=== PATIENT | male | born 1975 | race African-American/Black ===

== ENCOUNTER 2016-09-23 21:11 | Inpatient (IN) ==
[2016-09-23] MEDS ORDERED: ONDANSETRON 4 MG/2 ML VIAL IV STA (21:59)
[2016-09-23] MEDS ORDERED: SODIUM CHLORIDE 0.9% 500 ML IV STA (21:59)
[2016-09-23] MEDS ORDERED: PANTOPRAZOLE 40 MG VIAL IV STA (21:59)
[2016-09-23] MEDS ORDERED: MORPHINE 2 MG/1 ML SYRINGE IV STA (21:59)
[2016-09-23] MEDS ORDERED: GLUCAGON 1 MG VIAL IV STA (21:59)
--- NOTE | 2016-09-23 22:03 | EKG Report ---
Stationary ECG Study [facility] ER Test Date: 09/23/2016 9:24:02 PM Pat Name: ELEAZAR CLIFTON Department: Room: Gender: M Post Form Remover: Debbie : 1975 Requested by: Lázaro Gant Order Number: [id number] Reading MD: NILAM BENITEZ Intervals [place] Rate: 83 P: 68 PA: 147 QRS: 43 QRSD: 101 T: 59 QT: 361 QTc: 401 Interpretive Statements SINUS RHYTHM Electronically Signed On 09-24-16 17:48:38 CDT by NILAM BENITEZ [email or web address]
--- NOTE | 2016-09-23 22:08 | Emergency Department Note ---
Carmelo Reyna Emily, am scribing for, and in the presence of, Lázaro Chairez MD 22: 07. Mihaela Reyna Charles R, MD, personally performed the services described in this documentation, ascribed by Janie Rhodes in my presence, and it is both accurate and complete . Arrival - Arrival Chief Complaint: Chest Pain Stated Complaint: CHEST PAIN/COUGHING UP BLOOD ED Nursing Triage Note: c/o chest pain in center of the chest since tuesday. some nausea, and coughing up blood, dizzy and SOB. states he has not ate in 1 week Mode of Arrival: Ambulatory Limitations: No Limitations Source: Patient - History of Present Illness HPI Narrative: Pt is a 41 y/o male who came to ED with c/o epigastric pain that has been ongoing since Tuesday, September 18, 2016. Pt states that food and fluids are coming back up from esophagus. Pt has a 10 second delay after drinking water in ED, when fluid comes up with blood tinge in color fluid. Pt states it suddenly started today after drinking gatorade and noticed blood in his emesis. He notes not eating solid food for this past week and denies melena. Pt reports having this issue at 17yr old, but nothing was down about it. He does drink ETOH of one pint of liquor per night, but notes not drinking anything since last Tuesday. Pt is a smoker too. He notes having a non painful umbilical hernia for years. No daily medication taken. Onset (ago): hour(s) Consistency: constant Severity: mild, moderate Severity scale (1-10): 4 Quality: fullness Allergies/Adverse Reactions: Allergies Allergy/AdvReac Type Severity Reaction Status Date / Time No Known Allergies Allergy Unverified 09/23/16 21:19 Home Medications: Home Medications Medication Instructions Recorded Confirmed Type No Known Home Medications [No 09/23/16 09/23/16 History Known Home Medications] Review of System - Review of System 12 point system: reviewed and no additional remarkable complaints except as stated - Review of System Constitutional: Absent: chills, fever Respiratory: Absent: respiratory distress Cardiovascular: Absent: chest pain Gastrointestinal: Present: abdominal pain (epigastric, mid sternum), nausea, vomiting (blood in vomit), other (food or fluids stuck in esophagus then comes back up). Absent: diarrhea, melena Musculoskeletal: Absent: arm pain, back pain, leg pain, neck pain Skin: Absent: rash Neurological: Absent: headache Psychiatric: Absent: anxiety Medical,Surgical,& Family Hx - Surgical History Orthopedic Surgeries: Surgical HX of;: Orthopedic Surgery (bilateral ACL) - Social History Smoking Status: Current every day smoker Frequency of Alcohol Use: Frequently Type of Drug Use: None Exam Vital Signs: Vital Signs Temperature 98.2 F 09/23/16 21:15 Pulse Rate 87 09/23/16 21:15 Respiratory Rate 20 09/23/16 21:15 Blood Pressure 135/93 09/23/16 21:15 O2 Sat by Pulse Oximetry 97 09/23/16 21:15 - General General appearance: alert, in no apparent distress - Head Head exam: Present: atraumatic, normocephalic - Eye Eye exam: Present: PERRL, EOMI - ENT ENT exam: Present: mucous membranes moist. Absent: mucous membranes dry - Neck Neck exam: Present: full ROM. Absent: tenderness - Chest Chest inspection: Present: symmetric chest wall rise. Absent: tenderness - Respiratory Respiratory exam: Present: normal lung sounds bilaterally. Absent: respiratory distress - Cardiovascular Cardiovascular exam: Present: regular rate, normal rhythm, normal heart sounds - Abdominal Exam Abdominal exam: Present: soft, tenderness (epigastric and mid epigastric), normal bowel sounds, hernia (reducible umbilical; non tenderness). Absent: distention, guarding, rebound - Extremities Exam Extremities exam: Present: full ROM. Absent: tenderness, pedal edema - Back Exam Back exam: Present: full ROM. Absent: tenderness - Neurological Exam Neurological exam: Present: alert, oriented X3, CN II-XII intact. Absent: motor sensory deficit - Psychiatric Psychiatric exam: Present: normal affect, normal mood - Skin Skin exam: Present: warm, dry, intact, normal color Course - Consultations Consultation #1: Hospitalist will admit patient Time: 23:23 Results - Labs CBC & BMP: 09/23/16 21:55 09/23/16 21:55 Lab Results: I have reviewed the patients labs - Diagnostic Findings Procedure: Chest x-ray: report reviewed by me (Mild pulmonary hypoinflation with atelectasis.) Critical Care Time Critical Care Time: Yes Total Critical Care Time: 60 Disposition Clinical Impression: Atypical chest pain, Dysphagia, Achalasia, Nausea & vomiting Case discussed with: patient Disposition: Still a Patient Condition: Stable Time of Disposition: 23:24
[2016-09-23 22:10] LABS: Basophils % 0.4 % (0.0-0.8); Eosinophils % 0.3 % (0.00-10.9); Hematocrit 47.3 VOL% (42.0-52.0); Hemoglobin 16.2 GM/DL (14.0-18.0); Immature Granulocytes % 0.1 %; Immature Granulocytes Absolute 0.01 #; Lymphocytes # 2.2 10*3/uL (1.4-4.0); Lymphocytes % 29.2 % (21.2-54.2); Mean Corpuscular HGB Conc 34.2 GM/DL (32-36); Mean Corpuscular Hemoglobin 32 PG (27-34); Mean Corpuscular Volume 93.3 FL (87-102); Mean Platelet Volume 9.9 FL (9.6-12.0); Monocytes # 0.4 10*3/uL (0.11-0.8); Neutrophils # 4.7 10*3/uL (1.4-7.4); Platelet Count 201 T/CUMM (130-400); Red Blood Count 5.07 MC/CUMM (3.8-5.5); Red Cell Distribution Width 13.2 % (9.3-17.3); White Blood Count 7.4 T/CUMM (4-12)
[2016-09-23 22:26] LABS: D-Dimer <= 0.5 MG/L FEU; PT Patient Result 10.5 SECS
--- NOTE | 2016-09-23 22:27 | XRay Report ---
XR chest 1V portable Indication: Chest pain. Chest one view: Heart size and mediastinal contour are normal. Lungs are hypoinflated but generally clear, except for minimal bibasilar atelectasis. Pleural spaces are clear. Bones are intact. Small curvilinear metallic density projects over the left mid chest. Impression: Mild pulmonary hypoinflation with atelectasis. PROCEDURE INTERPRETED AT [facility] DEPARTMENT OF RADIOLOGY Final Report Signed by: Marques Thibodeaux M.D.
--- NOTE | 2016-09-23 22:32 | CT Report ---
CT chest abdomen pelvis w con Indication: Chest pain, dysphagia, abdominal pain. CT CHEST, ABDOMEN AND PELVIS WITH CONTRAST DLP: 534 mGy*cm. One or more of the following dose reduction techniques was used: Automated exposure control, adjustment of the mA and/or kV according the patient size, or use of iterative reconstruction techniques. Comparison: None Technique: Axial CT images of the chest, abdomen and pelvis were obtained following the intravenous administration of Omnipaque 350, 100 cc. Oral contrast was not administered. Chest: Esophagus is dilated, fluid-filled with air-fluid levels on its entire length. Diffuse esophageal wall thickening noted as well. No hiatal hernia. Normal heart size. Aorta is unremarkable. No mediastinal, axillary or hilar lymphadenopathy. There are some small blebs at the pulmonary apices. Additionally, mild peribronchial thickening is noted in the lungs. No infiltrate, mass or pleural pathology identified. No bone lesions. Abdomen: Hypervascular focus posterior right liver lobe is present, rapidly washing out, consistent with a hemangioma. It measures 16 mm diameter. Liver is otherwise unremarkable. Gallbladder, spleen, pancreas, adrenal glands and the right kidney appear unremarkable. There is a nonobstructing 2 x 3 mm left kidney stone in the lower pole. No bowel obstruction, mesenteric edema or lymphadenopathy. Aorta is of normal caliber. Pelvis: Normal appendix without inflammation. Urinary bladder, prostate and rectosigmoid colon are within normal limits. No free fluid, free air or lymphadenopathy. Impression: 1. Evidence of achalasia with a dilated thick-walled esophagus. Does the patient have history of connective tissue disorder such as scleroderma? 2. Mild airways disease such as chronic bronchitis. Early/small blebs are present at both pulmonary apices. 3. Liver hemangioma. 4. Nonobstructing tiny left kidney stone. PROCEDURE INTERPRETED AT [facility] DEPARTMENT OF RADIOLOGY Final Report Signed by: Marques Thibodeaux M.D.
[2016-09-23 22:39] LABS: Alanine Aminotransferase 79 U/L (16-61); Albumin 4.2 G/DL (3.4-5.0); Alkaline Phosphatase 73 U/L (45-117); Amylase 122 U/L (25-115); Aspartate Amino Transferase 42 U/L (0-37); Blood Urea Nitrogen 19 MG/DL (7-18); Calcium 9.5 MG/DL (8.5-10.1); Glucose 131 MG/DL (74-106); Magnesium 2.4 MG/DL (1.8-2.4); Osmolality,Calculated 284.3 MOS/KG (273-304); Potassium 4.4 MMOL/L (3.5-5.1); Sodium 141 MMOL/L (136-145); Total Protein 7.6 G/DL (6.4-8.3)
[2016-09-23] MEDS ORDERED: GLUCAGON 1 MG VIAL ONE (22:57)
[2016-09-23] MEDS ORDERED: MORPHINE 2 MG/1 ML SYRINGE ONE (22:57)
[2016-09-23] MEDS ORDERED: PANTOPRAZOLE 40 MG VIAL IV ONE (22:57)
[2016-09-23] MEDS ORDERED: ONDANSETRON 4 MG/2 ML VIAL ONE (22:57)
--- NOTE | 2016-09-24 00:24 | Hospitalist History & Physical ---
Assessment and Plan (1) Achalasia Status: Acute Current Visit: Yes (2) Dysphagia Status: Acute Current Visit: Yes (3) Nausea & vomiting Status: Acute Assessment and plan: The results of the CT scan were reviewed. Patient definitely has achalasia. We will keep him n.p.o. Provide IV hydration check labs in the morning. We will consult GI. Current Visit: Yes History of Present Illness Chief complaint: Dysphasia History of present illness: Mr. Chavez is a 41 year old male with no significant past medical history presents to our ER tonight complaining of not being able to eat or drink anything. Patient reports even drinking water it would come up after a few seconds. Patient was coughing so bad earlier today he was starting to cough up spots of blood. Patient came up to our hospital for further evaluation. Patient had a CT scan that showed achalasia and I was consulted to admit the patient to the emergency room. Home Medications Medication Instructions Recorded Confirmed Type No Known Home Medications [No 09/23/16 09/23/16 History Known Home Medications] Allergies Allergy/AdvReac Type Severity Reaction Status Date / Time No Known Allergies Allergy Unverified 09/23/16 21:19 Medical,Surgical,& Family Hx - Medical History Medical History: noncontributory (None) - Surgical History Orthopedic Surgeries: Surgical HX of;: Orthopedic Surgery (bilateral ACL) - Social History Smoking Status: Current every day smoker Frequency of Alcohol Use: Frequently Type of Drug Use: None 12 point system: reviewed and no additional remarkable complaints except as stated Exam - Constitutional General appearance: normal weight - Head Head exam: Present: normal inspection - Eye Eye exam: Present: EOMI Pupils: Present: MAURICE - ENT ENT exam: Present: normal exam - Neck Neck exam: Present: normal inspection - Respiratory Respiratory exam: Present: clear to auscultation bilaterally - Cardiovascular Cardiovascular exam: Present: regular rate and rhythm - GI/Abdominal GI/Abdominal exam: Present: normal bowel sounds - Extremities Exam Extremities exam: Present: normal inspection - Back Exam Back exam: Present: normal inspection - Neurological Exam Neurological exam: Present: alert - Psychiatric Psychiatric exam: Present: normal affect - Skin Skin exam: Present: normal color Results - Labs CBC & BMP: 09/23/16 21:55 09/23/16 21:55
[2016-09-24] MEDS ORDERED: SODIUM CHLORIDE 0.9% 1,000 ML IV SCH (00:30)
[2016-09-24 07:20] LABS: Calcium 8.4 MG/DL (8.5-10.1); Osmolality,Calculated 286.8 MOS/KG (273-304)
[2016-09-24 07:42] LABS: Basophils % 0.5 % (0.0-0.8); Eosinophils # 0.1 10*3/uL (0.0-0.87); Eosinophils % 1.3 % (0.00-10.9); Immature Granulocytes % 0.5 %; Immature Granulocytes Absolute 0.04 #; Lymphocytes # 3.5 10*3/uL (1.4-4.0); Lymphocytes % 44.7 % (21.2-54.2); Mean Corpuscular HGB Conc 32.6 GM/DL (32-36); Mean Corpuscular Hemoglobin 31 PG (27-34); Mean Corpuscular Volume 96.4 FL (87-102); Mean Platelet Volume 9.8 FL (9.6-12.0); Monocytes # 0.6 10*3/uL (0.11-0.8); Monocytes % 7.1 % (1.7-12.7); Neutrophils # 3.6 10*3/uL (1.4-7.4); Neutrophils % 45.9 % (38.7-73.9); Platelet Count 186 T/CUMM (130-400); Red Blood Count 4.46 MC/CUMM (3.8-5.5); Red Cell Distribution Width 13.2 % (9.3-17.3); White Blood Count 7.9 T/CUMM (4-12)
--- NOTE | 2016-09-24 07:51 | EKG Report ---
Stationary ECG Study [facility] Test Date: 09/24/2016 7:52:02 AM Pat Name: ELEAZAR CLIFTON Department: Room: 540 Gender: M Uat Tester: MAGDALENA : 1975 Requested by: Lázaro Gant Order Number: [id number] Reading MD: NILAM BENITEZ Intervals [place] Rate: 73 P: 71 AK: 147 QRS: 80 QRSD: 106 T: 49 QT: 393 QTc: 418 Interpretive Statements SINUS RHYTHM Electronically Signed On 09-24-16 17:57:01 CDT by NILAM BENITEZ [id number]
--- NOTE | 2016-09-24 08:39 | Gastrointestinal Consult Note ---
<Janeth Melo - Last Filed: 09/24/16 09:20> Assessment and Plan (1) Dysphagia Status: Acute Assessment and plan: 09/23-One week history of inabilty to swallow liquids or solids w/o vomiting/ regurgitation with hemetemesis x 1 yesterday. Hx of heavy alcohol use. NSAID use recenlty. No prior endoscopy. Hgb stable at 14. Plan for EGD today to further evaluate. Plan and addendum to follow by Dr Banks. Current Visit: Yes History of Present Illness Chief complaint: Hemetemesis History of present illness: Mr. Chavez is a 41 year old male who presented to the hospital with onset of dysphagia, hemetemesis. Pt states that one week ago he had a fairly sudden onset of inability to swallow anything. He states as soon as he would swallow, within a few seconds it would come back up. He states he has tried several times over the last week to eat and everytime this would happen. He states that on last night, he had another episode of vomiting after eating and saw approximately a tablespoon of bright red blood mixed with some coffee ground emesis. He has not had a bowel movement in a week due to unable to eat anything but denies any melena or hematochezia prior to this. He states that he has never had this problem before. Denies any odonynphagia. Denies any fever, chills. He has had some weight loss just this week from not eating. Pt denies any chronic health issues. He takes 1-2 BC powders daily for the last week due to pain in his epigastric area. Denies regular GERD symptoms. He does smoke a 1/ 2 pack daily and for the last year has drank a 6 pack of beer and a pint of Gin on a daily basis on average. He drank prior to this past year but on occasion. His last drink was last Tuesday. He denies any history of DTs or withdrawal seizures and has not experienced any of these symptoms the past week. CT of abdomen shows achalasia with on other acute findings. Hgb is stable at 14. BUN/ Cr ration 13. Home Medications Medication Instructions Recorded Confirmed Type Esomeprazole Magnesium [Nexium] 40 mg PO DAILY #30 capsule 09/24/16 Rx Allergies Allergy/AdvReac Type Severity Reaction Status Date / Time No Known Allergies Allergy Unverified 09/23/16 21:19 Medical,Surgical,& Family Hx - Surgical History Orthopedic Surgeries: Surgical HX of;: Orthopedic Surgery (bilateral ACL) - Family History Family History: Reports;: Family Heart Disease (father), Family Hypertension ( sister ,mother), Additional Family History (father has asthma) - Social History Smoking Status: Current every day smoker Frequency of Alcohol Use: Frequently Type of Drug Use: None 12 point system: reviewed and no additional remarkable complaints except as stated - Constitutional Constitutional: Present: as per HPI - EENT Eyes: Present: as per HPI Ears: Present: as per HPI Nose, mouth and throat: Present: as per HPI - Cardiovascular Cardiovascular: Present: as per HPI - Respiratory Respiratory: Present: as per HPI - Gastrointestinal Gastrointestinal: Present: as per HPI, abdominal pain, coffee ground emesis, dysphagia, hematemesis, nausea, vomiting - Genitourinary Genitourinary: Present: as per HPI - Musculoskeletal Musculoskeletal: Present: as per HPI - Neurological Neurological: Present: as per HPI - Psychiatric Psychiatric: Present: as per HPI - Endocrine Endocrine: Present: as per HPI - Hematologic/Lymphatic Hematologic/Lymphatic: Present: as per HPI Exam - Constitutional Vitals: Period Temp Pulse Resp BP Sys/Nieves Pulse Ox Last 24 Hr 97.5 F-98.2 F 61-73 18-20 131-152/82-103 98-100 General appearance: normal weight, no acute distress - Head Head exam: Present: normal inspection, normocephalic - Eye Eye exam: Present: other (lids and conjunctiva unremarkable). Absent: scleral icterus - ENT ENT exam: Present: normal exam, normal oropharynx - Neck Neck exam: Present: normal inspection - Respiratory Respiratory exam: Present: clear to auscultation bilaterally. Absent: rales, rhonchi, wheezes - Cardiovascular Cardiovascular exam: Present: regular rate and rhythm. Absent: diastolic murmur , JVD, systolic murmur - GI/Abdominal GI/Abdominal exam: Present: normal bowel sounds, tenderness, soft. Absent: ascites, distended, mass, organomegaly - Back Exam Back exam: Present: normal inspection - Neurological Exam Neurological exam: Present: alert, oriented X3 - Psychiatric Psychiatric exam: Present: normal affect, normal mood - Skin Skin exam: Present: normal color, warm, dry Results - Labs CBC & BMP: 09/24/16 06:10 09/24/16 06:10 Lab Results: I have reviewed the past 24 hour labs - Diagnostic Findings Procedure: CT Abdomen and Pelvis: report reviewed by me <Lobito Banks - Last Filed: 09/24/16 12:34> History of Present Illness History of present illness: Mr. Chavez is a 41 year old male Exam - Constitutional Vitals: Period Temp Pulse Resp BP Sys/Nieves Pulse Ox Last 24 Hr 97.5 F-98.2 F 58-73 16-20 131-152/82-107 98-100 Results - Labs CBC & BMP: 09/24/16 06:10 09/24/16 06:10
[2016-09-24] MEDS ORDERED: PANTOPRAZOLE 40 MG VIAL IV SCH (09:00)
[2016-09-24] MEDS ORDERED: NICOTINE 21 MG/24 HR PATCH TRANSDERM SCH (10:00)
--- NOTE | 2016-09-24 10:47 | Discharge Summary ---
Hospital Course - Hospital Course Hospital Course: 41-year-old -German male presents emergency room with complaints of painful swallowing. Patient's symptoms are consistent with achalasia and GI was consulted. Dr. Banks did an EGD today which shows that patient has gastric ulcers, Abena-Deshpande tear and dilated esophagus with retained fluid suggestive of achalasia. He recommends PPIs twice a day. Patient does not have insurance and we will have him take [id number] Nexium twice a day. Patient is a heavy drinker and a smoker both of which are worsening these conditions. Dr. Banks recommended a barium swallow and for him to stop drinking ETOH. Barium swallow findings are consistent with achalasia. He will need outpatient manometry. Procardia XL prescribes prn chest pain. F/U with Dr. Banks in 1-2 weeks - Time spent with patient Time with patient DS: Less than 30 minutes (25 min) Specialty Discharge - Follow Up or Referrals Follow up with: [facility] [Provider Group] - 1 Month (Call Tuesday for an appointment) Lobito Banks MD [Physician] - 2 Weeks Discharge Plan - Discharge Data Disposition: Disch To Home/Self Care Condition at Discharge: Stable Discharge Diet: heart healthy Activity: resume usual activities as tolerated Hygiene: no restrictions Weight Bearing at Discharge: full weight bearing - Discharge Medications New NIFEdipine CAP [Procardia] 10 mg PO TID PRN #90 capsule PRN Reason: Chest Pain Continue Esomeprazole Magnesium [Nexium] 40 mg PO DAILY #60 capsule - Follow Up or Referral Follow Up: [facility] [Provider Group] - 1 Month (Call Tuesday for an appointment) Lobito Banks MD [Physician] - 2 Weeks - Forms/Instructions Instructions: Esomeprazole (By mouth), Chest Pain (DC), Chronic Dysphagia (DC) Additional Discharge Instructions: discharge after EGD, please call me when EGD done. Needs to stop drinking. Nexium is over the counter. Outpatient manometry through Dr. Brambila office Exam - Constitutional Vitals: Period Temp Pulse Resp BP Sys/Nieves Pulse Ox Last 24 Hr 97.5 F-98.2 F 61-73 18-20 131-152/82-103 98-100 General appearance: normal weight, no acute distress - Respiratory Respiratory exam: Present: clear to auscultation bilaterally. Absent: rhonchi, wheezes - Cardiovascular Cardiovascular exam: Present: regular rate and rhythm - GI/Abdominal GI/Abdominal exam: Present: normal bowel sounds, soft. Absent: tenderness - Extremities Exam Extremities exam: Present: normal inspection, normal capillary refill Discharge Results Labs on day of discharge: Labs from last 24 hours 09/24/16 09/24/16 09/24/16 06:10 06:10 06:10 WBC 7.9 RBC 4.46 Hgb 14.0 D Hct 43.0 MCV 96.4 MCH 31 MCHC 32.6 RDW 13.2 Plt Count 186 MPV 9.8 Neut % (Auto) 45.9 Lymph % (Auto) 44.7 Loup % (Auto) 7.1 Eos % (Auto) 1.3 Baso % (Auto) 0.5 Neut # (Auto) 3.6 Lymph # (Auto) 3.5 [place]oup # (Auto) 0.6 Eos # (Auto) 0.1 Baso # (Auto) 0.0 Immature Gran % 0.5 Nucleated RBC % 0.0 Immature Gran # 0.04 Nucleated RBCs # 0.00 Sodium 144 Potassium 4.0 Chloride 108 H Carbon Dioxide 27 Anion Gap 13.0 BUN 15 Creatinine 1.10 GFR Calculation 100 BUN/Creatinine Ratio 13.00 Glucose 103 Calculated Osmolality 286.8 Calcium 8.4 L Troponin I < 0.015 09/24/16 01:22 WBC RBC Hgb Hct MCV MCH MCHC RDW Plt Count MPV Neut % (Auto) Lymph % (Auto) [place] % (Auto) Eos % (Auto) Baso % (Auto) Neut # (Auto) Lymph # (Auto) Loup # (Auto) Eos # (Auto) Baso # (Auto) Immature Gran % Nucleated RBC % Immature Gran # Nucleated RBCs # Sodium Potassium Chloride Carbon Dioxide Anion Gap BUN Creatinine GFR Calculation BUN/Creatinine Ratio Glucose Calculated Osmolality Calcium Troponin I < 0.015 DS: Provider Date of admission: 09/23/16 23:20 Primary care physician: . No PCP Attending physician on admission: Rosmery Clark MD Consults: 09/24/16 00:17 Consult to Physician [CONS] Routine Comment: Achalasia Consulting Provider: Lobito Banks Consult to Specialist Group: Gastroenterology When should Consulting Provider be notified: In am Person Notified: CASIE SEAY Date Notified: 09/24/16 Time Notified: 08:54 Discharging clinician: Rosmery Clark MD
[2016-09-24] MEDS ORDERED: PROPOFOL 200 MG/20 ML VIAL IV ONE (12:21)
[2016-09-24] MEDS ORDERED: LIDOCAINE 2% 5 ML VIAL ONE (12:21)
--- NOTE | 2016-09-24 12:37 | Anesthesia ---
Anesthesia Post OP - Post Ansesthetic Evaluation Patient seen in post op: Yes Resp: within normal limits CV: within normal limits Mental: within normal limits Temp: within normal limits [id number]: within normal limits Nausea and Vomiting: within normal limits Pain: within normal limits
--- NOTE | 2016-09-24 12:37 | History and Physical Update ---
History and Physical Update - History and Physical H&P was reviewed, the patient examined and there: are no changes in the patients condition since last H&P was completed. - Physical Exam Mental Status: alert and oriented Heart: regular rate and rhythm Lung: clear to auscultation Abdomen: within normal limits Vitals: within normal limits
--- NOTE | 2016-09-24 12:43 | Operative Note ---
Date of procedure: 09/24/16 Pre-op diagnosis: Dysphagia, dilated esophagus on CT, hematemesis Procedure: Procedure: Esophagogastroduodenoscopy with biopsies gastric ulcers Brief clinical abstract: Patient is a 41-year-old male with history of alcohol abuse admitted after a couple of episodes of scant hematemesis last night. He has been hemodynamically stable. Hemoglobin is 14. He does complain of difficulty swallowing over the last week with intermittent nausea and vomiting. Indication for procedure: Hematemesis, dysphagia Endoscopic findings:[After informed consent was obtained, the patient was placed in the left lateral decubitus position. The gastroscope was inserted in the upper esophagus under direct vision with no resistance encountered. Esophageal mucosa was carefully examined. Esophageal lumen was moderately dilated. There was some retained fluid in the esophagus estimated to be 15-20 cc which was suctioned. In the distal 2-3 cm of the esophagus there was a Abena-Deshpande tear anteriorly with no visible vessel or clot. Squamocolumnar junction was sharply demarcated above a small hiatal hernia. The endoscope was advanced in the stomach which was carefully examined including retroflexed view of the cardia and fundus. 2 ulcers with diameters between 1 and 2 cm diameter were noted just distal to the angularis. Both of these were clean base with no mass-effect and no visible vessel. Multiple biopsies were obtained from them for pathologic examination. Patient has gastritis changes throughout the stomach. The pyloric channel, duodenal bulb, second and third portion of the duodenum were normal. The endoscope was removed and patient appeared to tolerate the procedure well. Impression: #1 gastric ulcers-appearance suggests low risk of significant further bleeding #2 Abena-Deshpande tear #3 dilated esophagus with some retained fluid-could suggest achalasia Recommendations: PPI therapy daily. If discharged today, schedule outpatient barium swallow to assess dysphagia symptoms and dilated esophagus further. Stop drinking alcohol. Anesthesia: MAC Surgeon / Physician: Lobito Banks Estimated blood loss: minimal Specimens: other (Gastric ulcers) Condition: stable Disposition: post procedure unit Results - Labs CBC & BMP: 09/24/16 06:10 09/24/16 06:10 Discharge Plan - Discharge Data Disposition: Disch To Home/Self Care - Discharge Medications New Esomeprazole Magnesium [Nexium] 40 mg PO DAILY #30 capsule - Follow Up or Referral - Forms/Instructions Instructions: Esomeprazole (By mouth), Chest Pain (DC)
--- NOTE | 2016-09-24 14:19 | Fluoroscopy Report ---
Barium swallow Indication: Achalasia Findings: There is poor primary peristalsis and dilatation of the esophagus. No mass effect, ulceration or filling defects are identified. A few tertiary contractions were visualized. There is tapering of the distal esophagus and poor emptying of the esophageal contents. No other abnormalities were demonstrated. Fluoroscopy time 26 seconds. Impression: Findings as described above, can be seen with achalasia. PROCEDURE INTERPRETED AT [facility] DEPARTMENT OF RADIOLOGY Final Report Signed by: Dr. Adarsh Watkins
[2016-09-24 16:31] VITALS: BP 136/87
--- NOTE | 2016-09-27 11:23 | Pathology Report from [facility] ---
ACCESSION # : [id number] PATIENT NAME : Eleazar Chavez ORDERING DR : YASH MENDEZ MD CLINICAL HX: Gastric ulcers POST-OP DX: Same SPECIMEN INFO: Gastric ulcers GROSS DESCRIPTION: Received in formalin labeled "ELEAZAR CHAVEZ" is a 0.5 x 0.4 cm aggregate of tissue submitted in one cassette. DIAGNOSIS FOR ELEAZAR CHAVEZ: GASTRIC ULCERS BIOPSY: Acute and chronic gastritis with reactive glandular changes. H. pylori not seen on special stain. SERVICE DATE: 09/26/2016 REPORT DATE: 09/27/2016 PATHOLOGIST: Kimberley Choi M.D. [facility]
== END 2016-09-24 16:40 | disposition home or self-care (01) | DRG 391 ==
LOC: N.ED 21:11 → N.EDINP 23:20 → N.5E 23:54
PROVIDERS: ADMIT Internal Medicine; ATTEND Internal Medicine

== ENCOUNTER 2018-08-17 19:31 | Inpatient (IN) ==
[2018-08-17 20:02] LABS: Basophils # 0.1 10*3/uL (0.0-0.2); Basophils % 0.5 % (0.0-0.8); Eosinophils % 0.3 % (0.00-10.9); Hematocrit 42.8 VOL% (42.0-52.0); Hemoglobin 14.2 GM/DL (14.0-18.0); Immature Granulocytes % 0.3 %; Immature Granulocytes Absolute 0.03 #; Lymphocytes # 2.5 10*3/uL (1.4-4.0); Lymphocytes % 22.3 % (21.2-54.2); Mean Corpuscular HGB Conc 33.2 GM/DL (32-36); Mean Corpuscular Hemoglobin 32 PG (27-34); Mean Corpuscular Volume 95.7 FL (87-102); Mean Platelet Volume 9.3 FL (9.6-12.0); Monocytes # 0.7 10*3/uL (0.11-0.8); Monocytes % 6.5 % (1.7-12.7); Neutrophils # 7.8 10*3/uL (1.4-7.4); Neutrophils % 70.1 % (38.7-73.9); Platelet Count 213 T/CUMM (130-400); Red Blood Count 4.47 MC/CUMM (3.8-5.5); Red Cell Distribution Width 14.1 % (9.3-17.3); White Blood Count 11.1 T/CUMM (4-12)
[2018-08-17] MEDS ORDERED: ALUM/MAG/SIMETH/LIDO VISC 1:1 30 ML BOTTLE PO STA (20:27)
[2018-08-17] MEDS ORDERED: THIAMINE INJ 100 MG, FOLIC ACID INJ 1 MG, MAGNESIUM SULF INJ 2 GM, MULTIVITAMIN INJ 10 ... IV ONE (20:27)
[2018-08-17 20:31] LABS: Alanine Aminotransferase 101 U/L (16-61); Albumin 3.6 G/DL (3.4-5.0); Alkaline Phosphatase 90 U/L (45-117); Aspartate Amino Transferase 119 U/L (0-37); Bilirubin,Total < 0.39 MG/DL (0.2-1.0); Blood Urea Nitrogen 7 MG/DL (7-18); Calcium 8.2 MG/DL (8.5-10.1); Glucose 177 MG/DL (74-106); Osmolality,Calculated 278.5 MOS/KG (273-304); Potassium 3.2 MMOL/L (3.5-5.1); Sodium 139 MMOL/L (136-145); Total Protein 7.1 G/DL (6.4-8.3)
[2018-08-17] MEDS ORDERED: MORPHINE 4 MG/1 ML VIAL IV STA (21:10)
[2018-08-17] MEDS ORDERED: ONDANSETRON 4 MG/2 ML VIAL IV ONE (21:10)
[2018-08-17] MEDS ORDERED: PROMETHAZINE 25 MG/1 ML VIAL IM PRN (23:32)
[2018-08-17] MEDS ORDERED: NICOTINE 21 MG/24 HR PATCH TRANSDERM PRN (23:32)
[2018-08-17] MEDS ORDERED: ACETAMINOPHEN 325 MG TABLET PO PRN (23:32)
[2018-08-18 00:04] LABS: Risk Ratio 1.43; VLDL CHOLESTEROL 18.4 MG/DL
[2018-08-18 01:11] LABS: Alanine Aminotransferase 105 U/L (16-61); Albumin 3.6 G/DL (3.4-5.0); Alkaline Phosphatase 91 U/L (45-117); Aspartate Amino Transferase 125 U/L (0-37); Bilirubin,Indirect 0.3 MG/DL (0.0-1.0); Bilirubin,Total < 0.39 MG/DL (0.2-1.0); Total Protein 7.2 G/DL (6.4-8.3)
[2018-08-18] MEDS: MORPHINE 4 MG/1 ML VIAL IV PRN ×2 (01:20→05:15)
[2018-08-18] MEDS: SODIUM CHLORIDE 0.9% 1,000 ML IV SCH ×3 (01:21→13:21)
[2018-08-18 01:55] LABS: Hepatitis A Ab IgM Quant 0.22 Index; Hepatitis A Ab IgM Result Negative (Negative); Hepatitis B Core IgM Result Negative (Negative); Hepatitis B Surface Ag Quant < 0.10 Index; Hepatitis B Surface Ag Result Negative (Negative); Hepatitis C Virus Ab Quant 0.03 Index; Hepatitis C Virus Ab Result Negative (Negative)
[2018-08-18 04:55] LABS: Basophils % 0.2 % (0.0-0.8); Hematocrit 42.9 VOL% (42.0-52.0); Immature Granulocytes % 0.3 %; Immature Granulocytes Absolute 0.03 #; Lymphocytes # 1.1 10*3/uL (1.4-4.0); Lymphocytes % 11.2 % (21.2-54.2); Mean Corpuscular HGB Conc 32.6 GM/DL (32-36); Mean Corpuscular Hemoglobin 32 PG (27-34); Mean Corpuscular Volume 96.4 FL (87-102); Mean Platelet Volume 9.7 FL (9.6-12.0); Monocytes # 0.5 10*3/uL (0.11-0.8); Monocytes % 5.5 % (1.7-12.7); Neutrophils % 82.8 % (38.7-73.9); Platelet Count 191 T/CUMM (130-400); Red Blood Count 4.45 MC/CUMM (3.8-5.5); Red Cell Distribution Width 14.1 % (9.3-17.3); White Blood Count 9.6 T/CUMM (4-12)
[2018-08-18 05:00] LABS: Apearance,Urine CLEAR (Clear); Bilirubin,Urine Negative (Negative); Blood, Urine Small mg/dL (Negative); Glucose,Urine (UA) 50 mg/dL (Negative); Ketones,Urine 20 mg/dL (Negative); Mucus,Urine Occasional /LPF (Occasional); Nitrite,Urine Negative (Negative); Protein,Urine Negative; RBC,Urine 3 /HPF (0-4); Squamous Epithelial Cell,Urine Occasional /HPF (0-10); Urine Color Yellow (Yellow); Urine Urobilinogen < 2.0 EU/DL (0.2-1.0)
[2018-08-18 05:03] LABS: Barbiturates Screen,Urine Negative (Negative); Benzodiazepines Screen,Urine Negative (Negative); Cannabinoid Screen,Urine Negative (Negative); Opiate Screen,Urine Positive (Negative); Phencyclidine Screen,Urine Negative (Negative)
[2018-08-18 05:08] LABS: Albumin 3.5 G/DL (3.4-5.0); Bilirubin,Total 0.6 MG/DL (0.2-1.0); Calcium 7.3 MG/DL (8.5-10.1); Osmolality,Calculated 276.4 MOS/KG (273-304); Potassium 3.5 MMOL/L (3.5-5.1)
[2018-08-18] MEDS: ONDANSETRON 4 MG/2 ML VIAL IV PRN ×4 (05:15→17:27)
[2018-08-18] MEDS: HYDROmorphone 2 MG/1 ML VIAL IV PRN ×5 (06:14→22:31)
[2018-08-18] MEDS: PANTOPRAZOLE 40 MG VIAL IV SCH (09:14)
[2018-08-19] MEDS: SODIUM CHLORIDE 0.9% 1,000 ML IV SCH ×5 (00:15→15:05)
[2018-08-19] MEDS: HYDROmorphone 2 MG/1 ML VIAL IV PRN ×3 (02:13→16:17)
[2018-08-19 06:11] LABS: Osmolality,Calculated 268.8 MOS/KG (273-304); Potassium 3.5 MMOL/L (3.5-5.1)
[2018-08-19] MEDS: PANTOPRAZOLE 40 MG VIAL IV SCH (08:14)
[2018-08-19] MEDS: MAGNESIUM SULFATE 1 GM/2 ML VIAL IM SCH ×2 (10:58→16:11)
[2018-08-19] MEDS ORDERED: MAGNESIUM CITRATE 300 ML BOTTLE PO ONE (17:42)
[2018-08-19] MEDS ORDERED: MAGNESIUM SULF RIDER 4 GM in PREMIX 1 EACH IV PRN (17:43)
[2018-08-19] MEDS ORDERED: POTASSIUM CHLORIDE RIDER 10 MEQ in PREMIX 1 EACH IV PRN (17:43)
[2018-08-19] MEDS ORDERED: MAGNESIUM SULF RIDER 2 GM in PREMIX 1 EACH IV PRN (17:43)
[2018-08-19] MEDS ORDERED: hydrALAZINE 20 MG/1 ML VIAL IV PRN (17:45)
[2018-08-20] MEDS: SODIUM CHLORIDE 0.9% 1,000 ML IV SCH ×3 (00:52→07:30)
[2018-08-20] MEDS: HYDROmorphone 2 MG/1 ML VIAL IV PRN (04:23)
[2018-08-20 06:05] LABS: Calcium 7.3 MG/DL (8.5-10.1); Osmolality,Calculated 266.1 MOS/KG (273-304); Potassium 3.6 MMOL/L (3.5-5.1)
[2018-08-20] MEDS: PANTOPRAZOLE 40 MG TABLET PO SCH (08:17)
[2018-08-20] MEDS ORDERED: ALUMINUM/MAGNES/SIMETH MAX STR 30 ML UDCUP PO PRN (21:58)
[2018-08-21 09:27] LABS: Albumin 3.1 G/DL (3.4-5.0); Bilirubin,Direct 0.25 MG/DL (0.0-0.20); Bilirubin,Indirect 1.1 MG/DL (0.0-1.0); Bilirubin,Total 1.3 MG/DL (0.2-1.0); Total Protein 7.4 G/DL (6.4-8.3)
[2018-08-21] MEDS: PANTOPRAZOLE 40 MG TABLET PO SCH (09:29)
[2018-08-21 11:49] VITALS: BP 119/89
== END 2018-08-21 14:45 | disposition home or self-care (01) | DRG 440 ==
LOC: N.ED 19:31 → N.EDINP 23:32 → SUATTDRO 23:32 → N.2E 08-18 00:29
PROVIDERS: ADMIT Internal Medicine; ATTEND Internal Medicine

== ENCOUNTER 2019-11-08 05:03 | Observation (INO) ==
[2019-11-08] MEDS ORDERED: PANTOPRAZOLE 40 MG VIAL IV STA (06:14)
[2019-11-08] MEDS ORDERED: ONDANSETRON 4 MG/2 ML VIAL IV STA (06:14)
[2019-11-08] MEDS ORDERED: SODIUM CHLORIDE 0.9% 2,000 ML IV STA (06:14)
[2019-11-08] MEDS ORDERED: HYDROmorphone 2 MG/1 ML VIAL IV STA ×2 (06:14→07:30)
[2019-11-08 06:15] LABS: Basophils % 0.5 % (0.0-0.8); Eosinophils # 0.1 10*3/uL (0.0-0.87); Eosinophils % 1.1 % (0.00-10.9); Hematocrit 41.7 VOL% (42.0-52.0); Hemoglobin 14.4 GM/DL (14.0-18.0); Immature Granulocytes % 0.3 %; Immature Granulocytes Absolute 0.02 #; Lymphocytes # 1.6 10*3/uL (1.4-4.0); Lymphocytes % 21.6 % (21.2-54.2); Mean Corpuscular HGB Conc 34.5 GM/DL (32-36); Mean Corpuscular Volume 94.8 FL (87-102); Mean Platelet Volume 9.8 FL (9.6-12.0); Monocytes % 11.4 % (1.7-12.7); Neutrophils % 65.1 % (38.7-73.9); Platelet Count 267 T/CUMM (130-400); Red Cell Distribution Width 13.6 % (9.3-17.3); White Blood Count 7.5 T/CUMM (4-12)
[2019-11-08 06:31] LABS: Alanine Aminotransferase 149 U/L (16-61); Albumin 3.8 G/DL (3.4-5.0); Alkaline Phosphatase 151 U/L (45-117); Aspartate Amino Transferase 153 U/L (0-37); Bilirubin,Total < 0.39 MG/DL (0.2-1.0); Blood Urea Nitrogen 9 MG/DL (7-18); Calcium 9.6 MG/DL (8.5-10.1); Estimated Glom Filtration Rate 113 ML/MIN; Glucose 129 MG/DL (74-106); Osmolality,Calculated 275.7 MOS/KG (273-304); Total Protein 8.2 G/DL (6.4-8.3)
[2019-11-08] MEDS ORDERED: LORazepam 2 MG/1 ML VIAL IV PRN (07:02)
[2019-11-08 07:46] LABS: Apearance,Urine CLEAR (Clear); Bilirubin,Urine Negative (Negative); Blood, Urine Negative (Negative); Glucose,Urine (UA) Negative (Negative); Ketones,Urine Negative (Negative); Mucus,Urine Few /LPF (Occasional); Nitrite,Urine Negative (Negative); Protein,Urine Negative; RBC,Urine 3 /HPF (0-4); Squamous Epithelial Cell,Urine Occasional /HPF (0-10); Urine Color Yellow (Yellow); Urine Specific Gravity 1.054 (1.001-1.035); Urine Urobilinogen < 2.0 EU/DL (0.2-1.0); WBC,Urine <1 /HPF (0-6)
[2019-11-08 08:07] LABS: Barbiturates Screen,Urine Negative (Negative); Benzodiazepines Screen,Urine Negative (Negative); Cannabinoid Screen,Urine Negative (Negative); Opiate Screen,Urine Positive (Negative); Phencyclidine Screen,Urine Negative (Negative)
[2019-11-08] MEDS ORDERED: BISACODYL 5 MG TABLET PO PRN (09:08)
[2019-11-08] MEDS ORDERED: SIMETHICONE CHEW 125 MG TABLET PO PRN (09:08)
[2019-11-08] MEDS ORDERED: DOCUSATE SODIUM 100 MG CAPSULE PO PRN (09:08)
[2019-11-08] MEDS ORDERED: guaiFENesin/DM ER 600-30 MG TABLET PO PRN (09:08)
[2019-11-08] MEDS ORDERED: NICOTINE 21 MG/24 HR PATCH TRANSDERM PRN (09:08)
[2019-11-08] MEDS ORDERED: DEXTROSE 50% 25 GM/50 ML VIAL IV PRN (09:08)
[2019-11-08] MEDS ORDERED: diphenhydrAMINE CAP 25 MG CAPSULE PO PRN (09:08)
[2019-11-08] MEDS ORDERED: GLUCAGON 1 MG VIAL IM PRN (09:08)
[2019-11-08] MEDS ORDERED: hydrALAZINE 20 MG/1 ML VIAL IV PRN (09:08)
[2019-11-08] MEDS ORDERED: amLODIPine 5 MG TABLET PO STA (09:12)
[2019-11-08] MEDS ORDERED: carvediloL 3.125 MG TABLET PO STA (09:13)
[2019-11-08] MEDS: LACTATED RINGERS 1,000 ML IV SCH ×2 (09:21→20:38)
[2019-11-08] MEDS ORDERED: ALBUTEROL/IPRATROPIUM 3 ML NEB RESP TX PRN (09:23)
[2019-11-08] MEDS: THIAMINE 200 MG/2 ML VIAL IV SCH (09:27)
[2019-11-08] MEDS: ENOXAPARIN 40 MG/0.4 ML SYRINGE SUBCUT SCH (09:27)
[2019-11-08] MEDS: THIAMINE INJ 100 MG, FOLIC ACID INJ 1 MG, MULTIVITAMIN INJ 10 ML in SODIUM CHLORIDE 0.9... IV SCH (10:09)
[2019-11-08] MEDS: HYDROmorphone 2 MG/1 ML VIAL IV PRN ×3 (10:28→20:37)
[2019-11-08] MEDS: carvediloL 6.25 MG TABLET PO SCH (20:38)
[2019-11-09] MEDS: LACTATED RINGERS 1,000 ML IV SCH ×3 (00:44→11:16)
[2019-11-09] MEDS: HYDROmorphone 2 MG/1 ML VIAL IV PRN ×3 (02:45→13:43)
[2019-11-09 06:36] LABS: Basophils % 0.4 % (0.0-0.8); Eosinophils # 0.1 10*3/uL (0.0-0.87); Hemoglobin 12.5 GM/DL (14.0-18.0); Immature Granulocytes % 0.3 %; Immature Granulocytes Absolute 0.03 #; Lymphocytes # 1.7 10*3/uL (1.4-4.0); Lymphocytes % 16.3 % (21.2-54.2); Mean Corpuscular HGB Conc 33.8 GM/DL (32-36); Mean Corpuscular Volume 97.4 FL (87-102); Mean Platelet Volume 9.6 FL (9.6-12.0); Monocytes % 10.2 % (1.7-12.7); Neutrophils % 71.8 % (38.7-73.9); Platelet Count 236 T/CUMM (130-400); Red Cell Distribution Width 13.4 % (9.3-17.3); White Blood Count 10.5 T/CUMM (4-12)
[2019-11-09 06:51] LABS: Albumin 3.1 G/DL (3.4-5.0); Bilirubin,Total 0.9 MG/DL (0.2-1.0); Calcium 8.6 MG/DL (8.5-10.1); Osmolality,Calculated 257.7 MOS/KG (273-304); Total Protein 7.1 G/DL (6.4-8.3)
[2019-11-09 07:09] LABS: Ferritin 271.8 ng/ml (26-388)
[2019-11-09 07:25] LABS: Risk Ratio 2.16; VLDL CHOLESTEROL 14.8 MG/DL
[2019-11-09 07:41] LABS: Hepatitis B Core IgM Quant 0.17 Index; Hepatitis B Surface Ag Quant < 0.10 Index; Hepatitis B Surface Ag Result Negative (Negative); Hepatitis C Virus Ab Quant 0.09 Index; Hepatitis C Virus Ab Result Negative (Negative)
[2019-11-09] MEDS: THIAMINE 200 MG/2 ML VIAL IV SCH (08:00)
[2019-11-09] MEDS: carvediloL 6.25 MG TABLET PO SCH (08:00)
[2019-11-09] MEDS: ENOXAPARIN 40 MG/0.4 ML SYRINGE SUBCUT SCH ×2 (08:00→08:53)
[2019-11-09] MEDS ORDERED: MAGNESIUM SULF RIDER 2 GM in PREMIX 1 EACH IV PRN (08:24)
[2019-11-09] MEDS ORDERED: MAGNESIUM SULF RIDER 4 GM in PREMIX 1 EACH IV PRN (08:24)
[2019-11-09] MEDS ORDERED: PANTOPRAZOLE 40 MG TABLET PO SCH (09:00)
[2019-11-09] MEDS ORDERED: amLODIPine 10 MG TABLET PO SCH (09:00)
[2019-11-09] MEDS: THIAMINE INJ 100 MG, FOLIC ACID INJ 1 MG, MULTIVITAMIN INJ 10 ML in SODIUM CHLORIDE 0.9... IV SCH (09:03)
[2019-11-09 12:18] VITALS: BP 134/83
== END 2019-11-09 15:30 | disposition home or self-care (01) ==
LOC: N.EDINP 05:03 → N.ED 05:03 → SUATTDRO 09:00 → N.2E 12:14
PROVIDERS: ADMIT Internal Medicine; ATTEND Hospitalist

== ENCOUNTER 2019-11-23 15:20 | Inpatient (IN) ==
[2019-11-23] MEDS ORDERED: HYDROmorphone 2 MG/1 ML VIAL IV STA ×2 (16:16→19:43)
[2019-11-23] MEDS ORDERED: SODIUM CHLORIDE 0.9% 1,000 ML IV STA ×2 (16:16→18:37)
[2019-11-23] MEDS ORDERED: ONDANSETRON 4 MG/2 ML VIAL IV STA (16:17)
[2019-11-23] MEDS ORDERED: PANTOPRAZOLE 40 MG VIAL IV STA (16:17)
[2019-11-23 16:50] LABS: Basophils # 0.1 10*3/uL (0.0-0.2); Basophils % 0.3 % (0.0-0.8); Eosinophils # 0.2 10*3/uL (0.0-0.87); Eosinophils % 1.3 % (0.00-10.9); Hematocrit 42.7 VOL% (42.0-52.0); Hemoglobin 14.6 GM/DL (14.0-18.0); Immature Granulocytes % 0.5 %; Immature Granulocytes Absolute 0.07 #; Lymphocytes # 1.6 10*3/uL (1.4-4.0); Lymphocytes % 10.8 % (21.2-54.2); Mean Corpuscular HGB Conc 34.2 GM/DL (32-36); Mean Corpuscular Volume 94.5 FL (87-102); Mean Platelet Volume 9.5 FL (9.6-12.0); Monocytes % 4.2 % (1.7-12.7); Neutrophils % 82.9 % (38.7-73.9); Platelet Count 420 T/CUMM (130-400); Red Blood Count 4.52 MC/CUMM (3.8-5.5); Red Cell Distribution Width 13.3 % (9.3-17.3); White Blood Count 15.2 T/CUMM (4-12)
[2019-11-23 17:14] LABS: Albumin 3.2 G/DL (3.4-5.0); Bilirubin,Total 1.1 MG/DL (0.2-1.0); Calcium 9.8 MG/DL (8.5-10.1); Osmolality,Calculated 271.8 MOS/KG (273-304); Total Protein 8.3 G/DL (6.4-8.3)
[2019-11-23] MEDS ORDERED: PIPERACILLIN/TAZOBACTAM 3,375 MG in SODIUM CHLORIDE 0.9% 100 ML IV STA (18:37)
[2019-11-23 19:34] LABS: Apearance,Urine CLEAR (Clear); Bilirubin,Urine Negative (Negative); Blood, Urine Negative (Negative); Glucose,Urine (UA) Negative (Negative); Ketones,Urine Negative (Negative); Mucus,Urine Occasional /LPF (Occasional); Nitrite,Urine Negative (Negative); Protein,Urine 30 MG/DL; RBC,Urine 3 /HPF (0-4); Squamous Epithelial Cell,Urine Occasional /HPF (0-10); Urine Color Yellow (Yellow); Urine Specific Gravity > 1.060 (1.001-1.035)
[2019-11-23] MEDS ORDERED: GLUCAGON 1 MG VIAL IM PRN (19:41)
[2019-11-23] MEDS ORDERED: PROMETHAZINE 25 MG/1 ML VIAL IM PRN (19:41)
[2019-11-23] MEDS ORDERED: DEXTROSE 50% 25 GM/50 ML VIAL IV PRN (19:41)
[2019-11-23] MEDS ORDERED: HYDROmorphone 2 MG/1 ML VIAL IV PRN (19:41)
[2019-11-23 19:43] LABS: Barbiturates Screen,Urine Negative (Negative); Benzodiazepines Screen,Urine Negative (Negative); Cannabinoid Screen,Urine Negative (Negative); Opiate Screen,Urine Positive (Negative); Phencyclidine Screen,Urine Negative (Negative)
[2019-11-23] MEDS ORDERED: NICOTINE 21 MG/24 HR PATCH TRANSDERM PRN (19:52)
[2019-11-23] MEDS: carvediloL 6.25 MG TABLET PO SCH (23:02)
[2019-11-23] MEDS: ONDANSETRON 4 MG/2 ML VIAL IV PRN (23:02)
[2019-11-23] MEDS ORDERED: MORPHINE 4 MG/1 ML VIAL IV PRN (23:37)
[2019-11-23] MEDS: PANTOPRAZOLE INJ 200 MG in SODIUM CHLORIDE 0.9% 250 ML IV SCH (23:43)
[2019-11-23] MEDS: SODIUM CHLOR 0.9% KCL 20 MEQ 20 MEQ/1,000 ML BAG IV SCH (23:44)
[2019-11-24] MEDS ORDERED: POTASSIUM CHLORIDE 20 MEQ TABLET PO PRN (00:34)
[2019-11-24] MEDS: ALBUTEROL/IPRATROPIUM 3 ML NEB RESP TX SCH ×4 (00:47→19:50)
[2019-11-24] MEDS: PIPERACILLIN/TAZOBACTAM 3,375 MG in SODIUM CHLORIDE 0.9% 100 ML IV SCH ×3 (01:34→18:20)
[2019-11-24 02:18] LABS: Basophils # 0.1 10*3/uL (0.0-0.2); Basophils % 0.7 % (0.0-0.8); Eosinophils # 0.4 10*3/uL (0.0-0.87); Eosinophils % 4.2 % (0.00-10.9); Hematocrit 35.2 VOL% (42.0-52.0); Immature Granulocytes % 0.3 %; Immature Granulocytes Absolute 0.03 #; Lymphocytes % 21.8 % (21.2-54.2); Mean Corpuscular Volume 97.8 FL (87-102); Mean Platelet Volume 9.8 FL (9.6-12.0); Monocytes % 7.3 % (1.7-12.7); Neutrophils % 65.7 % (38.7-73.9); Platelet Count 357 T/CUMM (130-400); Red Cell Distribution Width 13.3 % (9.3-17.3)
[2019-11-24 02:29] LABS: Calcium 8.3 MG/DL (8.5-10.1); Osmolality,Calculated 274.5 MOS/KG (273-304)
[2019-11-24 02:33] LABS: Hemoglobin 11.6 GM/DL (14.0-18.0); White Blood Count 9.1 T/CUMM (4-12)
[2019-11-24] MEDS ORDERED: MORPHINE 10 MG/1 ML VIAL IV ONE (05:30)
[2019-11-24] MEDS ORDERED: MORPHINE 4 MG/1 ML VIAL IV PRN (05:30)
[2019-11-24 08:07] LABS: Hematocrit 34.2 VOL% (42.0-52.0); Hemoglobin 11.5 GM/DL (14.0-18.0)
[2019-11-24] MEDS: SODIUM CHLOR 0.9% KCL 20 MEQ 20 MEQ/1,000 ML BAG IV SCH ×2 (08:47→22:29)
[2019-11-24] MEDS: carvediloL 6.25 MG TABLET PO SCH ×2 (10:47→18:11)
[2019-11-24] MEDS: FOLIC ACID 1 MG TABLET PO SCH (10:47)
[2019-11-24] MEDS: MULTIVITAMIN (CENTRUM) TABLET PO SCH (10:47)
[2019-11-24] MEDS: THIAMINE 100 MG TABLET PO SCH (10:48)
[2019-11-24] MEDS: amLODIPine 10 MG TABLET PO SCH (10:48)
[2019-11-24] MEDS: ONDANSETRON 4 MG/2 ML VIAL IV PRN (11:20)
[2019-11-24] MEDS: ursodioL 300 MG CAPSULE PO SCH ×2 (13:07→21:09)
[2019-11-24 13:43] LABS: Hematocrit 35.9 VOL% (42.0-52.0); Hemoglobin 11.6 GM/DL (14.0-18.0)
[2019-11-24] MEDS: MORPHINE 4 MG/1 ML VIAL IV PRN ×2 (16:49→21:10)
[2019-11-24] MEDS: diphenhydrAMINE CAP 25 MG CAPSULE PO PRN ×2 (16:50→21:09)
[2019-11-24] MEDS: POTASSIUM CHLORIDE INJ 10 MEQ in LACTATED RINGERS 1,000 ML IV SCH ×3 (16:52→22:40)
[2019-11-24] MEDS: PANTOPRAZOLE INJ 200 MG in SODIUM CHLORIDE 0.9% 250 ML IV SCH (22:41)
[2019-11-25] MEDS: PIPERACILLIN/TAZOBACTAM 3,375 MG in SODIUM CHLORIDE 0.9% 100 ML IV SCH (01:19)
[2019-11-25] MEDS: ALBUTEROL/IPRATROPIUM 3 ML NEB RESP TX SCH ×4 (02:11→20:12)
[2019-11-25] MEDS: POTASSIUM CHLORIDE INJ 10 MEQ in LACTATED RINGERS 1,000 ML IV SCH ×5 (05:49→23:21)
[2019-11-25] MEDS: MORPHINE 4 MG/1 ML VIAL IV PRN ×4 (05:51→21:09)
[2019-11-25] MEDS: ursodioL 300 MG CAPSULE PO SCH ×2 (08:22→21:07)
[2019-11-25] MEDS: FOLIC ACID 1 MG TABLET PO SCH (08:23)
[2019-11-25] MEDS: amLODIPine 10 MG TABLET PO SCH (08:23)
[2019-11-25] MEDS: MULTIVITAMIN (CENTRUM) TABLET PO SCH (08:23)
[2019-11-25] MEDS: carvediloL 6.25 MG TABLET PO SCH ×2 (08:23→18:07)
[2019-11-25] MEDS: THIAMINE 100 MG TABLET PO SCH (08:23)
[2019-11-25] MEDS: diphenhydrAMINE CAP 25 MG CAPSULE PO PRN (21:07)
[2019-11-25] MEDS: PANTOPRAZOLE INJ 200 MG in SODIUM CHLORIDE 0.9% 250 ML IV SCH (23:23)
[2019-11-26] MEDS: ALBUTEROL/IPRATROPIUM 3 ML NEB RESP TX SCH ×4 (01:05→20:02)
[2019-11-26] MEDS: POTASSIUM CHLORIDE INJ 10 MEQ in LACTATED RINGERS 1,000 ML IV SCH ×4 (04:28→20:14)
[2019-11-26] MEDS: MORPHINE 4 MG/1 ML VIAL IV PRN ×2 (09:37→21:46)
[2019-11-26] MEDS: carvediloL 6.25 MG TABLET PO SCH ×2 (09:40→17:18)
[2019-11-26] MEDS: FOLIC ACID 1 MG TABLET PO SCH (09:40)
[2019-11-26] MEDS: MULTIVITAMIN (CENTRUM) TABLET PO SCH (09:40)
[2019-11-26] MEDS: ursodioL 300 MG CAPSULE PO SCH ×2 (09:40→20:31)
[2019-11-26] MEDS: THIAMINE 100 MG TABLET PO SCH (09:40)
[2019-11-26] MEDS: amLODIPine 10 MG TABLET PO SCH (09:42)
[2019-11-26] MEDS: diphenhydrAMINE CAP 25 MG CAPSULE PO PRN (21:48)
[2019-11-27] MEDS: ALBUTEROL/IPRATROPIUM 3 ML NEB RESP TX SCH ×5 (01:31→19:16)
[2019-11-27] MEDS: PANTOPRAZOLE INJ 200 MG in SODIUM CHLORIDE 0.9% 250 ML IV SCH (01:42)
[2019-11-27] MEDS: POTASSIUM CHLORIDE INJ 10 MEQ in LACTATED RINGERS 1,000 ML IV SCH ×3 (01:43→20:56)
[2019-11-27] MEDS: MORPHINE 4 MG/1 ML VIAL IV PRN (01:47)
[2019-11-27 07:01] LABS: Basophils # 0.1 10*3/uL (0.0-0.2); Eosinophils # 0.3 10*3/uL (0.0-0.87); Eosinophils % 4.2 % (0.00-10.9); Hematocrit 39.4 VOL% (42.0-52.0); Immature Granulocytes % 0.3 %; Immature Granulocytes Absolute 0.02 #; Lymphocytes # 2.5 10*3/uL (1.4-4.0); Lymphocytes % 34.2 % (21.2-54.2); Mean Corpuscular Volume 96.8 FL (87-102); Mean Platelet Volume 9.6 FL (9.6-12.0); Monocytes % 8.3 % (1.7-12.7); Platelet Count 347 T/CUMM (130-400); Red Blood Count 4.07 MC/CUMM (3.8-5.5); Red Cell Distribution Width 13.2 % (9.3-17.3); White Blood Count 7.3 T/CUMM (4-12)
[2019-11-27 07:10] LABS: INR 1.1; PT Patient Result 11.4 SECS (9.8-11.9)
[2019-11-27 07:28] LABS: Eosinophils 3 % (0-10); Hypochromasia 1+; Lymphocytes 41 % (20-55); Microcytosis Slight; Platelet Estimate Adequate; Segmented Neutrophils 54 % (50-85); Total Cells Counted 100
[2019-11-27] MEDS ORDERED: LACTATED RINGERS 1,000 ML IV SCH (08:00)
[2019-11-27] MEDS ORDERED: INDOMETHACIN SUPP 50 MG SUPP RECTAL ONE ×2 (08:00→12:12)
[2019-11-27] MEDS: ursodioL 300 MG CAPSULE PO SCH ×2 (09:05→22:01)
[2019-11-27] MEDS: MULTIVITAMIN (CENTRUM) TABLET PO SCH (09:05)
[2019-11-27] MEDS: FOLIC ACID 1 MG TABLET PO SCH (09:05)
[2019-11-27] MEDS: THIAMINE 100 MG TABLET PO SCH (09:05)
[2019-11-27] MEDS: carvediloL 6.25 MG TABLET PO SCH ×2 (09:08→20:56)
[2019-11-27] MEDS: PANTOPRAZOLE 40 MG TABLET PO SCH ×2 (09:09→22:01)
[2019-11-27] MEDS: amLODIPine 10 MG TABLET PO SCH (09:09)
[2019-11-27 09:15] LABS: Calcium 9.3 MG/DL (8.5-10.1); Osmolality,Calculated 263.4 MOS/KG (273-304)
[2019-11-27] MEDS ORDERED: GLUCAGON 1 MG VIAL ONE (12:07)
[2019-11-27] MEDS ORDERED: GLYCOPYRROLATE 0.4 MG/2 ML VIAL ONE (12:33)
[2019-11-27] MEDS ORDERED: MIDAZOLAM 2 MG/2 ML VIAL ONE ×2 (12:33→13:31)
[2019-11-27] MEDS ORDERED: ONDANSETRON 4 MG/2 ML VIAL ONE (12:33)
[2019-11-27] MEDS ORDERED: ROCURONIUM 100 MG/10 ML VIAL IV ONE (12:33)
[2019-11-27] MEDS ORDERED: LIDOCAINE 2% 5 ML VIAL ONE (12:33)
[2019-11-27] MEDS ORDERED: propofoL 200 MG/20 ML VIAL IV ONE (12:33)
[2019-11-27] MEDS ORDERED: NEOSTIGMINE 10 MG/10 ML VIAL ONE (12:33)
[2019-11-27] MEDS ORDERED: fentaNYL 100 MCG/2 ML VIAL ONE ×2 (12:33→13:31)
[2019-11-27] MEDS ORDERED: SUCCINYLCHOLINE 200 MG/10 ML VIAL ONE (12:33)
[2019-11-27] MEDS ORDERED: DEXAMETHASONE 4 MG/1 ML VIAL ONE (12:33)
[2019-11-28] MEDS: ALBUTEROL/IPRATROPIUM 3 ML NEB RESP TX SCH ×2 (00:21→07:53)
[2019-11-28] MEDS: POTASSIUM CHLORIDE INJ 10 MEQ in LACTATED RINGERS 1,000 ML IV SCH ×3 (02:39→02:42)
[2019-11-28 05:35] LABS: Basophils % 0.1 % (0.0-0.8); Hemoglobin 12.8 GM/DL (14.0-18.0); Immature Granulocytes % 0.4 %; Immature Granulocytes Absolute 0.04 #; Lymphocytes # 1.5 10*3/uL (1.4-4.0); Mean Corpuscular HGB Conc 33.7 GM/DL (32-36); Mean Corpuscular Volume 95.7 FL (87-102); Mean Platelet Volume 9.8 FL (9.6-12.0); Monocytes % 6.2 % (1.7-12.7); Neutrophils % 79.3 % (38.7-73.9); Platelet Count 332 T/CUMM (130-400); Red Blood Count 3.97 MC/CUMM (3.8-5.5); White Blood Count 10.3 T/CUMM (4-12)
[2019-11-28 05:57] LABS: Albumin 2.9 G/DL (3.4-5.0); Bilirubin,Total 0.9 MG/DL (0.2-1.0); Calcium 9.4 MG/DL (8.5-10.1); Osmolality,Calculated 271.4 MOS/KG (273-304)
[2019-11-28 07:11] VITALS: BP 153/107
[2019-11-28] MEDS: amLODIPine 10 MG TABLET PO SCH ×2 (07:43→08:16)
[2019-11-28] MEDS: carvediloL 6.25 MG TABLET PO SCH (07:43)
[2019-11-28] MEDS: PANTOPRAZOLE 40 MG TABLET PO SCH (09:13)
[2019-11-28] MEDS: MULTIVITAMIN (CENTRUM) TABLET PO SCH (09:13)
[2019-11-28] MEDS: THIAMINE 100 MG TABLET PO SCH (09:13)
[2019-11-28] MEDS: ursodioL 300 MG CAPSULE PO SCH (09:13)
[2019-11-28] MEDS: FOLIC ACID 1 MG TABLET PO SCH (09:13)
== END 2019-11-28 10:41 | disposition home or self-care (01) | DRG 438 ==
LOC: N.ED 15:20 → SUATTDRO 19:44 → N.EDINP 19:44 → N.3E 21:13 → N.4E 11-27 10:09
PROVIDERS: ADMIT Internal Medicine; ATTEND Internal Medicine

== ENCOUNTER 2019-12-03 17:33 | Inpatient (IN) ==
[2019-12-03] MEDS ORDERED: MORPHINE 4 MG/1 ML VIAL IV STA ×2 (18:27→19:12)
[2019-12-03] MEDS ORDERED: ONDANSETRON 4 MG/2 ML VIAL IV STA (18:27)
[2019-12-03] MEDS ORDERED: SODIUM CHLORIDE 0.9% 1,000 ML IV STA (18:28)
[2019-12-03] MEDS ORDERED: MORPHINE 4 MG/1 ML VIAL ONE (18:29)
[2019-12-03 18:37] LABS: Basophils % 0.5 % (0.0-0.8); Eosinophils # 0.3 10*3/uL (0.0-0.87); Eosinophils % 3.3 % (0.00-10.9); Hematocrit 40.5 VOL% (42.0-52.0); Hemoglobin 13.6 GM/DL (14.0-18.0); Immature Granulocytes % 0.2 %; Immature Granulocytes Absolute 0.02 #; Lymphocytes # 2.3 10*3/uL (1.4-4.0); Lymphocytes % 25.9 % (21.2-54.2); Mean Corpuscular HGB Conc 33.6 GM/DL (32-36); Mean Corpuscular Volume 94.6 FL (87-102); Mean Platelet Volume 9.2 FL (9.6-12.0); Monocytes % 8.5 % (1.7-12.7); Neutrophils % 61.6 % (38.7-73.9); Platelet Count 362 T/CUMM (130-400); Red Blood Count 4.28 MC/CUMM (3.8-5.5); Red Cell Distribution Width 12.9 % (9.3-17.3); White Blood Count 8.8 T/CUMM (4-12)
[2019-12-03 18:50] LABS: Albumin 3.7 G/DL (3.4-5.0); Bilirubin,Total 0.5 MG/DL (0.2-1.0); Calcium 9.9 MG/DL (8.5-10.1); Osmolality,Calculated 265.4 MOS/KG (273-304); Total Protein 8.3 G/DL (6.4-8.3)
[2019-12-03] MEDS ORDERED: DEXTROSE 10% 250 ML BAG IV PRN (19:34)
[2019-12-03] MEDS ORDERED: GLUCAGON 1 MG VIAL IM PRN (19:34)
[2019-12-03] MEDS ORDERED: NICOTINE 21 MG/24 HR PATCH TRANSDERM PRN (19:48)
[2019-12-03] MEDS ORDERED: ALBUTEROL/IPRATROPIUM 3 ML NEB RESP TX SCH (20:30)
[2019-12-03] MEDS: MORPHINE 4 MG/1 ML VIAL IV PRN (20:53)
[2019-12-03] MEDS: DEXTROSE 5% NACL 0.9% 1,000 ML IV SCH (22:29)
[2019-12-03] MEDS: ENOXAPARIN 40 MG/0.4 ML SYRINGE SUBCUT SCH (22:29)
[2019-12-04] MEDS: MORPHINE 4 MG/1 ML VIAL IV PRN ×4 (01:27→17:22)
[2019-12-04] MEDS: diphenhydrAMINE 50 MG/1 ML VIAL IV PRN (01:27)
[2019-12-04] MEDS: ALBUTEROL/IPRATROPIUM 3 ML NEB RESP TX SCH ×4 (01:28→19:00)
[2019-12-04 05:09] LABS: Basophils % 0.4 % (0.0-0.8); Eosinophils # 0.3 10*3/uL (0.0-0.87); Eosinophils % 4.3 % (0.00-10.9); Hematocrit 39.9 VOL% (42.0-52.0); Hemoglobin 13.4 GM/DL (14.0-18.0); Immature Granulocytes % 0.3 %; Immature Granulocytes Absolute 0.02 #; Lymphocytes # 2.2 10*3/uL (1.4-4.0); Lymphocytes % 31.6 % (21.2-54.2); Mean Corpuscular HGB Conc 33.6 GM/DL (32-36); Mean Platelet Volume 9.5 FL (9.6-12.0); Monocytes % 8.1 % (1.7-12.7); Neutrophils % 55.3 % (38.7-73.9); Platelet Count 321 T/CUMM (130-400); Red Cell Distribution Width 13.1 % (9.3-17.3)
[2019-12-04 05:22] LABS: Calcium 8.6 MG/DL (8.5-10.1); Osmolality,Calculated 266.2 MOS/KG (273-304)
[2019-12-04] MEDS: DEXTROSE 5% NACL 0.9% 1,000 ML IV SCH ×2 (05:53→14:06)
[2019-12-04] MEDS: carvediloL 6.25 MG TABLET PO SCH ×2 (08:47→21:12)
[2019-12-04] MEDS: amLODIPine 10 MG TABLET PO SCH (08:47)
[2019-12-04] MEDS: PANTOPRAZOLE 40 MG VIAL IV SCH (08:47)
[2019-12-04] MEDS: MULTIVITAMIN (CENTRUM) TABLET PO SCH (10:30)
[2019-12-04] MEDS: FOLIC ACID 1 MG TABLET PO SCH (10:31)
[2019-12-04] MEDS: ursodioL 300 MG CAPSULE PO SCH ×2 (10:31→21:12)
[2019-12-04] MEDS: THIAMINE 100 MG TABLET PO SCH (10:31)
[2019-12-04] MEDS: ENOXAPARIN 40 MG/0.4 ML SYRINGE SUBCUT SCH (21:12)
[2019-12-05] MEDS: MORPHINE 4 MG/1 ML VIAL IV PRN ×2 (00:30→04:25)
[2019-12-05] MEDS: DEXTROSE 5% NACL 0.9% 1,000 ML IV SCH ×2 (00:32→04:24)
[2019-12-05] MEDS: diphenhydrAMINE 50 MG/1 ML VIAL IV PRN (00:33)
[2019-12-05] MEDS: ALBUTEROL/IPRATROPIUM 3 ML NEB RESP TX SCH ×3 (01:16→13:23)
[2019-12-05 05:32] LABS: Basophils % 0.7 % (0.0-0.8); Eosinophils # 0.3 10*3/uL (0.0-0.87); Eosinophils % 5.2 % (0.00-10.9); Hematocrit 35.4 VOL% (42.0-52.0); Immature Granulocytes % 0.2 %; Immature Granulocytes Absolute 0.01 #; Lymphocytes # 1.9 10*3/uL (1.4-4.0); Lymphocytes % 35.6 % (21.2-54.2); Mean Corpuscular HGB Conc 33.9 GM/DL (32-36); Mean Corpuscular Volume 94.7 FL (87-102); Mean Platelet Volume 9.2 FL (9.6-12.0); Monocytes % 9.2 % (1.7-12.7); Neutrophils % 49.1 % (38.7-73.9); Platelet Count 280 T/CUMM (130-400); Red Blood Count 3.74 MC/CUMM (3.8-5.5); Red Cell Distribution Width 13.1 % (9.3-17.3); White Blood Count 5.4 T/CUMM (4-12)
[2019-12-05 05:54] LABS: Calcium 8.4 MG/DL (8.5-10.1); Osmolality,Calculated 274.5 MOS/KG (273-304)
[2019-12-05 06:12] LABS: Eosinophils 10 % (0-10); Hypochromasia 1+; Lymphocytes 35 % (20-55); Platelet Estimate Adequate; Segmented Neutrophils 50 % (50-85); Total Cells Counted 100
[2019-12-05] MEDS: PANTOPRAZOLE 40 MG VIAL IV SCH (08:29)
[2019-12-05] MEDS: ursodioL 300 MG CAPSULE PO SCH (08:30)
[2019-12-05] MEDS: carvediloL 6.25 MG TABLET PO SCH (08:31)
[2019-12-05] MEDS: THIAMINE 100 MG TABLET PO SCH (08:31)
[2019-12-05] MEDS: MULTIVITAMIN (CENTRUM) TABLET PO SCH (08:31)
[2019-12-05] MEDS: amLODIPine 10 MG TABLET PO SCH (08:31)
[2019-12-05] MEDS: FOLIC ACID 1 MG TABLET PO SCH (08:31)
[2019-12-05 11:34] VITALS: BP 127/83
== END 2019-12-05 14:19 | disposition home or self-care (01) | DRG 440 ==
LOC: N.ED 17:33 → N.EDINP 19:34 → N.3E 20:56
PROVIDERS: ADMIT Internal Medicine; ATTEND Internal Medicine

== ENCOUNTER 2019-12-08 10:57 | Inpatient (IN) ==
[2019-12-08 12:28] LABS: Basophils # 0.1 10*3/uL (0.0-0.2); Basophils % 0.8 % (0.0-0.8); Eosinophils # 0.3 10*3/uL (0.0-0.87); Eosinophils % 3.7 % (0.00-10.9); Hematocrit 41.5 VOL% (42.0-52.0); Hemoglobin 14.2 GM/DL (14.0-18.0); Immature Granulocytes % 0.2 %; Immature Granulocytes Absolute 0.02 #; Lymphocytes # 2.3 10*3/uL (1.4-4.0); Mean Corpuscular HGB Conc 34.2 GM/DL (32-36); Mean Platelet Volume 9.5 FL (9.6-12.0); Monocytes % 6.6 % (1.7-12.7); Neutrophils % 62.7 % (38.7-73.9); Platelet Count 329 T/CUMM (130-400); Red Blood Count 4.46 MC/CUMM (3.8-5.5)
[2019-12-08] MEDS ORDERED: MORPHINE 4 MG/1 ML VIAL ONE (12:30)
[2019-12-08] MEDS ORDERED: ONDANSETRON 4 MG/2 ML VIAL ONE (12:30)
[2019-12-08 12:32] LABS: Apearance,Urine CLEAR (Clear); Bilirubin,Urine Negative (Negative); Blood, Urine Negative (Negative); Glucose,Urine (UA) Negative (Negative); Ketones,Urine Negative (Negative); Mucus,Urine Few /LPF (Occasional); Nitrite,Urine Negative (Negative); Protein,Urine Negative; Urine Color Yellow (Yellow); Urine Urobilinogen < 2.0 EU/DL (0.2-1.0)
[2019-12-08] MEDS ORDERED: ONDANSETRON 4 MG/2 ML VIAL IV STA (12:36)
[2019-12-08] MEDS ORDERED: MORPHINE 4 MG/1 ML VIAL IV STA ×2 (12:36→13:45)
[2019-12-08] MEDS ORDERED: SODIUM CHLORIDE 0.9% 1,000 ML IV STA ×2 (12:36→14:09)
[2019-12-08 12:41] LABS: Barbiturates Screen,Urine Negative (Negative); Benzodiazepines Screen,Urine Negative (Negative); Cannabinoid Screen,Urine Negative (Negative); Opiate Screen,Urine Negative (Negative); Phencyclidine Screen,Urine Negative (Negative)
[2019-12-08 13:08] LABS: Albumin 3.8 G/DL (3.4-5.0); Bilirubin,Total 0.6 MG/DL (0.2-1.0); Osmolality,Calculated 268.1 MOS/KG (273-304); Total Protein 8.4 G/DL (6.4-8.3)
[2019-12-08] MEDS ORDERED: PROMETHAZINE INJ 25 MG in SODIUM CHLORIDE 0.9% 50 ML IV STA (13:45)
[2019-12-08] MEDS ORDERED: PROMETHAZINE 25 MG/1 ML VIAL ONE (13:46)
[2019-12-08] MEDS ORDERED: DEXTROSE 50% 25 GM/50 ML VIAL IV PRN (14:22)
[2019-12-08] MEDS ORDERED: GLUCAGON 1 MG VIAL IM PRN (14:22)
[2019-12-08] MEDS ORDERED: hydrALAZINE 20 MG/1 ML VIAL IV PRN (14:22)
[2019-12-08] MEDS ORDERED: HYDROmorphone 2 MG/1 ML VIAL IV PRN (14:26)
[2019-12-08] MEDS ORDERED: LORazepam 2 MG/1 ML VIAL IV PRN (14:44)
[2019-12-08 14:53] LABS: Risk Ratio 4.46; Thyroid Stimulating Hormone 1.71 uIU/ml (0.358-3.74)
[2019-12-08] MEDS ORDERED: SODIUM CHLORIDE 0.9% 1,000 ML IV ONE (15:59)
[2019-12-08] MEDS: ENOXAPARIN 40 MG/0.4 ML SYRINGE SUBCUT SCH (17:21)
[2019-12-08] MEDS: NICOTINE 21 MG/24 HR PATCH TRANSDERM SCH (17:22)
[2019-12-08] MEDS: PANTOPRAZOLE 40 MG VIAL IV SCH (17:22)
[2019-12-08] MEDS: SODIUM CHLORIDE 0.9% 1,000 ML IV SCH (17:31)
[2019-12-08] MEDS: carvediloL 6.25 MG TABLET PO SCH (20:59)
[2019-12-08] MEDS: ursodioL 300 MG CAPSULE PO SCH (20:59)
[2019-12-08] MEDS: MORPHINE 4 MG/1 ML VIAL IV PRN (20:59)
[2019-12-08] MEDS: ONDANSETRON 4 MG/2 ML VIAL IV PRN (21:00)
[2019-12-09] MEDS: SODIUM CHLORIDE 0.9% 1,000 ML IV SCH ×3 (01:23→17:58)
[2019-12-09] MEDS: MORPHINE 4 MG/1 ML VIAL IV PRN ×2 (01:24→08:52)
[2019-12-09] MEDS: ONDANSETRON 4 MG/2 ML VIAL IV PRN ×3 (01:25→18:11)
[2019-12-09 06:48] LABS: Basophils # 0.1 10*3/uL (0.0-0.2); Basophils % 0.8 % (0.0-0.8); Eosinophils # 0.3 10*3/uL (0.0-0.87); Hematocrit 39.2 VOL% (42.0-52.0); Hemoglobin 13.4 GM/DL (14.0-18.0); Immature Granulocytes % 0.3 %; Immature Granulocytes Absolute 0.02 #; Lymphocytes % 27.2 % (21.2-54.2); Mean Corpuscular HGB Conc 34.2 GM/DL (32-36); Mean Corpuscular Volume 93.1 FL (87-102); Mean Platelet Volume 9.8 FL (9.6-12.0); Monocytes % 7.9 % (1.7-12.7); Neutrophils % 59.8 % (38.7-73.9); Platelet Count 323 T/CUMM (130-400); Red Blood Count 4.21 MC/CUMM (3.8-5.5); Red Cell Distribution Width 13.1 % (9.3-17.3); White Blood Count 7.2 T/CUMM (4-12)
[2019-12-09 07:10] LABS: Calcium 8.7 MG/DL (8.5-10.1); Osmolality,Calculated 269.8 MOS/KG (273-304)
[2019-12-09] MEDS: carvediloL 6.25 MG TABLET PO SCH ×2 (08:49→21:07)
[2019-12-09] MEDS: ursodioL 300 MG CAPSULE PO SCH ×2 (08:49→21:07)
[2019-12-09] MEDS: amLODIPine 10 MG TABLET PO SCH (08:49)
[2019-12-09] MEDS: PANTOPRAZOLE 40 MG VIAL IV SCH (08:55)
[2019-12-09] MEDS: NICOTINE 21 MG/24 HR PATCH TRANSDERM SCH (09:01)
[2019-12-09] MEDS: DOCUSATE SODIUM 100 MG CAPSULE PO PRN (09:06)
[2019-12-09] MEDS: DICYCLOMINE 20 MG TABLET PO SCH ×3 (09:06→21:07)
[2019-12-09 12:26] LABS: Albumin 3.1 G/DL (3.4-5.0); Bilirubin,Direct 0.14 MG/DL (0.0-0.20); Bilirubin,Indirect 0.4 MG/DL (0.0-1.0); Bilirubin,Total 0.5 MG/DL (0.2-1.0)
[2019-12-09] MEDS: HYDROmorphone 2 MG/1 ML VIAL IV PRN ×3 (13:48→22:36)
[2019-12-09] MEDS: ENOXAPARIN 40 MG/0.4 ML SYRINGE SUBCUT SCH (13:50)
[2019-12-09] MEDS: diphenhydrAMINE 50 MG/1 ML VIAL IV PRN (23:35)
[2019-12-10] MEDS: HYDROmorphone 2 MG/1 ML VIAL IV PRN ×5 (02:17→22:46)
[2019-12-10] MEDS: ONDANSETRON 4 MG/2 ML VIAL IV PRN ×2 (02:17→10:23)
[2019-12-10] MEDS: SODIUM CHLORIDE 0.9% 1,000 ML IV SCH ×4 (02:18→19:31)
[2019-12-10] MEDS: DICYCLOMINE 20 MG TABLET PO SCH ×4 (02:18→22:46)
[2019-12-10 06:29] LABS: Calcium 8.5 MG/DL (8.5-10.1); Osmolality,Calculated 271.7 MOS/KG (273-304)
[2019-12-10 06:33] LABS: Basophils # 0.1 10*3/uL (0.0-0.2); Basophils % 1.1 % (0.0-0.8); Eosinophils # 0.5 10*3/uL (0.0-0.87); Immature Granulocytes % 0.1 %; Immature Granulocytes Absolute 0.01 #; Lymphocytes # 2.2 10*3/uL (1.4-4.0); Lymphocytes % 30.2 % (21.2-54.2); Mean Corpuscular HGB Conc 32.9 GM/DL (32-36); Mean Corpuscular Volume 96.6 FL (87-102); Mean Platelet Volume 9.9 FL (9.6-12.0); Monocytes % 8.8 % (1.7-12.7); Neutrophils % 52.8 % (38.7-73.9); Platelet Count 283 T/CUMM (130-400); Red Blood Count 3.52 MC/CUMM (3.8-5.5); Red Cell Distribution Width 13.1 % (9.3-17.3); White Blood Count 7.4 T/CUMM (4-12)
[2019-12-10 06:35] LABS: Hemoglobin 11.2 GM/DL (14.0-18.0)
[2019-12-10] MEDS: diphenhydrAMINE 50 MG/1 ML VIAL IV PRN ×2 (06:54→17:42)
[2019-12-10] MEDS: ursodioL 300 MG CAPSULE PO SCH ×2 (09:12→22:46)
[2019-12-10] MEDS: amLODIPine 10 MG TABLET PO SCH (09:12)
[2019-12-10] MEDS: PANTOPRAZOLE 40 MG VIAL IV SCH (09:13)
[2019-12-10] MEDS: carvediloL 6.25 MG TABLET PO SCH ×2 (09:13→22:46)
[2019-12-10] MEDS: DOCUSATE SODIUM 100 MG CAPSULE PO PRN (09:13)
[2019-12-10] MEDS: NICOTINE 21 MG/24 HR PATCH TRANSDERM SCH (09:21)
[2019-12-10] MEDS: hydrOXYzine HCL 25 MG TABLET PO PRN ×2 (10:23→22:46)
[2019-12-10] MEDS: ENOXAPARIN 40 MG/0.4 ML SYRINGE SUBCUT SCH (13:43)
[2019-12-11] MEDS: SODIUM CHLORIDE 0.9% 1,000 ML IV SCH ×3 (02:05→15:11)
[2019-12-11] MEDS: DICYCLOMINE 20 MG TABLET PO SCH ×4 (04:12→21:56)
[2019-12-11] MEDS: diphenhydrAMINE 50 MG/1 ML VIAL IV PRN ×2 (04:14→14:03)
[2019-12-11] MEDS: HYDROmorphone 2 MG/1 ML VIAL IV PRN ×4 (04:18→23:00)
[2019-12-11 06:01] LABS: Basophils # 0.1 10*3/uL (0.0-0.2); Eosinophils # 0.2 10*3/uL (0.0-0.87); Eosinophils % 3.3 % (0.00-10.9); Hematocrit 34.4 VOL% (42.0-52.0); Hemoglobin 11.6 GM/DL (14.0-18.0); Immature Granulocytes % 0.5 %; Immature Granulocytes Absolute 0.03 #; Lymphocytes # 1.3 10*3/uL (1.4-4.0); Lymphocytes % 21.1 % (21.2-54.2); Mean Corpuscular HGB Conc 33.7 GM/DL (32-36); Mean Corpuscular Volume 95.3 FL (87-102); Mean Platelet Volume 9.5 FL (9.6-12.0); Neutrophils % 64.1 % (38.7-73.9); Platelet Count 270 T/CUMM (130-400); Red Blood Count 3.61 MC/CUMM (3.8-5.5); Red Cell Distribution Width 12.9 % (9.3-17.3)
[2019-12-11 06:21] LABS: Anisocytosis 1+; Platelet Estimate Normal
[2019-12-11 06:31] LABS: Calcium 8.6 MG/DL (8.5-10.1); Osmolality,Calculated 270.7 MOS/KG (273-304)
[2019-12-11 06:40] LABS: Lymphocytes 20 % (20-55); Segmented Neutrophils 73 % (50-85); Total Cells Counted 100
[2019-12-11] MEDS: carvediloL 6.25 MG TABLET PO SCH ×2 (08:35→21:56)
[2019-12-11] MEDS: hydrOXYzine HCL 25 MG TABLET PO PRN (08:35)
[2019-12-11] MEDS: amLODIPine 10 MG TABLET PO SCH (08:36)
[2019-12-11] MEDS: ursodioL 300 MG CAPSULE PO SCH ×2 (08:36→21:56)
[2019-12-11] MEDS: DOCUSATE SODIUM 100 MG CAPSULE PO PRN (08:36)
[2019-12-11] MEDS: PANTOPRAZOLE 40 MG VIAL IV SCH (08:39)
[2019-12-11] MEDS: NICOTINE 21 MG/24 HR PATCH TRANSDERM SCH (09:38)
[2019-12-11] MEDS: ENOXAPARIN 40 MG/0.4 ML SYRINGE SUBCUT SCH (13:55)
[2019-12-11] MEDS ORDERED: LIPASE/PROTEASE/AMYLASE 4,200 UNITS CAPSULE PO SCH (17:00)
[2019-12-12] MEDS: DICYCLOMINE 20 MG TABLET PO SCH ×2 (02:20→09:40)
[2019-12-12] MEDS: HYDROmorphone 2 MG/1 ML VIAL IV PRN ×3 (02:22→09:46)
[2019-12-12] MEDS: diphenhydrAMINE 50 MG/1 ML VIAL IV PRN (02:26)
[2019-12-12] MEDS: SODIUM CHLORIDE 0.9% 1,000 ML IV SCH ×2 (02:54→09:49)
[2019-12-12 07:46] VITALS: BP 113/68
[2019-12-12] MEDS ORDERED: LIPASE/PROTEASE/AMYLASE 4,200 UNITS CAPSULE PO SCH (08:00)
[2019-12-12] MEDS: amLODIPine 10 MG TABLET PO SCH (09:40)
[2019-12-12] MEDS: DOCUSATE SODIUM 100 MG CAPSULE PO PRN (09:40)
[2019-12-12] MEDS: carvediloL 6.25 MG TABLET PO SCH (09:40)
[2019-12-12] MEDS: ursodioL 300 MG CAPSULE PO SCH (09:40)
[2019-12-12] MEDS: NICOTINE 21 MG/24 HR PATCH TRANSDERM SCH (09:41)
[2019-12-12] MEDS: PANTOPRAZOLE 40 MG VIAL IV SCH (09:41)
== END 2019-12-12 12:30 | disposition home or self-care (01) | DRG 439 ==
LOC: N.ED 10:57 → N.EDINP 10:57 → SUATTDRO 14:21 → N.TELES 16:00
PROVIDERS: ADMIT Internal Medicine; ATTEND Family Medicine

== ENCOUNTER 2019-12-30 16:01 | Observation (INO) ==
[2019-12-30] MEDS ORDERED: SODIUM CHLORIDE 0.9% 1,000 ML IV STA (16:55)
[2019-12-30 17:27] LABS: Apearance,Urine CLEAR (Clear); Bilirubin,Urine Negative (Negative); Blood, Urine Negative (Negative); Glucose,Urine (UA) Negative (Negative); Hyaline Casts,Urine 9 /LPF (0-3); Ketones,Urine 20 mg/dL (Negative); Mucus,Urine Many /LPF (Occasional); Nitrite,Urine Negative (Negative); Protein,Urine 30 MG/DL; RBC,Urine 3 /HPF (0-4); Squamous Epithelial Cell,Urine Occasional /HPF (0-10); Urine Color Yellow (Yellow); Urine Specific Gravity 1.019 (1.001-1.035); WBC,Urine 1 /HPF (0-6)
[2019-12-30 17:31] LABS: Basophils # 0.1 10*3/uL (0.0-0.2); Basophils % 0.5 % (0.0-0.8); Eosinophils # 0.1 10*3/uL (0.0-0.87); Eosinophils % 0.7 % (0.00-10.9); Hematocrit 44.7 VOL% (42.0-52.0); Hemoglobin 14.9 GM/DL (14.0-18.0); Immature Granulocytes % 0.4 %; Immature Granulocytes Absolute 0.04 #; Lymphocytes # 1.5 10*3/uL (1.4-4.0); Lymphocytes % 13.8 % (21.2-54.2); Mean Corpuscular HGB Conc 33.3 GM/DL (32-36); Mean Corpuscular Volume 93.7 FL (87-102); Mean Platelet Volume 9.2 FL (9.6-12.0); Monocytes % 5.7 % (1.7-12.7); NRBC # 0.02 10*3/uL; Neutrophils % 78.9 % (38.7-73.9); Platelet Count 346 T/CUMM (130-400); Red Blood Count 4.77 MC/CUMM (3.8-5.5); Red Cell Distribution Width 13.3 % (9.3-17.3); White Blood Count 10.7 T/CUMM (4-12)
[2019-12-30 17:32] LABS: Barbiturates Screen,Urine Negative (Negative); Benzodiazepines Screen,Urine Negative (Negative); Cannabinoid Screen,Urine Negative (Negative); Opiate Screen,Urine Negative (Negative); Phencyclidine Screen,Urine Negative (Negative)
[2019-12-30 17:48] LABS: Albumin 3.8 G/DL (3.4-5.0); Bilirubin,Total 0.8 MG/DL (0.2-1.0); Calcium 9.5 MG/DL (8.5-10.1); Osmolality,Calculated 271.8 MOS/KG (273-304)
[2019-12-30] MEDS ORDERED: HYDROmorphone 2 MG/1 ML VIAL IV STA (18:04)
[2019-12-30] MEDS ORDERED: ONDANSETRON 4 MG/2 ML VIAL IV ONE (18:04)
[2019-12-30 18:28] LABS: Eosinophils 1 % (0-10); Hypochromasia 2+; Lymphocytes 16 % (20-55); Macrocytosis Slight; Segmented Neutrophils 77 % (50-85); Stomatocytes 1+; Total Cells Counted 100
[2019-12-30 18:31] LABS: Toxic Granulation 1+
[2019-12-30 18:32] LABS: Platelet Estimate Normal
[2019-12-30] MEDS ORDERED: HYDROmorphone 2 MG/1 ML VIAL IV PRN (19:16)
[2019-12-30] MEDS ORDERED: ONDANSETRON 4 MG/2 ML VIAL IV PRN (19:16)
[2019-12-30] MEDS ORDERED: SODIUM CHLORIDE 0.9% 1,000 ML IV SCH (19:30)
[2019-12-30] MEDS: SODIUM CHLORIDE 0.9% 1,000 ML IV SCH (21:45)
[2019-12-30] MEDS: ursodioL 300 MG CAPSULE PO SCH (22:25)
[2019-12-30] MEDS: carvediloL 6.25 MG TABLET PO SCH (22:26)
[2019-12-30] MEDS: FAMOTIDINE 20 MG/2 ML VIAL IV SCH (22:37)
[2019-12-31] MEDS: diphenhydrAMINE 50 MG/1 ML VIAL IV PRN ×3 (01:48→23:22)
[2019-12-31] MEDS ORDERED: MORPHINE 4 MG/1 ML VIAL IV PRN ×2 (04:45→04:46)
[2019-12-31 05:14] LABS: Basophils % 0.3 % (0.0-0.8); Eosinophils # 0.1 10*3/uL (0.0-0.87); Eosinophils % 0.8 % (0.00-10.9); Hematocrit 38.8 VOL% (42.0-52.0); Immature Granulocytes % 0.3 %; Immature Granulocytes Absolute 0.03 #; Lymphocytes # 1.2 10*3/uL (1.4-4.0); Lymphocytes % 12.5 % (21.2-54.2); Mean Corpuscular HGB Conc 33.5 GM/DL (32-36); Mean Corpuscular Volume 92.8 FL (87-102); Mean Platelet Volume 9.2 FL (9.6-12.0); Monocytes % 7.9 % (1.7-12.7); Neutrophils % 78.2 % (38.7-73.9); Platelet Count 314 T/CUMM (130-400); Red Blood Count 4.18 MC/CUMM (3.8-5.5); Red Cell Distribution Width 13.2 % (9.3-17.3); White Blood Count 9.9 T/CUMM (4-12)
[2019-12-31 05:37] LABS: Bilirubin,Total 0.8 MG/DL (0.2-1.0); Calcium 8.9 MG/DL (8.5-10.1)
[2019-12-31] MEDS: SODIUM CHLORIDE 0.9% 1,000 ML IV SCH ×2 (06:32→13:52)
[2019-12-31] MEDS: FAMOTIDINE 20 MG/2 ML VIAL IV SCH ×2 (09:42→21:43)
[2019-12-31] MEDS: PANTOPRAZOLE 40 MG VIAL IV SCH (09:43)
[2019-12-31] MEDS: LIPASE/PROTEASE/AMYLASE 4,200 UNITS CAPSULE PO SCH ×3 (10:12→17:09)
[2019-12-31] MEDS: carvediloL 6.25 MG TABLET PO SCH ×2 (10:12→17:08)
[2019-12-31] MEDS: amLODIPine 10 MG TABLET PO SCH (10:13)
[2019-12-31] MEDS: ursodioL 300 MG CAPSULE PO SCH ×2 (10:13→21:43)
[2019-12-31] MEDS: FOLIC ACID 1 MG TABLET PO SCH (10:13)
[2019-12-31] MEDS: PIPERACILLIN/TAZOBACTAM 3,375 MG in SODIUM CHLORIDE 0.9% 100 ML IV SCH ×2 (14:08→23:39)
[2019-12-31] MEDS: NICOTINE 21 MG/24 HR PATCH TRANSDERM SCH (17:08)
[2019-12-31] MEDS: ALBUTEROL/IPRATROPIUM 3 ML NEB RESP TX SCH (19:40)
[2019-12-31] MEDS: MORPHINE 4 MG/1 ML VIAL IV PRN (23:23)
[2020-01-01] MEDS: ALBUTEROL/IPRATROPIUM 3 ML NEB RESP TX SCH ×4 (00:08→19:44)
[2020-01-01] MEDS: PIPERACILLIN/TAZOBACTAM 3,375 MG in SODIUM CHLORIDE 0.9% 100 ML IV SCH ×3 (05:49→22:50)
[2020-01-01 05:52] LABS: Basophils % 0.3 % (0.0-0.8); Eosinophils # 0.2 10*3/uL (0.0-0.87); Hemoglobin 12.4 GM/DL (14.0-18.0); Immature Granulocytes % 0.3 %; Immature Granulocytes Absolute 0.02 #; Lymphocytes # 2.2 10*3/uL (1.4-4.0); Lymphocytes % 29.4 % (21.2-54.2); Mean Corpuscular HGB Conc 33.5 GM/DL (32-36); Mean Platelet Volume 9.8 FL (9.6-12.0); Monocytes % 8.6 % (1.7-12.7); Neutrophils % 58.4 % (38.7-73.9); Platelet Count 275 T/CUMM (130-400); Red Blood Count 3.98 MC/CUMM (3.8-5.5); Red Cell Distribution Width 13.2 % (9.3-17.3); White Blood Count 7.3 T/CUMM (4-12)
[2020-01-01 06:34] LABS: Albumin 2.7 G/DL (3.4-5.0); Bilirubin,Total 0.5 MG/DL (0.2-1.0); Calcium 8.7 MG/DL (8.5-10.1); Osmolality,Calculated 269.8 MOS/KG (273-304); Total Protein 6.6 G/DL (6.4-8.3)
[2020-01-01] MEDS: carvediloL 6.25 MG TABLET PO SCH ×2 (08:09→16:53)
[2020-01-01] MEDS: LIPASE/PROTEASE/AMYLASE 4,200 UNITS CAPSULE PO SCH ×3 (08:10→16:55)
[2020-01-01] MEDS: ursodioL 300 MG CAPSULE PO SCH ×2 (09:19→21:36)
[2020-01-01] MEDS: FOLIC ACID 1 MG TABLET PO SCH (09:19)
[2020-01-01] MEDS: amLODIPine 10 MG TABLET PO SCH (09:20)
[2020-01-01] MEDS: PANTOPRAZOLE 40 MG VIAL IV SCH (11:53)
[2020-01-01] MEDS: NICOTINE 21 MG/24 HR PATCH TRANSDERM SCH (11:54)
[2020-01-01] MEDS: FAMOTIDINE 20 MG/2 ML VIAL IV SCH ×2 (11:54→21:30)
[2020-01-01] MEDS: SODIUM CHLORIDE 0.9% 1,000 ML IV SCH ×2 (11:57→21:14)
[2020-01-01] MEDS: MORPHINE 4 MG/1 ML VIAL IV PRN ×3 (12:21→21:31)
[2020-01-01] MEDS: diphenhydrAMINE 50 MG/1 ML VIAL IV PRN ×3 (12:21→22:52)
[2020-01-01] MEDS ORDERED: ONDANSETRON 4 MG/2 ML VIAL IV ONE (14:25)
[2020-01-01] MEDS ORDERED: MIDAZOLAM 2 MG/2 ML VIAL IV ONE (14:25)
[2020-01-01] MEDS ORDERED: fentaNYL 100 MCG/2 ML VIAL IV ONE (14:25)
[2020-01-01] MEDS ORDERED: fentaNYL 100 MCG/2 ML VIAL ONE (15:07)
[2020-01-01] MEDS ORDERED: MIDAZOLAM 2 MG/2 ML VIAL ONE (15:08)
[2020-01-01] MEDS ORDERED: ONDANSETRON 4 MG/2 ML VIAL ONE (15:08)
[2020-01-02] MEDS: MORPHINE 4 MG/1 ML VIAL IV PRN ×3 (01:56→09:40)
[2020-01-02] MEDS: ALBUTEROL/IPRATROPIUM 3 ML NEB RESP TX SCH ×2 (03:01→07:35)
[2020-01-02] MEDS: SODIUM CHLORIDE 0.9% 1,000 ML IV SCH ×3 (03:17→09:32)
[2020-01-02] MEDS: PIPERACILLIN/TAZOBACTAM 3,375 MG in SODIUM CHLORIDE 0.9% 100 ML IV SCH (05:21)
[2020-01-02 06:17] LABS: Basophils % 0.3 % (0.0-0.8); Eosinophils # 0.1 10*3/uL (0.0-0.87); Eosinophils % 1.1 % (0.00-10.9); Hematocrit 35.7 VOL% (42.0-52.0); Hemoglobin 11.7 GM/DL (14.0-18.0); Immature Granulocytes % 0.6 %; Immature Granulocytes Absolute 0.07 #; Lymphocytes # 1.8 10*3/uL (1.4-4.0); Lymphocytes % 16.7 % (21.2-54.2); Mean Corpuscular HGB Conc 32.8 GM/DL (32-36); Mean Corpuscular Volume 94.9 FL (87-102); Mean Platelet Volume 9.4 FL (9.6-12.0); Monocytes % 4.5 % (1.7-12.7); Neutrophils % 76.8 % (38.7-73.9); Platelet Count 307 T/CUMM (130-400); Red Blood Count 3.76 MC/CUMM (3.8-5.5); Red Cell Distribution Width 13.4 % (9.3-17.3); White Blood Count 10.9 T/CUMM (4-12)
[2020-01-02 06:54] LABS: Albumin 2.8 G/DL (3.4-5.0); Bilirubin,Total 1.1 MG/DL (0.2-1.0); Calcium 8.7 MG/DL (8.5-10.1); Osmolality,Calculated 266.1 MOS/KG (273-304)
[2020-01-02] MEDS ORDERED: POTASSIUM CHLORIDE 20 MEQ TABLET PO ONE (07:46)
[2020-01-02 08:45] VITALS: BP 130/89
[2020-01-02] MEDS: ursodioL 300 MG CAPSULE PO SCH (09:34)
[2020-01-02] MEDS: LIPASE/PROTEASE/AMYLASE 4,200 UNITS CAPSULE PO SCH (09:34)
[2020-01-02] MEDS: NICOTINE 21 MG/24 HR PATCH TRANSDERM SCH (09:34)
[2020-01-02] MEDS: FAMOTIDINE 20 MG/2 ML VIAL IV SCH (09:35)
[2020-01-02] MEDS: amLODIPine 10 MG TABLET PO SCH (09:35)
[2020-01-02] MEDS: carvediloL 6.25 MG TABLET PO SCH (09:35)
[2020-01-02] MEDS: FOLIC ACID 1 MG TABLET PO SCH (09:35)
[2020-01-02] MEDS: PANTOPRAZOLE 40 MG VIAL IV SCH (09:36)
== END 2020-01-02 10:55 | disposition home or self-care (01) ==
LOC: N.EDINP 16:01 → N.ED 16:01 → N.EDINP 21:25 → N.3E 21:26
PROVIDERS: ADMIT Hospitalist; ATTEND Hospitalist

== ENCOUNTER 2020-01-13 09:54 | Inpatient (IN) ==
[2020-01-13] MEDS ORDERED: SODIUM CHLORIDE 0.9% 1,000 ML IV STA (11:58)
[2020-01-13] MEDS ORDERED: HYDROmorphone 2 MG/1 ML VIAL IV STA (12:06)
[2020-01-13] MEDS ORDERED: diphenhydrAMINE 50 MG/1 ML VIAL IV STA (12:06)
[2020-01-13 12:25] LABS: Basophils # 0.1 10*3/uL (0.0-0.2); Basophils % 0.3 % (0.0-0.8); Eosinophils # 0.1 10*3/uL (0.0-0.87); Eosinophils % 0.9 % (0.00-10.9); Hematocrit 46.1 VOL% (42.0-52.0); Hemoglobin 15.1 GM/DL (14.0-18.0); Immature Granulocytes % 0.3 %; Immature Granulocytes Absolute 0.05 #; Lymphocytes # 1.5 10*3/uL (1.4-4.0); Mean Corpuscular HGB Conc 32.8 GM/DL (32-36); Mean Corpuscular Volume 94.3 FL (87-102); Mean Platelet Volume 8.7 FL (9.6-12.0); Monocytes % 4.4 % (1.7-12.7); Neutrophils % 84.1 % (38.7-73.9); Platelet Count 512 T/CUMM (130-400); Red Blood Count 4.89 MC/CUMM (3.8-5.5); Red Cell Distribution Width 13.6 % (9.3-17.3); White Blood Count 14.5 T/CUMM (4-12)
[2020-01-13 12:58] LABS: Alanine Aminotransferase 26 U/L (16-61); Albumin 3.6 G/DL (3.4-5.0); Alkaline Phosphatase 119 U/L (45-117); Aspartate Amino Transferase 22 U/L (0-37); Blood Urea Nitrogen 7 MG/DL (7-18); Estimated Glom Filtration Rate 125 ML/MIN; Glucose 105 MG/DL (74-106); Osmolality,Calculated 267.1 MOS/KG (273-304); Total Protein 8.5 G/DL (6.4-8.3)
[2020-01-13] MEDS ORDERED: SODIUM CHLORIDE 0.9% 1,000 ML IV SCH ×2 (13:00→15:30)
[2020-01-13] MEDS ORDERED: cefTRIAXone 1,000 MG in SODIUM CHLORIDE 0.9% 100 ML IV STA (14:22)
[2020-01-13] MEDS ORDERED: DEXTROSE 50% 25 GM/50 ML VIAL IV PRN (15:09)
[2020-01-13] MEDS ORDERED: ACETAMINOPHEN 325 MG TABLET PO PRN (15:09)
[2020-01-13] MEDS ORDERED: GLUCAGON 1 MG VIAL IM PRN (15:09)
[2020-01-13] MEDS ORDERED: ONDANSETRON 4 MG/2 ML VIAL IV PRN (15:09)
[2020-01-13] MEDS ORDERED: PIPERACILLIN/TAZOBACTAM 3,375 MG in SODIUM CHLORIDE 0.9% 100 ML IV SCH (16:00)
[2020-01-13] MEDS: LACTATED RINGERS 1,000 ML IV SCH (18:21)
[2020-01-13] MEDS: HYDROmorphone 2 MG/1 ML VIAL IV PRN ×2 (18:30→22:20)
[2020-01-13] MEDS ORDERED: diphenhydrAMINE CAP 25 MG CAPSULE PO PRN (22:52)
[2020-01-14] MEDS: LACTATED RINGERS 1,000 ML IV SCH ×3 (02:30→15:02)
[2020-01-14] MEDS: HYDROmorphone 2 MG/1 ML VIAL IV PRN ×5 (03:21→23:30)
[2020-01-14 06:52] LABS: Albumin 2.6 G/DL (3.4-5.0); Bilirubin,Total 0.4 MG/DL (0.2-1.0); Calcium 8.8 MG/DL (8.5-10.1); Osmolality,Calculated 266.1 MOS/KG (273-304); Total Protein 6.5 G/DL (6.4-8.3)
[2020-01-14 06:53] LABS: Basophils % 0.3 % (0.0-0.8); Eosinophils # 0.4 10*3/uL (0.0-0.87); Hematocrit 35.3 VOL% (42.0-52.0); Immature Granulocytes % 0.3 %; Immature Granulocytes Absolute 0.03 #; Lymphocytes # 2.2 10*3/uL (1.4-4.0); Lymphocytes % 24.2 % (21.2-54.2); Mean Corpuscular HGB Conc 33.1 GM/DL (32-36); Mean Corpuscular Volume 94.4 FL (87-102); Mean Platelet Volume 9.2 FL (9.6-12.0); Monocytes % 5.6 % (1.7-12.7); Neutrophils % 65.6 % (38.7-73.9); Platelet Count 423 T/CUMM (130-400); Red Cell Distribution Width 13.5 % (9.3-17.3)
[2020-01-14 07:02] LABS: Hemoglobin 11.7 GM/DL (14.0-18.0); Red Blood Count 3.74 MC/CUMM (3.8-5.5); White Blood Count 8.9 T/CUMM (4-12)
[2020-01-14] MEDS: PANTOPRAZOLE 40 MG TABLET PO SCH (09:29)
[2020-01-14] MEDS: diphenhydrAMINE 50 MG/1 ML VIAL IV PRN ×3 (09:30→21:14)
[2020-01-14] MEDS: PIPERACILLIN/TAZOBACTAM 3,375 MG in SODIUM CHLORIDE 0.9% 100 ML IV SCH ×2 (09:34→16:58)
[2020-01-14] MEDS ORDERED: KETOROLAC 15 MG/1 ML VIAL IV PRN (09:47)
[2020-01-14] MEDS: NICOTINE 21 MG/24 HR PATCH TRANSDERM SCH (11:26)
[2020-01-14] MEDS: ursodioL 300 MG CAPSULE PO SCH (21:08)
[2020-01-14] MEDS: carvediloL 6.25 MG TABLET PO SCH (21:08)
[2020-01-15] MEDS: PIPERACILLIN/TAZOBACTAM 3,375 MG in SODIUM CHLORIDE 0.9% 100 ML IV SCH ×3 (01:07→18:58)
[2020-01-15] MEDS: LACTATED RINGERS 1,000 ML IV SCH ×3 (03:38→15:42)
[2020-01-15] MEDS: diphenhydrAMINE 50 MG/1 ML VIAL IV PRN ×3 (03:47→20:31)
[2020-01-15] MEDS: HYDROmorphone 2 MG/1 ML VIAL IV PRN ×4 (03:50→19:02)
[2020-01-15 05:30] LABS: Basophils % 0.3 % (0.0-0.8); Eosinophils # 0.4 10*3/uL (0.0-0.87); Eosinophils % 3.7 % (0.00-10.9); Hematocrit 33.5 VOL% (42.0-52.0); Hemoglobin 11.1 GM/DL (14.0-18.0); Immature Granulocytes % 0.3 %; Immature Granulocytes Absolute 0.03 #; Lymphocytes # 2.2 10*3/uL (1.4-4.0); Lymphocytes % 21.2 % (21.2-54.2); Mean Corpuscular HGB Conc 33.1 GM/DL (32-36); Mean Corpuscular Volume 93.1 FL (87-102); Mean Platelet Volume 9.5 FL (9.6-12.0); Monocytes % 5.8 % (1.7-12.7); Neutrophils % 68.7 % (38.7-73.9); Platelet Count 402 T/CUMM (130-400); Red Cell Distribution Width 13.4 % (9.3-17.3); White Blood Count 10.4 T/CUMM (4-12)
[2020-01-15 06:15] LABS: Albumin 2.8 G/DL (3.4-5.0); Calcium 8.9 MG/DL (8.5-10.1); Osmolality,Calculated 267.1 MOS/KG (273-304); Total Protein 6.9 G/DL (6.4-8.3)
[2020-01-15] MEDS: amLODIPine 10 MG TABLET PO SCH (09:33)
[2020-01-15] MEDS: FOLIC ACID 1 MG TABLET PO SCH (09:33)
[2020-01-15] MEDS: carvediloL 6.25 MG TABLET PO SCH ×2 (09:33→20:32)
[2020-01-15] MEDS: ursodioL 300 MG CAPSULE PO SCH ×2 (09:33→20:32)
[2020-01-15] MEDS: NICOTINE 21 MG/24 HR PATCH TRANSDERM SCH (09:42)
[2020-01-15] MEDS: PANTOPRAZOLE 40 MG TABLET PO SCH (10:07)
[2020-01-16] MEDS: HYDROmorphone 2 MG/1 ML VIAL IV PRN ×3 (00:05→09:15)
[2020-01-16] MEDS: PIPERACILLIN/TAZOBACTAM 3,375 MG in SODIUM CHLORIDE 0.9% 100 ML IV SCH ×2 (01:05→10:29)
[2020-01-16] MEDS: diphenhydrAMINE 50 MG/1 ML VIAL IV PRN ×2 (02:07→09:16)
[2020-01-16] MEDS: LACTATED RINGERS 1,000 ML IV SCH ×3 (05:23→10:29)
[2020-01-16 05:42] LABS: Basophils % 0.4 % (0.0-0.8); Eosinophils # 0.4 10*3/uL (0.0-0.87); Eosinophils % 5.4 % (0.00-10.9); Hematocrit 35.2 VOL% (42.0-52.0); Hemoglobin 11.7 GM/DL (14.0-18.0); Immature Granulocytes % 0.1 %; Immature Granulocytes Absolute 0.01 #; Lymphocytes # 2.3 10*3/uL (1.4-4.0); Lymphocytes % 32.6 % (21.2-54.2); Mean Corpuscular HGB Conc 33.2 GM/DL (32-36); Mean Corpuscular Volume 93.4 FL (87-102); Mean Platelet Volume 9.2 FL (9.6-12.0); Monocytes % 6.8 % (1.7-12.7); Neutrophils % 54.7 % (38.7-73.9); Platelet Count 405 T/CUMM (130-400); Red Blood Count 3.77 MC/CUMM (3.8-5.5); Red Cell Distribution Width 13.5 % (9.3-17.3); White Blood Count 7.1 T/CUMM (4-12)
[2020-01-16 06:26] LABS: Albumin 2.8 G/DL (3.4-5.0); Bilirubin,Total 0.8 MG/DL (0.2-1.0); Calcium 9.3 MG/DL (8.5-10.1); Osmolality,Calculated 271.7 MOS/KG (273-304); Total Protein 7.2 G/DL (6.4-8.3)
[2020-01-16 07:57] VITALS: BP 99/62
[2020-01-16] MEDS: NICOTINE 21 MG/24 HR PATCH TRANSDERM SCH (09:15)
[2020-01-16] MEDS: PANTOPRAZOLE 40 MG TABLET PO SCH (09:16)
[2020-01-16] MEDS: FOLIC ACID 1 MG TABLET PO SCH (09:16)
[2020-01-16] MEDS: ursodioL 300 MG CAPSULE PO SCH (09:21)
[2020-01-16] MEDS: carvediloL 6.25 MG TABLET PO SCH (10:29)
[2020-01-16] MEDS: amLODIPine 10 MG TABLET PO SCH (10:29)
== END 2020-01-16 10:56 | disposition home or self-care (01) | DRG 439 ==
LOC: N.ED 09:54 → N.EDINP 15:05 → SUATTDRO 15:05 → N.3E 19:30 → N.2E 19:57 → N.3E 19:58
PROVIDERS: ADMIT Internal Medicine; ATTEND Internal Medicine Geriatric Medicine

== ENCOUNTER 2020-08-03 18:57 | Inpatient (IN) ==
[2020-08-03] MEDS ORDERED: ALUM/MAG/SIMETH/LIDO VISC 1:1 30 ML BOTTLE PO STA (19:47)
[2020-08-03] MEDS ORDERED: MEPERIDINE 25 MG/1 ML VIAL IV STA (19:47)
[2020-08-03] MEDS ORDERED: SODIUM CHLORIDE 0.9% 1,000 ML IV STA (19:47)
[2020-08-03] MEDS ORDERED: ONDANSETRON 4 MG/2 ML VIAL IV STA (19:47)
[2020-08-03] MEDS ORDERED: PANTOPRAZOLE 40 MG VIAL IV STA (19:47)
[2020-08-03 20:10] LABS: Basophils # 0.1 10*3/uL (0.0-0.2); Basophils % 0.6 % (0.0-0.8); Hematocrit 45.8 VOL% (42.0-52.0); Hemoglobin 15.5 GM/DL (14.0-18.0); Immature Granulocytes % 0.2 %; Immature Granulocytes Absolute 0.02 #; Lymphocytes # 1.1 10*3/uL (1.4-4.0); Lymphocytes % 12.1 % (21.2-54.2); Mean Corpuscular HGB Conc 33.8 GM/DL (32-36); Mean Platelet Volume 9.5 FL (9.6-12.0); Monocytes % 7.4 % (1.7-12.7); Neutrophils % 79.7 % (38.7-73.9); Platelet Count 179 T/CUMM (130-400); Red Blood Count 4.82 MC/CUMM (3.8-5.5); Red Cell Distribution Width 13.8 % (9.3-17.3); White Blood Count 8.9 T/CUMM (4-12)
[2020-08-03] MEDS ORDERED: PIPERACILLIN/TAZOBACTAM 3,375 MG VIAL IV ONE (20:56)
[2020-08-03] MEDS ORDERED: PIPERACILLIN/TAZOBACTAM 3,375 MG in SODIUM CHLORIDE 0.9% 100 ML IV STA (20:56)
[2020-08-03] MEDS ORDERED: HYDROmorphone 2 MG/1 ML VIAL IV STA (20:56)
[2020-08-03] MEDS ORDERED: SODIUM CHLORIDE 0.9% 100 ML IV ONE (20:57)
[2020-08-03] MEDS ORDERED: HYDROmorphone 2 MG/1 ML VIAL ONE (20:57)
[2020-08-03 21:01] LABS: Albumin 4.1 G/DL (3.4-5.0); Bilirubin,Total 0.5 MG/DL (0.2-1.0); Calcium 9.4 MG/DL (8.5-10.1); Osmolality,Calculated 266.2 MOS/KG (273-304); Potassium 4.1 MMOL/L (3.5-5.1)
[2020-08-03] MEDS ORDERED: DEXTROSE 50% 25 GM/50 ML VIAL IV PRN (22:05)
[2020-08-03] MEDS ORDERED: GLUCAGON 1 MG VIAL IM PRN (22:05)
[2020-08-03] MEDS ORDERED: NICOTINE 21 MG/24 HR PATCH TRANSDERM PRN (22:05)
[2020-08-03] MEDS ORDERED: hydrALAZINE 20 MG/1 ML VIAL IV PRN (22:05)
[2020-08-03] MEDS ORDERED: SODIUM CHLORIDE 0.9% 1,000 ML IV ONE (22:05)
[2020-08-03] MEDS ORDERED: diphenhydrAMINE CAP 25 MG CAPSULE PO PRN (22:05)
[2020-08-03 23:10] LABS: Bilirubin,Urine Negative (Negative); Blood, Urine Small mg/dL (Negative); Glucose,Urine (UA) Negative (Negative); Ketones,Urine 5 mg/dL (Negative); Mucus,Urine Occasional /LPF (Occasional); Nitrite,Urine Negative (Negative); Protein,Urine Negative; RBC,Urine 2 /HPF (0-4); Squamous Epithelial Cell,Urine Occasional /HPF (0-10); Urine Appearance CLEAR (Clear); Urine Color Straw (Yellow); Urine Specific Gravity 1.051 (1.001-1.035); Urine Urobilinogen < 2.0 EU/DL (0.2-1.0); WBC,Urine 2 /HPF (0-6)
[2020-08-03 23:24] LABS: Barbiturates Screen,Urine Negative (Negative); Benzodiazepines Screen,Urine Negative (Negative); Cannabinoid Screen,Urine Negative (Negative); Opiate Screen,Urine Positive (Negative); Phencyclidine Screen,Urine Negative (Negative)
[2020-08-03] MEDS: SODIUM CHLORIDE 0.9% 1,000 ML IV SCH (23:35)
[2020-08-04] MEDS: MEPERIDINE 25 MG/1 ML VIAL IV PRN ×4 (00:18→11:54)
[2020-08-04 01:04] LABS: Albumin 3.7 G/DL (3.4-5.0); Bilirubin,Total 0.7 MG/DL (0.2-1.0); Calcium 8.2 MG/DL (8.5-10.1); Osmolality,Calculated 265.2 MOS/KG (273-304); Potassium 4.3 MMOL/L (3.5-5.1); Total Protein 7.2 G/DL (6.4-8.3)
[2020-08-04 01:21] LABS: Albumin 3.7 G/DL (3.4-5.0); Bilirubin,Direct 0.18 MG/DL (0.0-0.20); Bilirubin,Indirect 0.6 MG/DL (0.0-1.0); Bilirubin,Total 0.8 MG/DL (0.2-1.0); Total Protein 7.2 G/DL (6.4-8.3)
[2020-08-04] MEDS ORDERED: LORazepam 2 MG/1 ML VIAL IV PRN (07:44)
[2020-08-04] MEDS ORDERED: THIAMINE INJ 100 MG, FOLIC ACID INJ 1 MG, MULTIVITAMIN INJ 10 ML in SODIUM CHLORIDE 0.9... IV ONE (13:02)
[2020-08-04] MEDS ORDERED: SODIUM CHLORIDE 0.9% 500 ML IV ONE (13:03)
[2020-08-04] MEDS: chlordiazePOXIDE 25 MG CAPSULE PO SCH ×3 (14:03→20:55)
[2020-08-04] MEDS: LEVOFLOXACIN INJ 500 MG in PREMIX 1 EACH IV SCH (14:04)
[2020-08-04] MEDS: HYDROmorphone 2 MG/1 ML VIAL IV PRN ×3 (14:04→22:20)
[2020-08-04] MEDS: ONDANSETRON 4 MG/2 ML VIAL IV PRN (18:07)
[2020-08-05] MEDS: SODIUM CHLORIDE 0.9% 1,000 ML IV SCH ×3 (01:36→17:06)
[2020-08-05 05:59] LABS: Basophils % 0.2 % (0.0-0.8); Eosinophils # 0.1 10*3/uL (0.0-0.87); Eosinophils % 0.8 % (0.00-10.9); Hematocrit 41.4 VOL% (42.0-52.0); Hemoglobin 13.8 GM/DL (14.0-18.0); Immature Granulocytes % 0.2 %; Immature Granulocytes Absolute 0.01 #; Lymphocytes # 1.4 10*3/uL (1.4-4.0); Lymphocytes % 21.3 % (21.2-54.2); Mean Corpuscular HGB Conc 33.3 GM/DL (32-36); Mean Corpuscular Volume 96.3 FL (87-102); Mean Platelet Volume 9.7 FL (9.6-12.0); Monocytes % 9.6 % (1.7-12.7); Neutrophils % 67.9 % (38.7-73.9); Red Cell Distribution Width 13.7 % (9.3-17.3); White Blood Count 6.5 T/CUMM (4-12)
[2020-08-05 06:02] LABS: Platelet Count 141 T/CUMM (130-400)
[2020-08-05 06:17] LABS: Albumin 3.5 G/DL (3.4-5.0); Bilirubin,Total 1.3 MG/DL (0.2-1.0); Osmolality,Calculated 258.7 MOS/KG (273-304); Total Protein 7.6 G/DL (6.4-8.3)
[2020-08-05 06:19] LABS: Platelet Estimate Adequate
[2020-08-05] MEDS: HYDROmorphone 2 MG/1 ML VIAL IV PRN ×4 (06:57→21:12)
[2020-08-05] MEDS: ONDANSETRON 4 MG/2 ML VIAL IV PRN (07:48)
[2020-08-05] MEDS: chlordiazePOXIDE 25 MG CAPSULE PO SCH ×4 (09:16→20:32)
[2020-08-05] MEDS: LEVOFLOXACIN INJ 500 MG in PREMIX 1 EACH IV SCH (14:59)
[2020-08-06] MEDS: HYDROmorphone 2 MG/1 ML VIAL IV PRN ×3 (01:15→10:30)
[2020-08-06] MEDS: SODIUM CHLORIDE 0.9% 1,000 ML IV SCH ×2 (01:30→14:03)
[2020-08-06 06:29] LABS: Basophils % 0.4 % (0.0-0.8); Eosinophils # 0.1 10*3/uL (0.0-0.87); Eosinophils % 1.2 % (0.00-10.9); Hematocrit 35.2 VOL% (42.0-52.0); Hemoglobin 11.9 GM/DL (14.0-18.0); Immature Granulocytes % 0.4 %; Immature Granulocytes Absolute 0.02 #; Lymphocytes # 1.1 10*3/uL (1.4-4.0); Lymphocytes % 22.6 % (21.2-54.2); Mean Corpuscular HGB Conc 33.8 GM/DL (32-36); Mean Corpuscular Volume 95.7 FL (87-102); Mean Platelet Volume 10.3 FL (9.6-12.0); Monocytes % 12.9 % (1.7-12.7); Neutrophils % 62.5 % (38.7-73.9); Platelet Count 129 T/CUMM (130-400); Red Blood Count 3.68 MC/CUMM (3.8-5.5); Red Cell Distribution Width 13.4 % (9.3-17.3)
[2020-08-06 07:06] LABS: Hypochromasia 1+
[2020-08-06 07:10] LABS: Albumin 2.9 G/DL (3.4-5.0); Bilirubin,Total 1.2 MG/DL (0.2-1.0); Calcium 8.1 MG/DL (8.5-10.1); Osmolality,Calculated 268.1 MOS/KG (273-304); Potassium 3.6 MMOL/L (3.5-5.1); Total Protein 6.5 G/DL (6.4-8.3)
[2020-08-06] MEDS: chlordiazePOXIDE 25 MG CAPSULE PO SCH ×2 (10:30→14:03)
[2020-08-06 11:27] VITALS: BP 147/93
[2020-08-06] MEDS: LEVOFLOXACIN INJ 500 MG in PREMIX 1 EACH IV SCH (14:03)
== END 2020-08-06 15:00 | disposition home or self-care (01) | DRG 439 ==
LOC: N.ED 18:57 → N.4E 22:05
PROVIDERS: ADMIT Internal Medicine; ATTEND Internal Medicine

== ENCOUNTER 2020-10-18 09:43 | Inpatient (IN) ==
[2020-10-18] MEDS ORDERED: ONDANSETRON 4 MG/2 ML VIAL IV STA (10:20)
[2020-10-18] MEDS ORDERED: HYDROmorphone 2 MG/1 ML VIAL IV STA (10:21)
[2020-10-18 10:44] LABS: Basophils % 0.5 % (0.0-0.8); Eosinophils % 0.5 % (0.00-10.9); Hematocrit 35.7 VOL% (42.0-52.0); Hemoglobin 12.1 GM/DL (14.0-18.0); Immature Granulocytes % 0.3 %; Immature Granulocytes Absolute 0.02 #; Lymphocytes # 1.1 10*3/uL (1.4-4.0); Lymphocytes % 18.2 % (21.2-54.2); Mean Corpuscular HGB Conc 33.9 GM/DL (32-36); Mean Corpuscular Volume 94.9 FL (87-102); Monocytes % 8.8 % (1.7-12.7); Neutrophils % 71.7 % (38.7-73.9); Platelet Count 247 T/CUMM (130-400); Red Blood Count 3.76 MC/CUMM (3.8-5.5); Red Cell Distribution Width 13.8 % (9.3-17.3); White Blood Count 5.9 T/CUMM (4-12)
[2020-10-18 10:56] LABS: INR 0.9; PT Patient Result 10.3 SECS (10.5-12.0); Partial Thromboplastin Time 25.2 SECS (23.9-33.8)
[2020-10-18 11:07] LABS: Albumin 3.6 G/DL (3.4-5.0); Bilirubin,Total 0.4 MG/DL (0.2-1.0); Calcium 8.9 MG/DL (8.5-10.1); Osmolality,Calculated 272.7 MOS/KG (273-304); Potassium 3.9 MMOL/L (3.5-5.1); Total Protein 6.8 G/DL (6.4-8.2)
[2020-10-18 11:44] LABS: Barbiturates Screen,Urine Negative (Negative); Benzodiazepines Screen,Urine Negative (Negative); Cannabinoid Screen,Urine Negative (Negative); Opiate Screen,Urine Positive (Negative); Phencyclidine Screen,Urine Negative (Negative)
[2020-10-18] MEDS ORDERED: GLUCAGON 1 MG VIAL IM PRN (12:33)
[2020-10-18] MEDS ORDERED: hydrALAZINE 20 MG/1 ML VIAL IV PRN (12:33)
[2020-10-18] MEDS ORDERED: DEXTROSE 50% 25 GM/50 ML VIAL IV PRN (12:33)
[2020-10-18] MEDS ORDERED: ACETAMINOPHEN 325 MG TABLET PO PRN (12:33)
[2020-10-18] MEDS ORDERED: LORazepam 2 MG/1 ML VIAL IV PRN (13:00)
[2020-10-18 13:17] LABS: Risk Ratio 1.64; Thyroid Stimulating Hormone 1.06 uIU/ml (0.358-3.74); VLDL CHOLESTEROL 10.8 MG/DL
[2020-10-18] MEDS: HYDROmorphone 2 MG/1 ML VIAL IV PRN ×3 (13:20→20:44)
[2020-10-18] MEDS ORDERED: THIAMINE INJ 100 MG, FOLIC ACID INJ 1 MG, MULTIVITAMIN INJ 10 ML in SODIUM CHLORIDE 0.9... IV ONE (13:30)
[2020-10-18 14:14] LABS: Bilirubin,Urine Negative (Negative); Blood, Urine Negative (Negative); Glucose,Urine (UA) Negative (Negative); Ketones,Urine Negative (Negative); Mucus,Urine Few /LPF (Occasional); Nitrite,Urine Negative (Negative); Protein,Urine Negative; RBC,Urine 1 /HPF (0-4); Urine Appearance CLEAR (Clear); Urine Color Yellow (Yellow); Urine Specific Gravity 1.017 (1.001-1.035); Urine Urobilinogen < 2.0 EU/DL (0.2-1.0)
[2020-10-18] MEDS: SODIUM CHLORIDE 0.9% 1,000 ML IV SCH ×2 (14:59→22:09)
[2020-10-18] MEDS: PANTOPRAZOLE 40 MG VIAL IV SCH ×2 (14:59→20:43)
[2020-10-18] MEDS: NICOTINE 21 MG/24 HR PATCH TRANSDERM SCH (15:00)
[2020-10-18 15:09] LABS: Hematocrit 35.1 VOL% (42.0-52.0); Hemoglobin 11.7 GM/DL (14.0-18.0)
[2020-10-18] MEDS: diphenhydrAMINE CAP 25 MG CAPSULE PO PRN ×2 (17:27→23:25)
[2020-10-19] MEDS: SODIUM CHLORIDE 0.9% 1,000 ML IV SCH ×2 (00:45→10:37)
[2020-10-19] MEDS: HYDROmorphone 2 MG/1 ML VIAL IV PRN ×4 (00:45→10:17)
[2020-10-19] MEDS: diphenhydrAMINE CAP 25 MG CAPSULE PO PRN (05:00)
[2020-10-19 06:54] LABS: Basophils % 0.8 % (0.0-0.8); Eosinophils # 0.1 10*3/uL (0.0-0.87); Eosinophils % 1.4 % (0.00-10.9); Hematocrit 32.4 VOL% (42.0-52.0); Hemoglobin 10.9 GM/DL (14.0-18.0); Immature Granulocytes % 0.2 %; Immature Granulocytes Absolute 0.01 #; Lymphocytes # 1.3 10*3/uL (1.4-4.0); Mean Corpuscular HGB Conc 33.6 GM/DL (32-36); Mean Corpuscular Volume 96.4 FL (87-102); Mean Platelet Volume 9.8 FL (9.6-12.0); Monocytes % 13.4 % (1.7-12.7); Neutrophils % 59.2 % (38.7-73.9); Platelet Count 223 T/CUMM (130-400); Red Blood Count 3.36 MC/CUMM (3.8-5.5); Red Cell Distribution Width 13.8 % (9.3-17.3); White Blood Count 5.2 T/CUMM (4-12)
[2020-10-19 07:13] LABS: Calcium 8.5 MG/DL (8.5-10.1); Osmolality,Calculated 266.1 MOS/KG (273-304); Potassium 3.6 MMOL/L (3.5-5.1)
[2020-10-19] MEDS: NICOTINE 21 MG/24 HR PATCH TRANSDERM SCH (10:37)
[2020-10-19] MEDS: PANTOPRAZOLE 40 MG VIAL IV SCH (10:37)
[2020-10-19 12:04] VITALS: BP 137/86
== END 2020-10-19 12:46 | disposition home or self-care (01) | DRG 439 ==
LOC: N.ED 09:43 → N.EDINP 12:33 → N.5E 14:30
PROVIDERS: ADMIT Internal Medicine; ATTEND Internal Medicine

== ENCOUNTER 2020-10-21 13:47 | Inpatient (IN) ==
[2020-10-21] MEDS ORDERED: FAMOTIDINE 20 MG/2 ML VIAL IV STA (14:38)
[2020-10-21] MEDS ORDERED: SODIUM CHLORIDE 0.9% 1,000 ML IV STA (14:38)
[2020-10-21 14:54] LABS: Basophils % 0.7 % (0.0-0.8); Eosinophils # 0.1 10*3/uL (0.0-0.87); Eosinophils % 1.5 % (0.00-10.9); Hematocrit 33.9 VOL% (42.0-52.0); Hemoglobin 11.3 GM/DL (14.0-18.0); Immature Granulocytes % 0.2 %; Immature Granulocytes Absolute 0.01 #; Lymphocytes # 1.4 10*3/uL (1.4-4.0); Lymphocytes % 23.8 % (21.2-54.2); Mean Corpuscular HGB Conc 33.3 GM/DL (32-36); Mean Corpuscular Volume 97.4 FL (87-102); Monocytes % 15.1 % (1.7-12.7); Neutrophils % 58.7 % (38.7-73.9); Platelet Count 267 T/CUMM (130-400); Red Blood Count 3.48 MC/CUMM (3.8-5.5); White Blood Count 5.8 T/CUMM (4-12)
[2020-10-21 15:25] LABS: Albumin 3.3 G/DL (3.4-5.0); Bilirubin,Total 0.6 MG/DL (0.2-1.0); Calcium 8.6 MG/DL (8.5-10.1); Osmolality,Calculated 268.1 MOS/KG (273-304); Total Protein 6.8 G/DL (6.4-8.2)
[2020-10-21] MEDS ORDERED: ONDANSETRON 4 MG/2 ML VIAL IV PRN (16:07)
[2020-10-21] MEDS ORDERED: DEXTROSE 50% 25 GM/50 ML VIAL IV PRN (16:07)
[2020-10-21] MEDS ORDERED: GLUCAGON 1 MG VIAL IM PRN (16:07)
[2020-10-21] MEDS ORDERED: LORazepam 2 MG/1 ML VIAL IV PRN (16:16)
[2020-10-21 16:22] LABS: Bilirubin,Urine Negative (Negative); Blood, Urine Negative (Negative); Glucose,Urine (UA) 50 mg/dL (Negative); Ketones,Urine 5 mg/dL (Negative); Mucus,Urine Occasional /LPF (Occasional); Nitrite,Urine Negative (Negative); Protein,Urine Negative; RBC,Urine 2 /HPF (0-4); Squamous Epithelial Cell,Urine Occasional /HPF (0-10); Urine Appearance CLEAR (Clear); Urine Color Yellow (Yellow); Urine Specific Gravity 1.017 (1.001-1.035)
[2020-10-21] MEDS: HYDROmorphone 2 MG/1 ML VIAL IV PRN ×2 (16:30→20:59)
[2020-10-21] MEDS ORDERED: MAGNESIUM SULF RIDER 2 GM/50 ML PREMIX IV STA (17:13)
[2020-10-21] MEDS ORDERED: NICOTINE 21 MG/24 HR PATCH TRANSDERM PRN (17:20)
[2020-10-21] MEDS: ENOXAPARIN 40 MG/0.4 ML SYRINGE SUBCUT SCH (21:00)
[2020-10-21] MEDS: PANTOPRAZOLE 40 MG VIAL IV SCH (21:01)
[2020-10-21] MEDS: carvediloL 6.25 MG TABLET PO SCH ×2 (21:01→21:07)
[2020-10-21] MEDS: LACTATED RINGERS 1,000 ML IV SCH ×2 (21:01→23:05)
[2020-10-22] MEDS: HYDROmorphone 2 MG/1 ML VIAL IV PRN ×5 (01:07→21:03)
[2020-10-22 05:19] LABS: Basophils % 0.8 % (0.0-0.8); Eosinophils # 0.1 10*3/uL (0.0-0.87); Eosinophils % 2.1 % (0.00-10.9); Hematocrit 30.5 VOL% (42.0-52.0); Hemoglobin 9.8 GM/DL (14.0-18.0); Immature Granulocytes % 0.2 %; Immature Granulocytes Absolute 0.01 #; Lymphocytes # 1.9 10*3/uL (1.4-4.0); Lymphocytes % 39.5 % (21.2-54.2); Mean Corpuscular HGB Conc 32.1 GM/DL (32-36); Mean Corpuscular Volume 98.1 FL (87-102); Mean Platelet Volume 9.5 FL (9.6-12.0); Monocytes % 13.5 % (1.7-12.7); Neutrophils % 43.9 % (38.7-73.9); Platelet Count 254 T/CUMM (130-400); Red Blood Count 3.11 MC/CUMM (3.8-5.5); Red Cell Distribution Width 13.6 % (9.3-17.3); White Blood Count 4.8 T/CUMM (4-12)
[2020-10-22] MEDS: LACTATED RINGERS 1,000 ML IV SCH ×2 (05:33→18:17)
[2020-10-22 05:39] LABS: Eosinophils 2 % (0-10); Hypochromasia 1+; Lymphocytes 34 % (20-55); Microcytosis 1+; Platelet Estimate Adequate; Segmented Neutrophils 53 % (50-85); Total Cells Counted 100
[2020-10-22 06:01] LABS: Bilirubin,Total 0.6 MG/DL (0.2-1.0); Calcium 8.3 MG/DL (8.5-10.1); Osmolality,Calculated 270.8 MOS/KG (273-304); Potassium 3.8 MMOL/L (3.5-5.1); Risk Ratio 2.26; Total Protein 6.3 G/DL (6.4-8.2); VLDL CHOLESTEROL 12.4 MG/DL
[2020-10-22] MEDS: carvediloL 6.25 MG TABLET PO SCH ×2 (09:09→21:04)
[2020-10-22] MEDS: FOLIC ACID 1 MG TABLET PO SCH (09:09)
[2020-10-22] MEDS: THIAMINE 100 MG TABLET PO SCH (09:09)
[2020-10-22] MEDS: MULTIVITAMIN (CENTRUM) TABLET PO SCH (09:09)
[2020-10-22] MEDS: PANTOPRAZOLE 40 MG VIAL IV SCH ×2 (09:11→21:04)
[2020-10-22] MEDS: diphenhydrAMINE 50 MG/1 ML VIAL IV PRN (11:50)
[2020-10-22] MEDS: ENOXAPARIN 40 MG/0.4 ML SYRINGE SUBCUT SCH (21:04)
[2020-10-23] MEDS: LACTATED RINGERS 1,000 ML IV SCH ×3 (01:04→21:07)
[2020-10-23] MEDS: HYDROmorphone 2 MG/1 ML VIAL IV PRN ×5 (01:04→21:16)
[2020-10-23 05:24] LABS: Basophils # 0.1 10*3/uL (0.0-0.2); Basophils % 1.2 % (0.0-0.8); Eosinophils # 0.1 10*3/uL (0.0-0.87); Eosinophils % 2.3 % (0.00-10.9); Hematocrit 32.2 VOL% (42.0-52.0); Hemoglobin 10.9 GM/DL (14.0-18.0); Immature Granulocytes % 0.2 %; Immature Granulocytes Absolute 0.01 #; Lymphocytes # 1.8 10*3/uL (1.4-4.0); Lymphocytes % 41.8 % (21.2-54.2); Mean Corpuscular HGB Conc 33.9 GM/DL (32-36); Mean Corpuscular Volume 96.1 FL (87-102); Mean Platelet Volume 9.9 FL (9.6-12.0); Monocytes % 11.3 % (1.7-12.7); Neutrophils % 43.2 % (38.7-73.9); Platelet Count 246 T/CUMM (130-400); Red Blood Count 3.35 MC/CUMM (3.8-5.5); Red Cell Distribution Width 13.4 % (9.3-17.3); White Blood Count 4.3 T/CUMM (4-12)
[2020-10-23 05:36] LABS: Calcium 8.6 MG/DL (8.5-10.1); Potassium 4.1 MMOL/L (3.5-5.1)
[2020-10-23 05:55] LABS: Atypical Lymphocytes Few; Eosinophils 7 % (0-10); Hypochromasia Slight; Lymphocytes 50 % (20-55); Platelet Estimate Adequate; Segmented Neutrophils 39 % (50-85); Total Cells Counted 100
[2020-10-23 05:56] LABS: Microcytosis Slight
[2020-10-23] MEDS: FOLIC ACID 1 MG TABLET PO SCH (09:06)
[2020-10-23] MEDS: PANTOPRAZOLE 40 MG VIAL IV SCH ×2 (09:06→21:11)
[2020-10-23] MEDS: MULTIVITAMIN (CENTRUM) TABLET PO SCH (09:06)
[2020-10-23] MEDS: THIAMINE 100 MG TABLET PO SCH (09:06)
[2020-10-23] MEDS: carvediloL 6.25 MG TABLET PO SCH ×2 (09:06→21:08)
[2020-10-23 13:33] LABS: Hepatitis B Surface Ag Quant < 0.10 Index; Hepatitis B Surface Ag Result Non-Reactive (NonReactive); Hepatitis C Virus Ab Quant 0.12 Index; Hepatitis C Virus Ab Result Non-Reactive (NonReactive)
[2020-10-23] MEDS: diphenhydrAMINE 50 MG/1 ML VIAL IV PRN (15:55)
[2020-10-23] MEDS: ENOXAPARIN 40 MG/0.4 ML SYRINGE SUBCUT SCH (21:09)
[2020-10-24] MEDS: HYDROmorphone 2 MG/1 ML VIAL IV PRN ×2 (01:47→05:39)
[2020-10-24] MEDS: LACTATED RINGERS 1,000 ML IV SCH (05:39)
[2020-10-24 08:00] VITALS: BP 123/89
[2020-10-24] MEDS: carvediloL 6.25 MG TABLET PO SCH (10:41)
[2020-10-24] MEDS: MULTIVITAMIN (CENTRUM) TABLET PO SCH (10:41)
[2020-10-24] MEDS: FOLIC ACID 1 MG TABLET PO SCH (10:41)
[2020-10-24] MEDS: THIAMINE 100 MG TABLET PO SCH (10:41)
[2020-10-24] MEDS: PANTOPRAZOLE 40 MG VIAL IV SCH (10:41)
== END 2020-10-24 11:20 | disposition home or self-care (01) | DRG 440 ==
LOC: N.ED 13:47 → N.EDINP 13:47 → SUATTDRO 16:07 → N.3E 17:45
PROVIDERS: ADMIT Internal Medicine; ATTEND Internal Medicine

== ENCOUNTER 2020-11-06 08:53 | Inpatient (IN) ==
[2020-11-06] MEDS ORDERED: HYDROmorphone 2 MG/1 ML VIAL IV STA (09:22)
[2020-11-06] MEDS ORDERED: ONDANSETRON 4 MG/2 ML VIAL IV STA (09:22)
[2020-11-06] MEDS ORDERED: SODIUM CHLORIDE 0.9% 1,000 ML IV STA (09:22)
[2020-11-06 09:56] LABS: Basophils % 0.6 % (0.0-0.8); Eosinophils # 0.1 10*3/uL (0.0-0.87); Eosinophils % 1.5 % (0.00-10.9); Hemoglobin 11.6 GM/DL (14.0-18.0); Immature Granulocytes % 0.3 %; Immature Granulocytes Absolute 0.02 #; Lymphocytes # 1.6 10*3/uL (1.4-4.0); Lymphocytes % 25.1 % (21.2-54.2); Mean Corpuscular HGB Conc 33.1 GM/DL (32-36); Mean Corpuscular Volume 92.1 FL (87-102); Mean Platelet Volume 9.5 FL (9.6-12.0); Monocytes % 11.3 % (1.7-12.7); Neutrophils % 61.2 % (38.7-73.9); Platelet Count 284 T/CUMM (130-400); Red Cell Distribution Width 13.9 % (9.3-17.3); White Blood Count 6.5 T/CUMM (4-12)
[2020-11-06 10:21] LABS: Alanine Aminotransferase 62 U/L (16-61); Albumin 3.1 G/DL (3.4-5.0); Alkaline Phosphatase 110 U/L (45-117); Aspartate Amino Transferase 55 U/L (0-37); Blood Urea Nitrogen 9 MG/DL (7-18); Carbon Dioxide 22 MMOL/L (21-32); Estimated Glom Filtration Rate 116 ML/MIN; Glucose 114 MG/DL (74-106); Osmolality,Calculated 261.7 MOS/KG (273-304); Potassium 3.9 MMOL/L (3.5-5.1); Sodium 131 MMOL/L (136-145); Total Protein 7.4 G/DL (6.4-8.2)
[2020-11-06 10:54] LABS: Barbiturates Screen,Urine Negative (Negative); Benzodiazepines Screen,Urine Negative (Negative); Cannabinoid Screen,Urine Negative (Negative); Opiate Screen,Urine Positive (Negative); Phencyclidine Screen,Urine Negative (Negative)
[2020-11-06] MEDS ORDERED: ONDANSETRON 4 MG/2 ML VIAL IV PRN (12:10)
[2020-11-06] MEDS ORDERED: ZALEPLON 5 MG CAPSULE PO PRN (12:10)
[2020-11-06] MEDS ORDERED: chlordiazePOXIDE 10 MG CAPSULE PO PRN (12:19)
[2020-11-06] MEDS: HYDROmorphone 2 MG/1 ML VIAL IV SCH ×7 (13:40→22:46)
[2020-11-06] MEDS: APIXABAN 5 MG TABLET PO SCH ×2 (13:45→20:50)
[2020-11-06] MEDS: NICOTINE 21 MG/24 HR PATCH TRANSDERM SCH (13:45)
[2020-11-06] MEDS: SODIUM CHLORIDE 0.9% 1,000 ML IV SCH ×2 (13:45→22:46)
[2020-11-06] MEDS: diphenhydrAMINE 50 MG/1 ML VIAL IV PRN (16:51)
[2020-11-07] MEDS: HYDROmorphone 2 MG/1 ML VIAL IV SCH ×13 (00:54→23:59)
[2020-11-07] MEDS: diphenhydrAMINE 50 MG/1 ML VIAL IV PRN ×4 (02:28→19:30)
[2020-11-07 05:13] LABS: Basophils % 0.5 % (0.0-0.8); Eosinophils # 0.2 10*3/uL (0.0-0.87); Eosinophils % 2.6 % (0.00-10.9); Hematocrit 35.1 VOL% (42.0-52.0); Hemoglobin 11.5 GM/DL (14.0-18.0); Immature Granulocytes % 0.5 %; Immature Granulocytes Absolute 0.04 #; Lymphocytes # 1.9 10*3/uL (1.4-4.0); Lymphocytes % 24.8 % (21.2-54.2); Mean Corpuscular HGB Conc 32.8 GM/DL (32-36); Mean Corpuscular Volume 93.4 FL (87-102); Mean Platelet Volume 9.4 FL (9.6-12.0); Monocytes % 9.4 % (1.7-12.7); Neutrophils % 62.2 % (38.7-73.9); Platelet Count 261 T/CUMM (130-400); Red Blood Count 3.76 MC/CUMM (3.8-5.5); Red Cell Distribution Width 13.8 % (9.3-17.3); White Blood Count 7.6 T/CUMM (4-12)
[2020-11-07 05:39] LABS: Albumin 3.3 G/DL (3.4-5.0); Bilirubin,Total 1.1 MG/DL (0.2-1.0); Calcium 8.9 MG/DL (8.5-10.1); Osmolality,Calculated 260.5 MOS/KG (273-304); Potassium 3.7 MMOL/L (3.5-5.1); Total Protein 7.4 G/DL (6.4-8.2)
[2020-11-07] MEDS: PANTOPRAZOLE 40 MG TABLET PO SCH (09:04)
[2020-11-07] MEDS: APIXABAN 5 MG TABLET PO SCH ×2 (09:05→20:14)
[2020-11-07] MEDS: NICOTINE 21 MG/24 HR PATCH TRANSDERM SCH (09:06)
[2020-11-07] MEDS: SODIUM CHLORIDE 0.9% 1,000 ML IV SCH ×3 (09:06→20:15)
[2020-11-08] MEDS: HYDROmorphone 2 MG/1 ML VIAL IV SCH ×3 (02:54→06:51)
[2020-11-08] MEDS: diphenhydrAMINE 50 MG/1 ML VIAL IV PRN ×4 (03:01→22:34)
[2020-11-08] MEDS: SODIUM CHLORIDE 0.9% 1,000 ML IV SCH ×4 (04:48→22:37)
[2020-11-08 05:43] LABS: Basophils % 0.4 % (0.0-0.8); Eosinophils # 0.2 10*3/uL (0.0-0.87); Eosinophils % 4.2 % (0.00-10.9); Hematocrit 31.4 VOL% (42.0-52.0); Hemoglobin 10.7 GM/DL (14.0-18.0); Immature Granulocytes % 0.2 %; Immature Granulocytes Absolute 0.01 #; Lymphocytes # 1.5 10*3/uL (1.4-4.0); Lymphocytes % 30.1 % (21.2-54.2); Mean Corpuscular HGB Conc 34.1 GM/DL (32-36); Mean Corpuscular Volume 91.5 FL (87-102); Mean Platelet Volume 9.5 FL (9.6-12.0); Monocytes % 10.6 % (1.7-12.7); Neutrophils % 54.5 % (38.7-73.9); Platelet Count 191 T/CUMM (130-400); Red Blood Count 3.43 MC/CUMM (3.8-5.5); Red Cell Distribution Width 13.9 % (9.3-17.3)
[2020-11-08 06:06] LABS: Albumin 2.6 G/DL (3.4-5.0); Bilirubin,Total 0.5 MG/DL (0.2-1.0); Calcium 8.4 MG/DL (8.5-10.1); Osmolality,Calculated 267.1 MOS/KG (273-304); Potassium 3.6 MMOL/L (3.5-5.1); Total Protein 6.1 G/DL (6.4-8.2)
[2020-11-08] MEDS ORDERED: MAGNESIUM SULF RIDER 2 GM/50 ML PREMIX IV PRN (08:14)
[2020-11-08] MEDS ORDERED: MAGNESIUM SULF RIDER 4 GM/100 ML PREMIX IV PRN (08:14)
[2020-11-08] MEDS: PANTOPRAZOLE 40 MG TABLET PO SCH (08:39)
[2020-11-08] MEDS: APIXABAN 5 MG TABLET PO SCH ×2 (08:39→21:34)
[2020-11-08] MEDS: hydrALAZINE 20 MG/1 ML VIAL IV PRN (08:39)
[2020-11-08] MEDS: NICOTINE 21 MG/24 HR PATCH TRANSDERM SCH (08:40)
[2020-11-08] MEDS: HYDROmorphone 2 MG/1 ML VIAL IV PRN ×5 (10:10→22:35)
[2020-11-09] MEDS: SODIUM CHLORIDE 0.9% 1,000 ML IV SCH ×5 (01:18→23:25)
[2020-11-09] MEDS: HYDROmorphone 2 MG/1 ML VIAL IV PRN ×5 (03:35→20:37)
[2020-11-09 05:28] LABS: Basophils % 0.6 % (0.0-0.8); Eosinophils # 0.2 10*3/uL (0.0-0.87); Eosinophils % 4.2 % (0.00-10.9); Hematocrit 32.3 VOL% (42.0-52.0); Hemoglobin 10.5 GM/DL (14.0-18.0); Immature Granulocytes % 0.2 %; Immature Granulocytes Absolute 0.01 #; Lymphocytes # 1.8 10*3/uL (1.4-4.0); Lymphocytes % 37.7 % (21.2-54.2); Mean Corpuscular HGB Conc 32.5 GM/DL (32-36); Mean Corpuscular Volume 94.2 FL (87-102); Mean Platelet Volume 9.5 FL (9.6-12.0); Monocytes % 9.8 % (1.7-12.7); Neutrophils % 47.5 % (38.7-73.9); Platelet Count 218 T/CUMM (130-400); Red Blood Count 3.43 MC/CUMM (3.8-5.5); Red Cell Distribution Width 14.1 % (9.3-17.3); White Blood Count 4.8 T/CUMM (4-12)
[2020-11-09] MEDS: diphenhydrAMINE 50 MG/1 ML VIAL IV PRN ×3 (05:31→20:37)
[2020-11-09 05:54] LABS: Albumin 2.7 G/DL (3.4-5.0); Bilirubin,Total 0.5 MG/DL (0.2-1.0); Calcium 8.3 MG/DL (8.5-10.1); Potassium 3.9 MMOL/L (3.5-5.1); Total Protein 6.5 G/DL (6.4-8.2)
[2020-11-09] MEDS: APIXABAN 5 MG TABLET PO SCH ×2 (08:21→20:37)
[2020-11-09] MEDS: PANTOPRAZOLE 40 MG TABLET PO SCH (08:21)
[2020-11-09] MEDS: NICOTINE 21 MG/24 HR PATCH TRANSDERM SCH (08:21)
[2020-11-10] MEDS: SODIUM CHLORIDE 0.9% 1,000 ML IV SCH ×2 (00:05→05:19)
[2020-11-10] MEDS: HYDROmorphone 2 MG/1 ML VIAL IV PRN ×3 (00:15→06:04)
[2020-11-10] MEDS: diphenhydrAMINE 50 MG/1 ML VIAL IV PRN (03:28)
[2020-11-10] MEDS: hydrALAZINE 20 MG/1 ML VIAL IV PRN (03:39)
[2020-11-10 07:34] LABS: Basophils % 0.9 % (0.0-0.8); Eosinophils # 0.2 10*3/uL (0.0-0.87); Eosinophils % 3.4 % (0.00-10.9); Hematocrit 30.5 VOL% (42.0-52.0); Hemoglobin 10.1 GM/DL (14.0-18.0); Immature Granulocytes % 0.2 %; Immature Granulocytes Absolute 0.01 #; Lymphocytes # 1.7 10*3/uL (1.4-4.0); Mean Corpuscular HGB Conc 33.1 GM/DL (32-36); Mean Corpuscular Volume 92.4 FL (87-102); Mean Platelet Volume 9.9 FL (9.6-12.0); Neutrophils % 44.5 % (38.7-73.9); Platelet Count 247 T/CUMM (130-400); Red Cell Distribution Width 14.3 % (9.3-17.3); White Blood Count 4.7 T/CUMM (4-12)
[2020-11-10 07:35] LABS: Alanine Aminotransferase 38 U/L (16-61); Albumin 2.8 G/DL (3.4-5.0); Alkaline Phosphatase 89 U/L (45-117); Aspartate Amino Transferase 21 U/L (0-37); Bilirubin,Total < 0.39 MG/DL (0.2-1.0); Blood Urea Nitrogen 4 MG/DL (7-18); Calcium 8.7 MG/DL (8.5-10.1); Carbon Dioxide 25 MMOL/L (21-32); Estimated Glom Filtration Rate 129 ML/MIN; Glucose 98 MG/DL (74-106); Osmolality,Calculated 266.1 MOS/KG (273-304); Potassium 3.9 MMOL/L (3.5-5.1); Sodium 135 MMOL/L (136-145); Total Protein 6.5 G/DL (6.4-8.2)
[2020-11-10 09:29] VITALS: BP 143/99
[2020-11-10 09:38] LABS: Hypochromasia 1+; Platelet Estimate Normal; Target Cells Few
[2020-11-10] MEDS: PANTOPRAZOLE 40 MG TABLET PO SCH (10:12)
[2020-11-10] MEDS: APIXABAN 5 MG TABLET PO SCH (10:12)
[2020-11-10] MEDS: NICOTINE 21 MG/24 HR PATCH TRANSDERM SCH (10:13)
== END 2020-11-10 13:15 | disposition home or self-care (01) | DRG 392 ==
LOC: N.ED 08:53 → N.EDINP 12:10 → SUATTDRO 12:10 → N.EDINP 14:03 → N.3E 14:12
PROVIDERS: ADMIT Family Medicine; ATTEND Internal Medicine

== ENCOUNTER 2020-11-17 17:09 | Inpatient (IN) ==
[2020-11-17] MEDS ORDERED: SODIUM CHLORIDE 0.9% 1,000 ML IV STA (19:27)
[2020-11-17 20:38] LABS: Basophils # 0.1 10*3/uL (0.0-0.2); Basophils % 1.3 % (0.0-0.8); Eosinophils # 0.2 10*3/uL (0.0-0.87); Eosinophils % 3.6 % (0.00-10.9); Hematocrit 34.8 VOL% (42.0-52.0); Hemoglobin 11.6 GM/DL (14.0-18.0); Immature Granulocytes % 0.2 %; Immature Granulocytes Absolute 0.01 #; Lymphocytes # 1.8 10*3/uL (1.4-4.0); Lymphocytes % 31.7 % (21.2-54.2); Mean Corpuscular HGB Conc 33.3 GM/DL (32-36); Mean Corpuscular Volume 91.6 FL (87-102); Mean Platelet Volume 9.7 FL (9.6-12.0); Monocytes % 13.8 % (1.7-12.7); Neutrophils % 49.4 % (38.7-73.9); Platelet Count 421 T/CUMM (130-400); Red Cell Distribution Width 14.7 % (9.3-17.3); White Blood Count 5.5 T/CUMM (4-12)
[2020-11-17 21:05] LABS: Barbiturates Screen,Urine Negative (Negative); Benzodiazepines Screen,Urine Negative (Negative); Cannabinoid Screen,Urine Negative (Negative); Opiate Screen,Urine Negative (Negative); Phencyclidine Screen,Urine Negative (Negative)
[2020-11-17 21:41] LABS: Alanine Aminotransferase 61 U/L (16-61); Albumin 3.3 G/DL (3.4-5.0); Alkaline Phosphatase 90 U/L (45-117); Aspartate Amino Transferase 44 U/L (0-37); Bilirubin,Total < 0.39 MG/DL (0.2-1.0); Blood Urea Nitrogen 7 MG/DL (7-18); Calcium 8.6 MG/DL (8.5-10.1); Carbon Dioxide 24 MMOL/L (21-32); Estimated Glom Filtration Rate 124 ML/MIN; Glucose 98 MG/DL (74-106); Osmolality,Calculated 274.5 MOS/KG (273-304); Sodium 139 MMOL/L (136-145); Total Protein 6.7 G/DL (6.4-8.2)
[2020-11-17] MEDS ORDERED: ONDANSETRON 4 MG/2 ML VIAL ONE (21:55)
[2020-11-17] MEDS ORDERED: HYDROmorphone 2 MG/1 ML VIAL ONE (21:55)
[2020-11-18] MEDS ORDERED: HYDROmorphone 2 MG/1 ML VIAL ONE (00:15)
[2020-11-18] MEDS ORDERED: ONDANSETRON 4 MG/2 ML VIAL ONE (00:16)
[2020-11-18] MEDS ORDERED: HYDROmorphone 2 MG/1 ML VIAL IV STA ×2 (00:20→00:25)
[2020-11-18] MEDS ORDERED: ONDANSETRON 4 MG/2 ML VIAL IV STA ×2 (00:22→00:27)
[2020-11-18] MEDS ORDERED: ALUMINUM/MAGNES/SIMETH MAX STR 30 ML UDCUP PO PRN (02:08)
[2020-11-18] MEDS ORDERED: ONDANSETRON 4 MG/2 ML VIAL IV PRN (02:08)
[2020-11-18] MEDS ORDERED: NICOTINE 21 MG/24 HR PATCH TRANSDERM PRN (02:08)
[2020-11-18] MEDS: HYDROmorphone 2 MG/1 ML VIAL IV PRN ×4 (05:15→21:18)
[2020-11-18 05:27] LABS: Basophils # 0.1 10*3/uL (0.0-0.2); Basophils % 1.5 % (0.0-0.8); Eosinophils # 0.2 10*3/uL (0.0-0.87); Eosinophils % 2.5 % (0.00-10.9); Hematocrit 36.6 VOL% (42.0-52.0); Hemoglobin 12.1 GM/DL (14.0-18.0); Immature Granulocytes % 0.5 %; Immature Granulocytes Absolute 0.03 #; Lymphocytes # 2.2 10*3/uL (1.4-4.0); Mean Corpuscular HGB Conc 33.1 GM/DL (32-36); Mean Corpuscular Volume 91.7 FL (87-102); Mean Platelet Volume 9.7 FL (9.6-12.0); Monocytes % 9.2 % (1.7-12.7); Neutrophils % 50.3 % (38.7-73.9); Platelet Count 444 T/CUMM (130-400); Red Blood Count 3.99 MC/CUMM (3.8-5.5); Red Cell Distribution Width 14.5 % (9.3-17.3)
[2020-11-18 05:36] LABS: Albumin 3.4 G/DL (3.4-5.0); Bilirubin,Total 0.5 MG/DL (0.2-1.0); Calcium 9.2 MG/DL (8.5-10.1); Osmolality,Calculated 274.5 MOS/KG (273-304); Potassium 3.5 MMOL/L (3.5-5.1); Total Protein 7.8 G/DL (6.4-8.2)
[2020-11-18 05:48] LABS: Hypochromasia 1+; Microcytosis Slight; Platelet Estimate Increased
[2020-11-18] MEDS: SODIUM CHLORIDE 0.9% 1,000 ML IV SCH ×2 (05:59→14:33)
[2020-11-18] MEDS ORDERED: PANTOPRAZOLE 40 MG TABLET PO SCH (09:00)
[2020-11-18] MEDS: APIXABAN 5 MG TABLET PO SCH ×2 (09:32→21:15)
[2020-11-18] MEDS: PANTOPRAZOLE 40 MG TABLET PO SCH (09:32)
[2020-11-18] MEDS: carvediloL 6.25 MG TABLET PO SCH ×2 (09:32→21:15)
[2020-11-18] MEDS: NICOTINE 21 MG/24 HR PATCH TRANSDERM SCH (09:33)
[2020-11-18] MEDS: diphenhydrAMINE 50 MG/1 ML VIAL IV PRN ×2 (15:02→21:21)
[2020-11-18] MEDS ORDERED: LORazepam 2 MG/1 ML VIAL IV PRN (15:31)
[2020-11-19 05:59] LABS: Basophils # 0.1 10*3/uL (0.0-0.2); Basophils % 1.5 % (0.0-0.8); Eosinophils # 0.2 10*3/uL (0.0-0.87); Eosinophils % 4.4 % (0.00-10.9); Immature Granulocytes % 0.2 %; Immature Granulocytes Absolute 0.01 #; Lymphocytes # 1.7 10*3/uL (1.4-4.0); Lymphocytes % 36.2 % (21.2-54.2); Mean Corpuscular HGB Conc 32.7 GM/DL (32-36); Mean Corpuscular Volume 90.9 FL (87-102); Mean Platelet Volume 9.7 FL (9.6-12.0); Monocytes % 8.9 % (1.7-12.7); Neutrophils % 48.8 % (38.7-73.9); Platelet Count 380 T/CUMM (130-400); Red Cell Distribution Width 14.7 % (9.3-17.3); White Blood Count 4.7 T/CUMM (4-12)
[2020-11-19 06:08] LABS: Albumin 2.7 G/DL (3.4-5.0); Bilirubin,Total 0.5 MG/DL (0.2-1.0); Calcium 8.4 MG/DL (8.5-10.1); Osmolality,Calculated 273.5 MOS/KG (273-304); Potassium 3.7 MMOL/L (3.5-5.1); Risk Ratio 3.9; Total Protein 6.1 G/DL (6.4-8.2); VLDL CHOLESTEROL 11.6 MG/DL
[2020-11-19 06:13] LABS: Hemoglobin 9.8 GM/DL (14.0-18.0)
[2020-11-19 06:20] LABS: Eosinophils 9 % (0-10); Hypochromasia 1+; Lymphocytes 28 % (20-55); Microcytosis 1+; Platelet Estimate Adequate; Segmented Neutrophils 60 % (50-85); Total Cells Counted 100
[2020-11-19] MEDS: SODIUM CHLORIDE 0.9% 1,000 ML IV SCH ×3 (07:31→23:30)
[2020-11-19] MEDS: carvediloL 6.25 MG TABLET PO SCH ×2 (09:14→21:07)
[2020-11-19] MEDS: APIXABAN 5 MG TABLET PO SCH ×2 (09:14→22:12)
[2020-11-19] MEDS: PANTOPRAZOLE 40 MG TABLET PO SCH (09:14)
[2020-11-19] MEDS: NICOTINE 21 MG/24 HR PATCH TRANSDERM SCH (09:14)
[2020-11-19] MEDS: diphenhydrAMINE 50 MG/1 ML VIAL IV PRN ×3 (09:25→21:07)
[2020-11-19] MEDS: HYDROmorphone 2 MG/1 ML VIAL IV PRN ×3 (09:25→21:07)
[2020-11-19] MEDS ORDERED: hydrALAZINE 20 MG/1 ML VIAL IV PRN (16:43)
[2020-11-20] MEDS: HYDROmorphone 2 MG/1 ML VIAL IV PRN ×5 (01:11→22:10)
[2020-11-20 05:18] LABS: Basophils # 0.1 10*3/uL (0.0-0.2); Basophils % 1.3 % (0.0-0.8); Eosinophils # 0.2 10*3/uL (0.0-0.87); Eosinophils % 4.5 % (0.00-10.9); Hematocrit 29.4 VOL% (42.0-52.0); Hemoglobin 9.7 GM/DL (14.0-18.0); Immature Granulocytes % 0.4 %; Immature Granulocytes Absolute 0.02 #; Lymphocytes # 2.1 10*3/uL (1.4-4.0); Lymphocytes % 46.5 % (21.2-54.2); Mean Corpuscular Volume 90.2 FL (87-102); Mean Platelet Volume 9.6 FL (9.6-12.0); Monocytes % 10.8 % (1.7-12.7); Neutrophils % 36.5 % (38.7-73.9); Platelet Count 363 T/CUMM (130-400); Red Blood Count 3.26 MC/CUMM (3.8-5.5); Red Cell Distribution Width 14.6 % (9.3-17.3); White Blood Count 4.5 T/CUMM (4-12)
[2020-11-20 05:41] LABS: Eosinophils 9 % (0-10); Hypochromasia 1+; Lymphocytes 46 % (20-55); Platelet Estimate Adequate; Segmented Neutrophils 43 % (50-85); Total Cells Counted 100
[2020-11-20 05:42] LABS: Microcytosis Slight
[2020-11-20 05:54] LABS: Albumin 2.9 G/DL (3.4-5.0); Bilirubin,Total 0.5 MG/DL (0.2-1.0); Calcium 8.6 MG/DL (8.5-10.1); Osmolality,Calculated 274.5 MOS/KG (273-304); Total Protein 6.5 G/DL (6.4-8.2)
[2020-11-20] MEDS: carvediloL 6.25 MG TABLET PO SCH ×2 (09:09→20:21)
[2020-11-20] MEDS: PANTOPRAZOLE 40 MG TABLET PO SCH (09:09)
[2020-11-20] MEDS: APIXABAN 5 MG TABLET PO SCH ×2 (09:09→20:21)
[2020-11-20] MEDS: NICOTINE 21 MG/24 HR PATCH TRANSDERM SCH (09:09)
[2020-11-20] MEDS: diphenhydrAMINE 50 MG/1 ML VIAL IV PRN ×3 (09:13→22:10)
[2020-11-20] MEDS: LACTATED RINGERS 1,000 ML IV SCH (12:29)
[2020-11-20] MEDS ORDERED: propofoL 200 MG/20 ML VIAL IV ONE (13:26)
[2020-11-20] MEDS ORDERED: LIDOCAINE 2% 5 ML VIAL ONE (13:26)
[2020-11-20] MEDS: SODIUM CHLORIDE 0.9% 1,000 ML IV SCH (15:29)
[2020-11-21] MEDS: HYDROmorphone 2 MG/1 ML VIAL IV PRN (03:57)
[2020-11-21 05:23] LABS: Basophils # 0.1 10*3/uL (0.0-0.2); Basophils % 1.6 % (0.0-0.8); Eosinophils # 0.2 10*3/uL (0.0-0.87); Eosinophils % 4.7 % (0.00-10.9); Hematocrit 31.8 VOL% (42.0-52.0); Hemoglobin 10.2 GM/DL (14.0-18.0); Immature Granulocytes % 0.2 %; Immature Granulocytes Absolute 0.01 #; Lymphocytes # 2.2 10*3/uL (1.4-4.0); Lymphocytes % 42.7 % (21.2-54.2); Mean Corpuscular HGB Conc 32.1 GM/DL (32-36); Mean Corpuscular Volume 91.9 FL (87-102); Mean Platelet Volume 9.6 FL (9.6-12.0); Monocytes % 8.7 % (1.7-12.7); Neutrophils % 42.1 % (38.7-73.9); Platelet Count 381 T/CUMM (130-400); Red Blood Count 3.46 MC/CUMM (3.8-5.5); Red Cell Distribution Width 14.8 % (9.3-17.3); White Blood Count 5.1 T/CUMM (4-12)
[2020-11-21] MEDS: LACTATED RINGERS 1,000 ML IV SCH (08:00)
[2020-11-21] MEDS: carvediloL 6.25 MG TABLET PO SCH (09:56)
[2020-11-21] MEDS: APIXABAN 5 MG TABLET PO SCH (09:56)
[2020-11-21] MEDS: PANTOPRAZOLE 40 MG TABLET PO SCH (09:57)
[2020-11-21] MEDS: NICOTINE 21 MG/24 HR PATCH TRANSDERM SCH (09:57)
[2020-11-21 11:08] VITALS: BP 151/90
== END 2020-11-21 11:52 | disposition home or self-care (01) | DRG 439 ==
LOC: N.ED 17:09 → SUATTDRO 11-18 02:08 → N.EDINP 11-18 02:08 → N.3E 11-18 02:22
PROVIDERS: ADMIT Family Medicine; ATTEND Emergency Medicine

== ENCOUNTER 2020-12-12 17:52 | Inpatient (IN) ==
[2020-12-12 18:14] LABS: Basophils % 0.6 % (0.0-0.8); Eosinophils # 0.1 10*3/uL (0.0-0.87); Eosinophils % 0.9 % (0.00-10.9); Hematocrit 36.8 VOL% (42.0-52.0); Hemoglobin 12.1 GM/DL (14.0-18.0); Immature Granulocytes % 0.1 %; Immature Granulocytes Absolute 0.01 #; Lymphocytes # 2.1 10*3/uL (1.4-4.0); Lymphocytes % 30.5 % (21.2-54.2); Mean Corpuscular HGB Conc 32.9 GM/DL (32-36); Mean Corpuscular Volume 85.6 FL (87-102); Mean Platelet Volume 9.4 FL (9.6-12.0); Monocytes % 11.9 % (1.7-12.7); Platelet Count 249 T/CUMM (130-400); Red Cell Distribution Width 15.7 % (9.3-17.3); White Blood Count 6.8 T/CUMM (4-12)
[2020-12-12 18:28] LABS: INR 1.2; PT Patient Result 12.9 SECS (10.5-12.0); Partial Thromboplastin Time 31.7 SECS (23.9-33.8)
[2020-12-12 18:32] LABS: Albumin 3.9 G/DL (3.4-5.0); Bilirubin,Total 0.5 MG/DL (0.2-1.0); Calcium 8.8 MG/DL (8.5-10.1); Potassium 3.7 MMOL/L (3.5-5.1); Total Protein 7.7 G/DL (6.4-8.2)
[2020-12-12] MEDS ORDERED: ONDANSETRON 4 MG/2 ML VIAL IV ONE (19:02)
[2020-12-12] MEDS ORDERED: SODIUM CHLORIDE 0.9% 1,000 ML IV STA (19:02)
[2020-12-12] MEDS ORDERED: fentaNYL 100 MCG/2 ML VIAL IV STA (19:02)
[2020-12-12] MEDS ORDERED: ONDANSETRON 4 MG/2 ML VIAL IV PRN (22:15)
[2020-12-12] MEDS ORDERED: MAGNESIUM SULF RIDER 2 GM/50 ML PREMIX IV ONE (22:17)
[2020-12-12] MEDS ORDERED: LORazepam 2 MG/1 ML VIAL IV PRN (22:18)
[2020-12-12] MEDS ORDERED: hydrALAZINE 20 MG/1 ML VIAL IV PRN (22:19)
[2020-12-12] MEDS: HYDROmorphone 2 MG/1 ML VIAL IV PRN (22:30)
[2020-12-13] MEDS: ENOXAPARIN 60 MG/0.6 ML SYRINGE SUBCUT SCH ×3 (01:11→23:51)
[2020-12-13] MEDS: PIPERACILLIN/TAZOBACTAM 3,375 MG in SODIUM CHLORIDE 0.9% 100 ML IV SCH ×3 (01:13→16:47)
[2020-12-13] MEDS: SODIUM CHLORIDE 0.9% 1,000 ML IV SCH ×4 (01:13→23:51)
[2020-12-13] MEDS: PANTOPRAZOLE 40 MG VIAL IV SCH ×3 (01:13→20:42)
[2020-12-13] MEDS: HYDROmorphone 2 MG/1 ML VIAL IV PRN ×5 (02:52→23:48)
[2020-12-13 06:05] LABS: Barbiturates Screen,Urine Negative (Negative); Benzodiazepines Screen,Urine Negative (Negative); Cannabinoid Screen,Urine Negative (Negative); Opiate Screen,Urine Positive (Negative); Phencyclidine Screen,Urine Negative (Negative)
[2020-12-13 06:11] LABS: Basophils % 0.3 % (0.0-0.8); Eosinophils % 0.3 % (0.00-10.9); Hematocrit 31.3 VOL% (42.0-52.0); Hemoglobin 10.4 GM/DL (14.0-18.0); Immature Granulocytes % 0.3 %; Immature Granulocytes Absolute 0.02 #; Lymphocytes # 1.1 10*3/uL (1.4-4.0); Lymphocytes % 15.6 % (21.2-54.2); Mean Corpuscular HGB Conc 33.2 GM/DL (32-36); Mean Corpuscular Volume 85.8 FL (87-102); Mean Platelet Volume 10.2 FL (9.6-12.0); Monocytes % 8.6 % (1.7-12.7); Neutrophils % 74.9 % (38.7-73.9); Platelet Count 193 T/CUMM (130-400); Red Blood Count 3.65 MC/CUMM (3.8-5.5); Red Cell Distribution Width 15.8 % (9.3-17.3); White Blood Count 7.3 T/CUMM (4-12)
[2020-12-13 06:33] LABS: Albumin 3.2 G/DL (3.4-5.0); Bilirubin,Total 0.8 MG/DL (0.2-1.0); Osmolality,Calculated 271.7 MOS/KG (273-304); Potassium 3.4 MMOL/L (3.5-5.1); Total Protein 6.8 G/DL (6.4-8.2)
[2020-12-13] MEDS ORDERED: POTASSIUM CHLORIDE 20 MEQ TABLET PO PRN (08:54)
[2020-12-13] MEDS ORDERED: THIAMINE 200 MG/2 ML VIAL IV SCH (09:00)
[2020-12-13] MEDS ORDERED: FOLIC ACID INJ 1 MG in SYRINGE 1 EACH IV SCH (09:00)
[2020-12-13] MEDS: FOLIC ACID INJ 1 MG in SODIUM CHLORIDE 0.9% 50 ML IV SCH (10:26)
[2020-12-13] MEDS: THIAMINE INJ 100 MG in SODIUM CHLORIDE 0.9% 50 ML IV SCH (11:31)
[2020-12-14] MEDS: PIPERACILLIN/TAZOBACTAM 3,375 MG in SODIUM CHLORIDE 0.9% 100 ML IV SCH ×3 (00:19→18:52)
[2020-12-14] MEDS: diphenhydrAMINE CAP 25 MG CAPSULE PO PRN ×2 (03:16→20:43)
[2020-12-14 06:28] LABS: Basophils % 0.6 % (0.0-0.8); Eosinophils # 0.2 10*3/uL (0.0-0.87); Eosinophils % 3.1 % (0.00-10.9); Lymphocytes # 1.5 10*3/uL (1.4-4.0); Lymphocytes % 30.1 % (21.2-54.2); Mean Corpuscular HGB Conc 33.3 GM/DL (32-36); Mean Corpuscular Volume 85.7 FL (87-102); Mean Platelet Volume 10.1 FL (9.6-12.0); Monocytes % 12.1 % (1.7-12.7); Neutrophils % 54.1 % (38.7-73.9); Platelet Count 201 T/CUMM (130-400); Red Cell Distribution Width 15.6 % (9.3-17.3); White Blood Count 4.8 T/CUMM (4-12)
[2020-12-14 06:43] LABS: Calcium 8.3 MG/DL (8.5-10.1); Osmolality,Calculated 264.2 MOS/KG (273-304); Potassium 3.7 MMOL/L (3.5-5.1)
[2020-12-14] MEDS: FOLIC ACID INJ 1 MG in SODIUM CHLORIDE 0.9% 50 ML IV SCH (09:47)
[2020-12-14] MEDS: PANTOPRAZOLE 40 MG VIAL IV SCH ×2 (09:55→20:43)
[2020-12-14] MEDS: ENOXAPARIN 60 MG/0.6 ML SYRINGE SUBCUT SCH ×2 (09:56→22:16)
[2020-12-14] MEDS: THIAMINE INJ 100 MG in SODIUM CHLORIDE 0.9% 50 ML IV SCH (10:16)
[2020-12-14] MEDS: HYDROmorphone 2 MG/1 ML VIAL IV PRN (18:51)
[2020-12-15] MEDS: PIPERACILLIN/TAZOBACTAM 3,375 MG in SODIUM CHLORIDE 0.9% 100 ML IV SCH ×3 (00:21→16:19)
[2020-12-15] MEDS: SODIUM CHLORIDE 0.9% 1,000 ML IV SCH ×6 (00:23→21:59)
[2020-12-15] MEDS: HYDROmorphone 2 MG/1 ML VIAL IV PRN ×4 (00:32→20:54)
[2020-12-15] MEDS: diphenhydrAMINE CAP 25 MG CAPSULE PO PRN ×4 (02:15→20:51)
[2020-12-15 04:54] LABS: Basophils % 0.3 % (0.0-0.8); Eosinophils # 0.3 10*3/uL (0.0-0.87); Eosinophils % 3.7 % (0.00-10.9); Hematocrit 30.2 VOL% (42.0-52.0); Hemoglobin 9.9 GM/DL (14.0-18.0); Immature Granulocytes % 0.4 %; Immature Granulocytes Absolute 0.03 #; Lymphocytes # 2.2 10*3/uL (1.4-4.0); Lymphocytes % 30.5 % (21.2-54.2); Mean Corpuscular HGB Conc 32.8 GM/DL (32-36); Mean Corpuscular Volume 86.8 FL (87-102); Mean Platelet Volume 10.2 FL (9.6-12.0); Neutrophils % 54.1 % (38.7-73.9); Platelet Count 214 T/CUMM (130-400); Red Blood Count 3.48 MC/CUMM (3.8-5.5); Red Cell Distribution Width 15.9 % (9.3-17.3); White Blood Count 7.1 T/CUMM (4-12)
[2020-12-15 05:11] LABS: Calcium 8.5 MG/DL (8.5-10.1); Osmolality,Calculated 268.2 MOS/KG (273-304); Potassium 3.4 MMOL/L (3.5-5.1)
[2020-12-15] MEDS: PANTOPRAZOLE 40 MG VIAL IV SCH ×2 (08:58→20:55)
[2020-12-15] MEDS: THIAMINE 100 MG TABLET PO SCH (09:00)
[2020-12-15] MEDS: ENOXAPARIN 60 MG/0.6 ML SYRINGE SUBCUT SCH ×2 (10:00→21:58)
[2020-12-15] MEDS: FOLIC ACID INJ 1 MG in SODIUM CHLORIDE 0.9% 50 ML IV SCH (11:42)
[2020-12-15] MEDS: NICOTINE 21 MG/24 HR PATCH TRANSDERM SCH (16:19)
[2020-12-15] MEDS: buPROPion SR 100 MG TABLET PO SCH (20:51)
[2020-12-16] MEDS: PIPERACILLIN/TAZOBACTAM 3,375 MG in SODIUM CHLORIDE 0.9% 100 ML IV SCH ×2 (00:30→08:52)
[2020-12-16] MEDS: HYDROmorphone 2 MG/1 ML VIAL IV PRN ×4 (01:14→14:02)
[2020-12-16] MEDS: diphenhydrAMINE CAP 25 MG CAPSULE PO PRN (03:20)
[2020-12-16 04:44] LABS: Basophils % 0.3 % (0.0-0.8); Eosinophils # 0.2 10*3/uL (0.0-0.87); Eosinophils % 2.6 % (0.00-10.9); Hematocrit 34.9 VOL% (42.0-52.0); Hemoglobin 11.2 GM/DL (14.0-18.0); Immature Granulocytes % 0.2 %; Immature Granulocytes Absolute 0.01 #; Lymphocytes # 2.2 10*3/uL (1.4-4.0); Lymphocytes % 33.1 % (21.2-54.2); Mean Corpuscular HGB Conc 32.1 GM/DL (32-36); Mean Corpuscular Volume 87.7 FL (87-102); Mean Platelet Volume 9.9 FL (9.6-12.0); Monocytes % 9.5 % (1.7-12.7); Neutrophils % 54.3 % (38.7-73.9); Platelet Count 234 T/CUMM (130-400); Red Blood Count 3.98 MC/CUMM (3.8-5.5); Red Cell Distribution Width 16.2 % (9.3-17.3); White Blood Count 6.6 T/CUMM (4-12)
[2020-12-16] MEDS: SODIUM CHLORIDE 0.9% 1,000 ML IV SCH (04:45)
[2020-12-16 05:10] LABS: Calcium 8.6 MG/DL (8.5-10.1); Osmolality,Calculated 265.1 MOS/KG (273-304); Potassium 3.8 MMOL/L (3.5-5.1)
[2020-12-16] MEDS: ENOXAPARIN 60 MG/0.6 ML SYRINGE SUBCUT SCH (08:50)
[2020-12-16] MEDS: buPROPion SR 100 MG TABLET PO SCH (08:51)
[2020-12-16] MEDS: NICOTINE 21 MG/24 HR PATCH TRANSDERM SCH (08:51)
[2020-12-16] MEDS: THIAMINE 100 MG TABLET PO SCH (08:51)
[2020-12-16] MEDS ORDERED: PANTOPRAZOLE 40 MG TABLET PO SCH (09:00)
[2020-12-16] MEDS ORDERED: MAGNESIUM HYDROXIDE SUSP 30 ML UDCUP PO ONE (11:00)
[2020-12-16] MEDS ORDERED: BISACODYL 10 MG SUPP RECTAL ONE (11:00)
[2020-12-16] MEDS: FOLIC ACID INJ 1 MG in SODIUM CHLORIDE 0.9% 50 ML IV SCH (11:32)
[2020-12-16 11:38] VITALS: BP 159/96
[2020-12-16] MEDS ORDERED: MINERAL OIL ENEMA 133 ML BOTTLE RECTAL ONE (15:00)
[2020-12-16] MEDS ORDERED: DOCUSATE/SENNA 50-8.6 MG TABLET PO PRN (15:37)
[2020-12-16] MEDS ORDERED: DOCUSATE SODIUM 100 MG CAPSULE PO SCH (21:00)
[2020-12-16] MEDS ORDERED: POLYETHYLENE GLYCOL POWDER 17 GM PACK PO SCH (21:00)
[2020-12-17] MEDS ORDERED: FOLIC ACID 1 MG TABLET PO SCH (09:00)
== END 2020-12-16 16:45 | disposition home or self-care (01) | DRG 439 ==
LOC: N.ED 17:52 → N.EDINP 22:13 → N.5E 12-13 00:07
PROVIDERS: ADMIT Hospitalist; ATTEND Hospitalist

== ENCOUNTER 2021-02-07 15:23 | Observation (INO) ==
[2021-02-07] MEDS ORDERED: PANTOPRAZOLE 40 MG VIAL IV STA (16:39)
[2021-02-07] MEDS ORDERED: ONDANSETRON 4 MG/2 ML VIAL IV STA (16:39)
[2021-02-07] MEDS ORDERED: SODIUM CHLORIDE 0.9% 1,000 ML IV STA (16:39)
[2021-02-07] MEDS ORDERED: KETOROLAC 30 MG/1 ML VIAL IV STA (16:39)
[2021-02-07] MEDS ORDERED: methylPREDNISolone SOD SUC 125 MG/2 ML VIAL IV STA (16:42)
[2021-02-07] MEDS ORDERED: ALBUTEROL/IPRATROPIUM 3 ML NEB RESP TX STA (16:43)
[2021-02-07 16:49] LABS: Basophils % 0.3 % (0.0-0.8); Eosinophils % 0.2 % (0.00-10.9); Hemoglobin 11.5 GM/DL (14.0-18.0); Immature Granulocytes % 0.9 %; Immature Granulocytes Absolute 0.06 #; Lymphocytes # 1.7 10*3/uL (1.4-4.0); Lymphocytes % 26.8 % (21.2-54.2); Mean Corpuscular HGB Conc 32.9 GM/DL (32-36); Mean Corpuscular Volume 82.4 FL (87-102); Mean Platelet Volume 10.1 FL (9.6-12.0); Monocytes % 12.3 % (1.7-12.7); NRBC # 0.02 10*3/uL; Neutrophils % 59.5 % (38.7-73.9); Platelet Count 194 T/CUMM (130-400); Red Blood Count 4.25 MC/CUMM (3.8-5.5); Red Cell Distribution Width 21.5 % (9.3-17.3); White Blood Count 6.4 T/CUMM (4-12)
[2021-02-07 17:19] LABS: Alanine Aminotransferase 144 U/L (16-61); Albumin 3.4 G/DL (3.4-5.0); Alkaline Phosphatase 99 U/L (45-117); Amylase 214 U/L (25-115); Aspartate Amino Transferase 208 U/L (0-37); Bilirubin,Total < 0.39 MG/DL (0.20-1.00); Blood Urea Nitrogen 8 MG/DL (7-18); Calcium 8.8 MG/DL (8.5-10.1); Carbon Dioxide 23 MMOL/L (21-32); Estimated Glom Filtration Rate 125 ML/MIN; Glucose 114 MG/DL (74-106); Potassium 3.7 MMOL/L (3.5-5.1); Sodium 136 MMOL/L (136-145); Total Protein 7.5 G/DL (6.4-8.2)
[2021-02-07 18:26] LABS: Bilirubin,Urine Negative (Negative); Blood, Urine Negative (Negative); Glucose,Urine (UA) Negative (Negative); Ketones,Urine 5 mg/dL (Negative); Mucus,Urine Few /LPF (Occasional); Nitrite,Urine Negative (Negative); Protein,Urine 100 MG/DL; RBC,Urine 5 /HPF (0-4); Squamous Epithelial Cell,Urine Occasional /HPF (0-10); Urine Appearance CLEAR (Clear); Urine Color Yellow (Yellow); Urine Specific Gravity 1.023 (1.001-1.035)
[2021-02-07] MEDS ORDERED: HYDROmorphone 2 MG/1 ML VIAL IV STA (19:26)
[2021-02-07] MEDS ORDERED: DEXTROSE 50% 25 GM/50 ML VIAL IV PRN (20:06)
[2021-02-07] MEDS ORDERED: GLUCAGON 1 MG VIAL IM PRN (20:06)
[2021-02-07] MEDS ORDERED: DOCUSATE SODIUM 100 MG CAPSULE PO PRN (20:13)
[2021-02-07] MEDS ORDERED: ZALEPLON 5 MG CAPSULE PO PRN (20:13)
[2021-02-07] MEDS ORDERED: ONDANSETRON 4 MG/2 ML VIAL IV PRN (20:13)
[2021-02-07] MEDS ORDERED: LACTULOSE 20 GM/30 ML UDCUP PO PRN (20:13)
[2021-02-07] MEDS ORDERED: LEVOFLOXACIN INJ 500 MG/100 ML PREMIX IV SCH (20:30)
[2021-02-07] MEDS ORDERED: APIXABAN 5 MG TABLET PO SCH (21:00)
[2021-02-07] MEDS ORDERED: methylPREDNISolone SOD SUC 40 MG/1 ML VIAL IV SCH (21:00)
[2021-02-07] MEDS ORDERED: BUDESONIDE/FORMOTEROL 160-4.5 INHALER 6 GM INH SCH (21:00)
[2021-02-07] MEDS ORDERED: chlordiazePOXIDE 25 MG CAPSULE PO SCH (21:00)
[2021-02-07] MEDS ORDERED: THIAMINE 200 MG/2 ML VIAL IV SCH (21:00)
[2021-02-07] MEDS ORDERED: NICOTINE 21 MG/24 HR PATCH TRANSDERM PRN (21:09)
[2021-02-07] MEDS: DEXTROSE 5% NACL 0.9% 1,000 ML IV SCH (22:48)
[2021-02-07] MEDS: HYDROmorphone 2 MG/1 ML VIAL IV PRN (22:58)
[2021-02-08] MEDS ORDERED: diphenhydrAMINE CAP 25 MG CAPSULE PO PRN (00:12)
[2021-02-08] MEDS: ALBUTEROL INHALER 18 GM INH SCH ×2 (00:52→06:27)
[2021-02-08] MEDS: HYDROmorphone 2 MG/1 ML VIAL IV PRN ×2 (02:42→06:31)
[2021-02-08 04:04] VITALS: BP 138/92
[2021-02-08 04:29] LABS: Hematocrit 30.5 VOL% (42.0-52.0); Hemoglobin 9.6 GM/DL (14.0-18.0); Immature Granulocytes % 1.5 %; Immature Granulocytes Absolute 0.07 #; Lymphocytes # 0.5 10*3/uL (1.4-4.0); Mean Corpuscular HGB Conc 31.5 GM/DL (32-36); Mean Corpuscular Volume 86.6 FL (87-102); Mean Platelet Volume 10.1 FL (9.6-12.0); NRBC # 0.02 10*3/uL; Neutrophils % 85.5 % (38.7-73.9); Platelet Count 212 T/CUMM (130-400); Red Blood Count 3.52 MC/CUMM (3.8-5.5); Red Cell Distribution Width 21.2 % (9.3-17.3); White Blood Count 4.6 T/CUMM (4-12)
[2021-02-08 05:08] LABS: Ferritin 99.4 ng/mL (26-388)
[2021-02-08 05:17] LABS: Albumin 3.1 G/DL (3.4-5.0); Bilirubin,Total 0.4 MG/DL (0.20-1.00); Osmolality,Calculated 277.4 MOS/KG (273-304); Potassium 4.7 MMOL/L (3.5-5.1); Total Protein 7.2 G/DL (6.4-8.2)
[2021-02-08 06:26] LABS: Anisocytosis 2+; Macrocytosis Slight; Platelet Estimate Normal
[2021-02-08] MEDS: DEXTROSE 5% NACL 0.9% 1,000 ML IV SCH (07:54)
[2021-02-08] MEDS ORDERED: SODIUM CHLORIDE 0.9% 1,000 ML IV SCH (08:00)
[2021-02-08] MEDS ORDERED: PANTOPRAZOLE 40 MG VIAL IV SCH (09:00)
== END 2021-02-08 08:27 | disposition left against medical advice (07) ==
LOC: N.ED 15:23 → N.EDINP 15:23 → N.2E 21:05
PROVIDERS: ADMIT Hospitalist; ATTEND Hospitalist

== ENCOUNTER 2021-02-09 08:24 | Inpatient (IN) ==
[2021-02-09] MEDS ORDERED: ASPIRIN 325 MG TABLET PO STA (08:50)
[2021-02-09] MEDS ORDERED: ALBUTEROL 2.5 MG/3 ML NEB RESP TX STA (08:51)
[2021-02-09 08:59] LABS: Basophils % 0.1 % (0.0-0.8); Hemoglobin 10.7 GM/DL (14.0-18.0); Immature Granulocytes % 4.1 %; Immature Granulocytes Absolute 0.33 #; Lymphocytes # 1.6 10*3/uL (1.4-4.0); Lymphocytes % 19.5 % (21.2-54.2); Mean Corpuscular HGB Conc 30.6 GM/DL (32-36); Mean Corpuscular Volume 87.5 FL (87-102); Mean Platelet Volume 9.6 FL (9.6-12.0); Monocytes % 7.9 % (1.7-12.7); NRBC # 0.05 10*3/uL; Neutrophils % 68.4 % (38.7-73.9); Platelet Count 292 T/CUMM (130-400); Red Cell Distribution Width 21.4 % (9.3-17.3); White Blood Count 8.1 T/CUMM (4-12)
[2021-02-09] MEDS ORDERED: SODIUM CHLORIDE 0.9% 1,000 ML IV STA (09:13)
[2021-02-09 09:21] LABS: Alanine Aminotransferase 101 U/L (16-61); Albumin 3.4 G/DL (3.4-5.0); Alkaline Phosphatase 99 U/L (45-117); Aspartate Amino Transferase 89 U/L (0-37); Bilirubin,Total < 0.39 MG/DL (0.20-1.00); Blood Urea Nitrogen 7 MG/DL (7-18); Calcium 9.3 MG/DL (8.5-10.1); Carbon Dioxide 27 MMOL/L (21-32); Estimated Glom Filtration Rate 122 ML/MIN; Glucose 159 MG/DL (74-106); Osmolality,Calculated 277.5 MOS/KG (273-304); Potassium 4.2 MMOL/L (3.5-5.1); Sodium 139 MMOL/L (136-145); Total Protein 7.1 G/DL (6.4-8.2)
[2021-02-09 09:31] LABS: Lymphocytes 29 % (20-55); Segmented Neutrophils 70 % (50-85); Total Cells Counted 100
[2021-02-09 09:37] LABS: Polychromasia Few
[2021-02-09] MEDS ORDERED: HYDROmorphone 2 MG/1 ML VIAL IV STA ×2 (09:37→11:05)
[2021-02-09 09:40] LABS: Platelet Estimate Adequate
[2021-02-09] MEDS ORDERED: ONDANSETRON 4 MG/2 ML VIAL ONE (09:40)
[2021-02-09 09:41] LABS: Hypochromasia 1+
[2021-02-09 09:44] LABS: Atypical Lymphocytes Few; Microcytosis 1+
[2021-02-09] MEDS ORDERED: ONDANSETRON 4 MG/2 ML VIAL IV STA (09:44)
[2021-02-09] MEDS ORDERED: hydrALAZINE 20 MG/1 ML VIAL IV PRN (10:54)
[2021-02-09] MEDS ORDERED: ONDANSETRON 4 MG/2 ML VIAL IV PRN (10:54)
[2021-02-09] MEDS ORDERED: DEXTROSE 50% 25 GM/50 ML VIAL IV PRN (10:54)
[2021-02-09] MEDS ORDERED: GLUCAGON 1 MG VIAL IM PRN (10:54)
[2021-02-09] MEDS ORDERED: DOCUSATE SODIUM 100 MG CAPSULE PO PRN (10:54)
[2021-02-09] MEDS ORDERED: ACETAMINOPHEN 325 MG TABLET PO PRN (10:54)
[2021-02-09] MEDS ORDERED: ALUMINUM/MAGNES/SIMETH MAX STR 30 ML UDCUP PO PRN (10:54)
[2021-02-09] MEDS ORDERED: HYDROmorphone 2 MG/1 ML VIAL IV PRN (11:00)
[2021-02-09] MEDS ORDERED: ENOXAPARIN 40 MG/0.4 ML SYRINGE SUBCUT SCH (11:00)
[2021-02-09] MEDS ORDERED: MELATONIN 3 MG TABLET PO PRN (11:02)
[2021-02-09 11:08] LABS: Bilirubin,Urine Negative (Negative); Blood, Urine Negative (Negative); Glucose,Urine (UA) Negative (Negative); Ketones,Urine Negative (Negative); Mucus,Urine Occasional /LPF (Occasional); Nitrite,Urine Negative (Negative); Protein,Urine 30 MG/DL; RBC,Urine 2 /HPF (0-4); Squamous Epithelial Cell,Urine Occasional /HPF (0-10); Urine Appearance CLEAR (Clear); Urine Color Yellow (Yellow); Urine Specific Gravity 1.014 (1.001-1.035)
[2021-02-09 11:16] LABS: Barbiturates Screen,Urine Negative (Negative); Benzodiazepines Screen,Urine Positive (Negative); Cannabinoid Screen,Urine Negative (Negative); Opiate Screen,Urine Positive (Negative); Phencyclidine Screen,Urine Negative (Negative)
[2021-02-09] MEDS ORDERED: chlordiazePOXIDE 10 MG CAPSULE PO PRN (11:37)
[2021-02-09] MEDS: SODIUM CHLORIDE 0.9% 1,000 ML IV SCH (12:50)
[2021-02-09] MEDS ORDERED: ALBUTEROL/IPRATROPIUM 3 ML NEB RESP TX SCH (13:00)
[2021-02-09] MEDS: LORazepam 2 MG/1 ML VIAL IV PRN ×2 (13:29→17:32)
[2021-02-09] MEDS: HYDROmorphone 2 MG/1 ML VIAL IV PRN ×2 (13:30→17:26)
[2021-02-09] MEDS: INSULIN LISPRO 100 UNIT/ML SUBCUT SCH ×3 (13:35→23:39)
[2021-02-09] MEDS ORDERED: chlordiazePOXIDE 10 MG CAPSULE PO SCH (15:00)
[2021-02-09] MEDS: ASCORBIC ACID 500 MG TABLET PO SCH (20:30)
[2021-02-09] MEDS: FAMOTIDINE 20 MG TABLET PO SCH (20:30)
[2021-02-09] MEDS: NICOTINE 21 MG/24 HR PATCH TRANSDERM SCH (21:00)
[2021-02-10] MEDS: SODIUM CHLORIDE 0.9% 1,000 ML IV SCH ×3 (02:07→10:28)
[2021-02-10] MEDS: HYDROmorphone 2 MG/1 ML VIAL IV PRN ×2 (02:07→08:28)
[2021-02-10 06:01] LABS: Eosinophils % 0.2 % (0.00-10.9); Hematocrit 30.7 VOL% (42.0-52.0); Hemoglobin 9.6 GM/DL (14.0-18.0); Immature Granulocytes % 1.4 %; Immature Granulocytes Absolute 0.08 #; Lymphocytes # 1.6 10*3/uL (1.4-4.0); Lymphocytes % 28.6 % (21.2-54.2); Mean Corpuscular HGB Conc 31.3 GM/DL (32-36); Mean Corpuscular Volume 86.7 FL (87-102); Mean Platelet Volume 10.2 FL (9.6-12.0); Monocytes % 13.7 % (1.7-12.7); NRBC # 0.03 10*3/uL; Neutrophils % 56.1 % (38.7-73.9); Platelet Count 275 T/CUMM (130-400); Red Blood Count 3.54 MC/CUMM (3.8-5.5); Red Cell Distribution Width 21.5 % (9.3-17.3); White Blood Count 5.7 T/CUMM (4-12)
[2021-02-10 06:23] LABS: Hypochromasia 1+; Lymphocytes 28 % (20-55); Microcytosis 1+; Platelet Estimate Adequate; Segmented Neutrophils 62 % (50-85); Total Cells Counted 100
[2021-02-10 06:43] LABS: Albumin 2.9 G/DL (3.4-5.0); Bilirubin,Total 0.8 MG/DL (0.20-1.00); Calcium 8.1 MG/DL (8.5-10.1); Osmolality,Calculated 267.1 MOS/KG (273-304); Potassium 3.6 MMOL/L (3.5-5.1); Total Protein 6.6 G/DL (6.4-8.2)
[2021-02-10] MEDS: INSULIN LISPRO 100 UNIT/ML SUBCUT SCH ×2 (06:54→13:16)
[2021-02-10] MEDS: FAMOTIDINE 20 MG TABLET PO SCH (08:17)
[2021-02-10] MEDS: NICOTINE 21 MG/24 HR PATCH TRANSDERM SCH (08:17)
[2021-02-10] MEDS: ASCORBIC ACID 500 MG TABLET PO SCH (08:17)
[2021-02-10] MEDS ORDERED: ZINC GLUCONATE 50 MG TABLET PO SCH (09:00)
[2021-02-10] MEDS ORDERED: CETIRIZINE 10 MG TABLET PO SCH (09:00)
[2021-02-10] MEDS ORDERED: DEXAMETHASONE 4 MG/1 ML VIAL IV SCH (09:00)
[2021-02-10] MEDS ORDERED: CHOLECALCIFEROL 1,000 UNIT TABLET PO SCH (09:00)
[2021-02-10 14:13] VITALS: BP 152/93
== END 2021-02-10 14:10 | disposition home or self-care (01) | DRG 438 ==
LOC: SUATTDRO → N.ED 08:24 → N.EDINP 10:56 → N.2E 12:35
PROVIDERS: ADMIT Internal Medicine; ATTEND Internal Medicine

== ENCOUNTER 2021-03-14 09:01 | Observation (INO) ==
[2021-03-14] MEDS ORDERED: SODIUM CHLORIDE 0.9% 1,000 ML IV STA (09:36)
[2021-03-14] MEDS ORDERED: ONDANSETRON 4 MG/2 ML VIAL IM STA (09:36)
[2021-03-14] MEDS ORDERED: HYDROmorphone 2 MG/1 ML VIAL IV STA (09:36)
[2021-03-14 09:58] LABS: Basophils % 0.3 % (0.0-0.8); Eosinophils # 0.1 10*3/uL (0.0-0.87); Eosinophils % 0.6 % (0.00-10.9); Hemoglobin 10.4 GM/DL (14.0-18.0); Immature Granulocytes % 0.3 %; Immature Granulocytes Absolute 0.03 #; Lymphocytes # 1.5 10*3/uL (1.4-4.0); Lymphocytes % 15.6 % (21.2-54.2); Mean Corpuscular HGB Conc 31.5 GM/DL (32-36); Mean Corpuscular Volume 84.8 FL (87-102); Monocytes % 8.9 % (1.7-12.7); Neutrophils % 74.3 % (38.7-73.9); Platelet Count 250 T/CUMM (130-400); Red Blood Count 3.89 MC/CUMM (3.8-5.5); Red Cell Distribution Width 18.6 % (9.3-17.3); White Blood Count 9.5 T/CUMM (4-12)
[2021-03-14 10:16] LABS: Alanine Aminotransferase 60 U/L (16-61); Albumin 3.6 G/DL (3.4-5.0); Alkaline Phosphatase 88 U/L (45-117); Aspartate Amino Transferase 64 U/L (0-37); Bilirubin,Total < 0.39 MG/DL (0.20-1.00); Blood Urea Nitrogen 7 MG/DL (7-18); Calcium 8.7 MG/DL (8.5-10.1); Carbon Dioxide 27 MMOL/L (21-32); Estimated Glom Filtration Rate 123 ML/MIN; Glucose 162 MG/DL (74-106); Osmolality,Calculated 267.4 MOS/KG (273-304); Potassium 3.8 MMOL/L (3.5-5.1); Sodium 133 MMOL/L (136-145); Total Protein 7.7 G/DL (6.4-8.2)
[2021-03-14] MEDS ORDERED: ACETAMINOPHEN 325 MG TABLET PO PRN (10:53)
[2021-03-14] MEDS ORDERED: GLUCAGON 1 MG VIAL IM PRN (10:53)
[2021-03-14] MEDS ORDERED: DEXTROSE 50% 25 GM/50 ML VIAL IV PRN (10:53)
[2021-03-14] MEDS ORDERED: ALBUTEROL 2.5 MG/3 ML NEB RESP TX PRN (11:00)
[2021-03-14] MEDS ORDERED: ONDANSETRON 4 MG/2 ML VIAL IV PRN (11:00)
[2021-03-14] MEDS ORDERED: NICOTINE 21 MG/24 HR PATCH TRANSDERM PRN (11:16)
[2021-03-14] MEDS: LACTATED RINGERS 1,000 ML IV SCH ×2 (12:33→20:25)
[2021-03-14] MEDS: HYDROmorphone 2 MG/1 ML VIAL IV PRN ×3 (13:00→21:13)
[2021-03-15] MEDS: HYDROmorphone 2 MG/1 ML VIAL IV PRN ×6 (00:41→22:49)
[2021-03-15 04:42] LABS: Basophils % 0.3 % (0.0-0.8); Eosinophils # 0.1 10*3/uL (0.0-0.87); Eosinophils % 1.4 % (0.00-10.9); Hematocrit 28.8 VOL% (42.0-52.0); Hemoglobin 8.8 GM/DL (14.0-18.0); Immature Granulocytes % 0.5 %; Immature Granulocytes Absolute 0.03 #; Lymphocytes # 1.4 10*3/uL (1.4-4.0); Lymphocytes % 23.6 % (21.2-54.2); Mean Corpuscular HGB Conc 30.6 GM/DL (32-36); Mean Corpuscular Volume 87.3 FL (87-102); Mean Platelet Volume 9.2 FL (9.6-12.0); Monocytes % 9.7 % (1.7-12.7); Neutrophils % 64.5 % (38.7-73.9); Platelet Count 214 T/CUMM (130-400); Red Cell Distribution Width 18.4 % (9.3-17.3); White Blood Count 5.8 T/CUMM (4-12)
[2021-03-15] MEDS: LACTATED RINGERS 1,000 ML IV SCH ×3 (07:24→22:04)
[2021-03-15] MEDS: FOLIC ACID 1 MG TABLET PO SCH (09:21)
[2021-03-15] MEDS: MULTIVITAMIN (BEROCCA) TABLET PO SCH (09:21)
[2021-03-15] MEDS: PANTOPRAZOLE 40 MG TABLET PO SCH (09:21)
[2021-03-15] MEDS: THIAMINE 100 MG TABLET PO SCH (09:21)
[2021-03-15] MEDS: CARBOXYMETHYLCELLULOSE 1% OPH SOLN BOTH EYES SCH (22:50)
[2021-03-16] MEDS: HYDROmorphone 2 MG/1 ML VIAL IV PRN ×2 (03:38→08:02)
[2021-03-16] MEDS: FOLIC ACID 1 MG TABLET PO SCH (08:26)
[2021-03-16] MEDS: THIAMINE 100 MG TABLET PO SCH (08:26)
[2021-03-16] MEDS: MULTIVITAMIN (BEROCCA) TABLET PO SCH (08:26)
[2021-03-16] MEDS: PANTOPRAZOLE 40 MG TABLET PO SCH (08:26)
[2021-03-16] MEDS: CARBOXYMETHYLCELLULOSE 1% OPH SOLN BOTH EYES SCH (08:29)
[2021-03-16 11:30] VITALS: BP 125/75
== END 2021-03-16 11:46 | disposition home or self-care (01) ==
LOC: N.ED 09:01 → N.EDINP 09:01 → SUATTDRO 10:52 → N.5E 12:11
PROVIDERS: ADMIT Internal Medicine Geriatric Medicine; ATTEND Internal Medicine

== ENCOUNTER 2021-06-01 15:52 | Observation (INO) ==
[2021-06-01] MEDS ORDERED: SODIUM CHLORIDE 0.9% 1,000 ML IV STA (21:04)
[2021-06-01] MEDS ORDERED: fentaNYL 100 MCG/2 ML VIAL IV STA (21:36)
[2021-06-01] MEDS ORDERED: ONDANSETRON 4 MG/2 ML VIAL IV STA (21:36)
[2021-06-01] MEDS ORDERED: ONDANSETRON 4 MG/2 ML VIAL ONE (21:37)
[2021-06-01] MEDS ORDERED: fentaNYL 100 MCG/2 ML VIAL ONE (21:38)
[2021-06-01 21:41] LABS: Basophils % 0.1 % (0.0-0.8); Eosinophils % 0.3 % (0.00-10.9); Immature Granulocytes % 0.3 %; Immature Granulocytes Absolute 0.02 #; Lymphocytes # 1.2 10*3/uL (1.4-4.0); Lymphocytes % 17.4 % (21.2-54.2); Mean Corpuscular HGB Conc 27.8 GM/DL (32-36); Mean Corpuscular Volume 73.6 FL (87-102); Mean Platelet Volume 9.6 FL (9.6-12.0); Monocytes % 10.9 % (1.7-12.7); NRBC # 0.02 10*3/uL; Platelet Count 317 T/CUMM (130-400); Red Blood Count 3.67 MC/CUMM (3.8-5.5); Red Cell Distribution Width 17.9 % (9.3-17.3); White Blood Count 7.1 T/CUMM (4-12)
[2021-06-01 21:53] LABS: Hemoglobin 7.5 GM/DL (14.0-18.0)
[2021-06-01 22:01] LABS: Albumin 4.2 G/DL (3.4-5.0); Bilirubin,Total 0.8 MG/DL (0.20-1.00); Calcium 9.4 MG/DL (8.5-10.1); Osmolality,Calculated 258.8 MOS/KG (273-304); Potassium 4.7 MMOL/L (3.5-5.1); Total Protein 8.4 G/DL (6.4-8.2)
[2021-06-01 22:30] LABS: Bacteria,Urine Many /HPF (Few); Bilirubin,Urine Negative (Negative); Blood, Urine Negative (Negative); Calcium Oxalate Crystals,Urine Few /HPF (Few); Glucose,Urine (UA) Negative (Negative); Ketones,Urine 80 mg/dL (Negative); Mucus,Urine Many /LPF (Occasional); Nitrite,Urine Negative (Negative); Protein,Urine 100 MG/DL; RBC,Urine 8 /HPF (0-4); Squamous Epithelial Cell,Urine Occasional /HPF (0-10); Urine Appearance CLEAR (Clear); Urine Color Amber (Yellow); Urine Specific Gravity 1.024 (1.001-1.035)
[2021-06-02] MEDS ORDERED: hydrALAZINE 20 MG/1 ML VIAL IV PRN (00:34)
[2021-06-02] MEDS ORDERED: ONDANSETRON 4 MG/2 ML VIAL IV PRN (00:34)
[2021-06-02] MEDS ORDERED: DEXTROSE 50% 25 GM/50 ML SYRINGE IV PRN (00:34)
[2021-06-02] MEDS ORDERED: NICOTINE 21 MG/24 HR PATCH TRANSDERM PRN (00:34)
[2021-06-02] MEDS ORDERED: GLUCAGON 1 MG VIAL IM PRN (00:34)
[2021-06-02] MEDS: HYDROmorphone 2 MG/1 ML VIAL IV PRN ×7 (01:15→21:39)
[2021-06-02] MEDS: SODIUM CHLORIDE 0.9% 1,000 ML IV SCH ×4 (01:35→18:18)
[2021-06-02] MEDS ORDERED: cefTRIAXone 1,000 MG in SODIUM CHLORIDE 0.9% 100 ML IV SCH (02:00)
[2021-06-02] MEDS: cefTRIAXone 2,000 MG in SODIUM CHLORIDE 0.9% 100 ML IV SCH ×2 (02:00→21:44)
[2021-06-02] MEDS ORDERED: INSULIN LISPRO 100 UNIT/ML SUBCUT SCH (06:00)
[2021-06-02 06:03] LABS: Basophils % 0.5 % (0.0-0.8); Eosinophils # 0.1 10*3/uL (0.0-0.87); Eosinophils % 0.7 % (0.00-10.9); Hematocrit 24.6 VOL% (42.0-52.0); Hemoglobin 7.2 GM/DL (14.0-18.0); Immature Granulocytes % 0.5 %; Immature Granulocytes Absolute 0.04 #; Lymphocytes # 1.6 10*3/uL (1.4-4.0); Lymphocytes % 21.2 % (21.2-54.2); Mean Corpuscular HGB Conc 29.3 GM/DL (32-36); Mean Corpuscular Volume 71.9 FL (87-102); Mean Platelet Volume 10.4 FL (9.6-12.0); Monocytes % 13.5 % (1.7-12.7); Neutrophils % 63.6 % (38.7-73.9); Platelet Count 331 T/CUMM (130-400); Red Blood Count 3.42 MC/CUMM (3.8-5.5); Red Cell Distribution Width 17.7 % (9.3-17.3); White Blood Count 7.4 T/CUMM (4-12)
[2021-06-02 06:19] LABS: Albumin 3.8 G/DL (3.4-5.0); Bilirubin,Total 1.2 MG/DL (0.20-1.00); Calcium 8.8 MG/DL (8.5-10.1); Osmolality,Calculated 261.7 MOS/KG (273-304); Potassium 3.9 MMOL/L (3.5-5.1); Total Protein 7.9 G/DL (6.4-8.2)
[2021-06-02 06:32] LABS: Hypochromasia 2+; Polychromasia Slight
[2021-06-02 06:33] LABS: Anisocytosis 1+; Microcytosis 1+; Target Cells Few
[2021-06-02 06:34] LABS: Platelet Estimate Normal
[2021-06-02] MEDS: PANTOPRAZOLE 40 MG VIAL IV SCH (08:13)
[2021-06-02] MEDS: MULTIVITAMIN (BEROCCA) TABLET PO SCH (08:13)
[2021-06-02] MEDS: carvediloL 6.25 MG TABLET PO SCH ×2 (08:13→21:35)
[2021-06-02] MEDS: APIXABAN 5 MG TABLET PO SCH ×2 (08:13→21:35)
[2021-06-02] MEDS: FOLIC ACID 1 MG TABLET PO SCH (08:13)
[2021-06-02] MEDS: POLYVINYL ALCOHOL 1.4% OPH SOLN 15 ML BOTTLE BOTH EYES SCH ×4 (08:14→21:39)
[2021-06-02] MEDS ORDERED: ERYTHROMYCIN 0.5% OPHT OINT 3.5 GM TUBE BOTH EYES SCH (09:00)
[2021-06-03] MEDS: HYDROmorphone 2 MG/1 ML VIAL IV PRN ×3 (00:49→08:28)
[2021-06-03] MEDS: SODIUM CHLORIDE 0.9% 1,000 ML IV SCH ×3 (02:01→22:26)
[2021-06-03 08:10] LABS: Basophils % 0.4 % (0.0-0.8); Eosinophils # 0.1 10*3/uL (0.0-0.87); Eosinophils % 1.7 % (0.00-10.9); Hematocrit 23.1 VOL% (42.0-52.0); Hemoglobin 6.5 GM/DL (14.0-18.0); Immature Granulocytes % 0.4 %; Immature Granulocytes Absolute 0.03 #; Lymphocytes # 1.7 10*3/uL (1.4-4.0); Lymphocytes % 23.3 % (21.2-54.2); Mean Corpuscular HGB Conc 28.1 GM/DL (32-36); Mean Corpuscular Volume 73.8 FL (87-102); Mean Platelet Volume 9.9 FL (9.6-12.0); Monocytes % 13.6 % (1.7-12.7); Neutrophils % 60.6 % (38.7-73.9); Platelet Count 325 T/CUMM (130-400); Red Blood Count 3.13 MC/CUMM (3.8-5.5); White Blood Count 7.2 T/CUMM (4-12)
[2021-06-03] MEDS: APIXABAN 5 MG TABLET PO SCH ×2 (08:26→21:47)
[2021-06-03] MEDS: PANTOPRAZOLE 40 MG VIAL IV SCH (08:26)
[2021-06-03] MEDS: MULTIVITAMIN (BEROCCA) TABLET PO SCH (08:26)
[2021-06-03] MEDS: FOLIC ACID 1 MG TABLET PO SCH (08:26)
[2021-06-03] MEDS: carvediloL 6.25 MG TABLET PO SCH ×2 (08:26→21:47)
[2021-06-03 08:47] LABS: Calcium 8.5 MG/DL (8.5-10.1); Osmolality,Calculated 261.7 MOS/KG (273-304); Potassium 4.5 MMOL/L (3.5-5.1)
[2021-06-03] MEDS: POLYVINYL ALCOHOL 1.4% OPH SOLN 15 ML BOTTLE BOTH EYES SCH ×4 (10:09→21:47)
[2021-06-03] MEDS ORDERED: SODIUM CHLORIDE 0.9% 1,000 ML IV PRN (12:11)
[2021-06-03] MEDS ORDERED: MAGNESIUM SULF RIDER 2 GM/50 ML PREMIX IV ONE (17:11)
[2021-06-03 17:36] LABS: Hematocrit 27.2 VOL% (42.0-52.0); Hemoglobin 7.9 GM/DL (14.0-18.0)
[2021-06-03] MEDS: cefTRIAXone 2,000 MG in SODIUM CHLORIDE 0.9% 100 ML IV SCH (21:47)
[2021-06-04] MEDS: SODIUM CHLORIDE 0.9% 1,000 ML IV SCH ×3 (01:04→05:45)
[2021-06-04] MEDS: HYDROmorphone 2 MG/1 ML VIAL IV PRN (01:26)
[2021-06-04 05:28] LABS: Basophils % 0.6 % (0.0-0.8); Eosinophils # 0.1 10*3/uL (0.0-0.87); Eosinophils % 1.6 % (0.00-10.9); Hematocrit 26.1 VOL% (42.0-52.0); Hemoglobin 7.5 GM/DL (14.0-18.0); Immature Granulocytes % 0.5 %; Immature Granulocytes Absolute 0.03 #; Lymphocytes # 2.1 10*3/uL (1.4-4.0); Lymphocytes % 33.3 % (21.2-54.2); Mean Corpuscular HGB Conc 28.7 GM/DL (32-36); Mean Corpuscular Volume 75.7 FL (87-102); Mean Platelet Volume 9.9 FL (9.6-12.0); Platelet Count 300 T/CUMM (130-400); Red Blood Count 3.45 MC/CUMM (3.8-5.5); Red Cell Distribution Width 19.3 % (9.3-17.3); White Blood Count 6.4 T/CUMM (4-12)
[2021-06-04 05:48] LABS: Hypochromasia 1+; Microcytosis 1+; Platelet Estimate Adequate
[2021-06-04 05:50] LABS: Alanine Aminotransferase 103 U/L (16-61); Albumin 3.3 G/DL (3.4-5.0); Alkaline Phosphatase 142 U/L (45-117); Aspartate Amino Transferase 118 U/L (0-37); Bilirubin,Total < 0.39 MG/DL (0.20-1.00); Blood Urea Nitrogen 11 MG/DL (7-18); Calcium 8.7 MG/DL (8.5-10.1); Carbon Dioxide 25 MMOL/L (21-32); Estimated Glom Filtration Rate 69 ML/MIN; Glucose 136 MG/DL (74-106); Osmolality,Calculated 268.2 MOS/KG (273-304); Potassium 4.2 MMOL/L (3.5-5.1); Sodium 134 MMOL/L (136-145); Total Protein 6.8 G/DL (6.4-8.2)
[2021-06-04 08:14] VITALS: BP 123/77
[2021-06-04] MEDS: MULTIVITAMIN (BEROCCA) TABLET PO SCH (08:54)
[2021-06-04] MEDS: carvediloL 6.25 MG TABLET PO SCH (08:54)
[2021-06-04] MEDS: FOLIC ACID 1 MG TABLET PO SCH (08:54)
[2021-06-04] MEDS: PANTOPRAZOLE 40 MG VIAL IV SCH (08:54)
[2021-06-04] MEDS: APIXABAN 5 MG TABLET PO SCH (08:54)
[2021-06-04] MEDS: POLYVINYL ALCOHOL 1.4% OPH SOLN 15 ML BOTTLE BOTH EYES SCH (08:55)
== END 2021-06-04 11:55 | disposition home or self-care (01) ==
LOC: N.ED 15:52 → N.EDINP 06-02 00:34 → INTOOBSV 06-02 00:34 → SUATTDRO 06-02 00:34 → N.3E 06-02 01:42
PROVIDERS: ADMIT Internal Medicine; ATTEND Internal Medicine

== ENCOUNTER 2021-10-24 15:38 | Inpatient (IN) ==
[2021-10-24] MEDS ORDERED: SODIUM CHLORIDE 0.9% 1,000 ML IV STA ×2 (16:26→17:51)
[2021-10-24] MEDS ORDERED: ONDANSETRON 4 MG/2 ML VIAL IV STA (16:26)
[2021-10-24] MEDS ORDERED: HYDROmorphone 1 MG/1 ML SYRINGE IV STA ×2 (16:26→18:20)
[2021-10-24 17:12] LABS: Basophils % 0.6 % (0.0-0.8); Eosinophils % 0.4 % (0.00-10.9); Hematocrit 32.5 VOL% (42.0-52.0); Hemoglobin 9.8 GM/DL (14.0-18.0); Immature Granulocytes % 0.2 %; Immature Granulocytes Absolute 0.01 #; Lymphocytes # 1.8 10*3/uL (1.4-4.0); Lymphocytes % 36.3 % (21.2-54.2); Mean Corpuscular HGB Conc 30.2 GM/DL (32-36); Mean Corpuscular Volume 71.4 FL (87-102); Mean Platelet Volume 9.7 FL (9.6-12.0); Monocytes # 0.6 10*3/uL (0.11-0.8); Monocytes % 11.4 % (1.7-12.7); Neutrophils % 51.1 % (38.7-73.9); Platelet Count 177 T/CUMM (130-400); Red Blood Count 4.55 MC/CUMM (3.8-5.5); Red Cell Distribution Width 21.1 % (9.3-17.3)
[2021-10-24 17:25] LABS: Alanine Aminotransferase 118 U/L (16-61); Albumin 3.4 G/DL (3.4-5.0); Alkaline Phosphatase 127 U/L (45-117); Amylase 400 U/L (25-115); Aspartate Amino Transferase 214 U/L (0-37); Blood Urea Nitrogen 4 MG/DL (7-18); Calcium 9.4 MG/DL (8.5-10.1); Carbon Dioxide 24 MMOL/L (21-32); Chloride 101 MMOL/L (98-107); Glucose 110 MG/DL (74-106); Osmolality,Calculated 265.2 MOS/KG (273-304); Potassium 3.2 MMOL/L (3.5-5.1); Sodium 134 MMOL/L (136-145); Total Protein 7.6 G/DL (6.4-8.2)
[2021-10-24] MEDS ORDERED: ZALEPLON 5 MG CAPSULE PO PRN (17:51)
[2021-10-24] MEDS ORDERED: GLUCAGON 1 MG VIAL IM PRN (17:51)
[2021-10-24] MEDS ORDERED: NICOTINE 21 MG/24 HR PATCH TRANSDERM PRN (17:51)
[2021-10-24] MEDS ORDERED: ONDANSETRON 4 MG/2 ML VIAL IV PRN (17:51)
[2021-10-24] MEDS ORDERED: ACETAMINOPHEN 325 MG TABLET PO PRN (17:51)
[2021-10-24] MEDS ORDERED: hydrALAZINE 20 MG/1 ML VIAL IV PRN (17:51)
[2021-10-24 17:59] LABS: Risk Ratio 2.11; VLDL Cholesterol 15.4 MG/DL
[2021-10-24] MEDS ORDERED: DEXTROSE 10% 250 ML BAG IV PRN (17:59)
[2021-10-24] MEDS: HEPARIN 5,000 UNIT/1 ML VIAL SUBCUT SCH (20:03)
[2021-10-24] MEDS ORDERED: SODIUM CHLORIDE 0.9% 1,000 ML IV ONE (23:50)
[2021-10-25] MEDS: DEXT 5% NACL 0.9% KCL 40 MEQ 40 MEQ/1,000 ML BAG IV SCH ×2 (00:36→15:01)
[2021-10-25] MEDS: HYDROmorphone 1 MG/1 ML SYRINGE IV PRN ×6 (00:36→22:24)
[2021-10-25 02:14] LABS: Basophils # 0.1 10*3/uL (0.0-0.2); Basophils % 0.9 % (0.0-0.8); Eosinophils # 0.1 10*3/uL (0.0-0.87); Eosinophils % 0.9 % (0.00-10.9); Hematocrit 31.5 VOL% (42.0-52.0); Hemoglobin 9.5 GM/DL (14.0-18.0); Immature Granulocytes % 0.2 %; Immature Granulocytes Absolute 0.01 #; Lymphocytes # 1.2 10*3/uL (1.4-4.0); Lymphocytes % 19.9 % (21.2-54.2); Mean Corpuscular HGB Conc 30.2 GM/DL (32-36); Mean Corpuscular Volume 72.6 FL (87-102); Mean Platelet Volume 9.6 FL (9.6-12.0); Monocytes # 0.5 10*3/uL (0.11-0.8); Monocytes % 9.2 % (1.7-12.7); Neutrophils % 68.9 % (38.7-73.9); Platelet Count 164 T/CUMM (130-400); Red Blood Count 4.34 MC/CUMM (3.8-5.5); Red Cell Distribution Width 21.3 % (9.3-17.3); White Blood Count 5.8 T/CUMM (4-12)
[2021-10-25 02:31] LABS: Calcium 8.3 MG/DL (8.5-10.1); Osmolality,Calculated 272.7 MOS/KG (273-304); Potassium 3.5 MMOL/L (3.5-5.1)
[2021-10-25] MEDS: HEPARIN 5,000 UNIT/1 ML VIAL SUBCUT SCH ×2 (06:23→17:34)
[2021-10-25] MEDS: PANTOPRAZOLE 40 MG VIAL IV SCH (08:34)
[2021-10-25] MEDS: THIAMINE 200 MG/2 ML VIAL IV SCH (08:37)
[2021-10-25] MEDS ORDERED: MAGNESIUM SULF RIDER 2 GM/50 ML PREMIX IV ONE (09:21)
[2021-10-25] MEDS ORDERED: LORazepam 2 MG/1 ML VIAL IV PRN (09:25)
[2021-10-25] MEDS ORDERED: chlordiazePOXIDE 25 MG CAPSULE PO PRN (09:25)
[2021-10-25 10:28] LABS: Hepatitis B Core IgM Quant 0.32 Index; Hepatitis B Surface Ag Quant < 0.10 Index; Hepatitis B Surface Ag Result Non-Reactive (NonReactive); Hepatitis C Virus Ab Quant 0.09 Index; Hepatitis C Virus Ab Result Non-Reactive (NonReactive); Vitamin B12 714 PG/ML (211-911)
[2021-10-25] MEDS: FOLIC ACID INJ 1 MG in SYRINGE 1 EACH IV SCH ×2 (11:03→11:39)
[2021-10-25] MEDS: FERROUS SULFATE 325 MG TABLET PO SCH (22:24)
[2021-10-26] MEDS: HYDROmorphone 1 MG/1 ML SYRINGE IV PRN ×3 (04:33→13:21)
[2021-10-26] MEDS: DEXT 5% NACL 0.9% KCL 40 MEQ 40 MEQ/1,000 ML BAG IV SCH (04:36)
[2021-10-26 05:16] LABS: Basophils % 0.7 % (0.0-0.8); Eosinophils # 0.1 10*3/uL (0.0-0.87); Eosinophils % 2.1 % (0.00-10.9); Hematocrit 30.1 VOL% (42.0-52.0); Immature Granulocytes % 0.2 %; Immature Granulocytes Absolute 0.01 #; Lymphocytes # 1.4 10*3/uL (1.4-4.0); Lymphocytes % 33.6 % (21.2-54.2); Mean Corpuscular HGB Conc 29.9 GM/DL (32-36); Mean Corpuscular Volume 73.1 FL (87-102); Mean Platelet Volume 9.9 FL (9.6-12.0); Monocytes # 0.7 10*3/uL (0.11-0.8); Monocytes % 15.4 % (1.7-12.7); Platelet Count 168 T/CUMM (130-400); Red Blood Count 4.12 MC/CUMM (3.8-5.5); Red Cell Distribution Width 21.3 % (9.3-17.3); White Blood Count 4.3 T/CUMM (4-12)
[2021-10-26 05:35] LABS: Calcium 8.6 MG/DL (8.5-10.1); Osmolality,Calculated 265.1 MOS/KG (273-304); Potassium 4.1 MMOL/L (3.5-5.1)
[2021-10-26] MEDS: HEPARIN 5,000 UNIT/1 ML VIAL SUBCUT SCH (06:26)
[2021-10-26] MEDS ORDERED: FERRIC GLUCONATE COMPLEX 125 MG in SODIUM CHLORIDE 0.9% 100 ML IV SCH (09:00)
[2021-10-26] MEDS: FERROUS SULFATE 325 MG TABLET PO SCH (10:13)
[2021-10-26] MEDS: FOLIC ACID INJ 1 MG in SYRINGE 1 EACH IV SCH (10:13)
[2021-10-26] MEDS: PANTOPRAZOLE 40 MG VIAL IV SCH (10:14)
[2021-10-26] MEDS: THIAMINE 200 MG/2 ML VIAL IV SCH (10:14)
[2021-10-26] MEDS ORDERED: MAGNESIUM SULF RIDER 2 GM/50 ML PREMIX IV ONE (11:00)
[2021-10-26 15:45] LABS: Mucus,Urine Occasional /LPF (Occasional); Squamous Epithelial Cell,Urine Occasional /HPF (0-10)
[2021-10-26 15:54] LABS: Bilirubin,Urine Negative (Negative); Blood, Urine Negative (Negative); Glucose,Urine (UA) 100 mg/dL (Negative); Ketones,Urine Negative (Negative); Nitrite,Urine Negative (Negative); Protein,Urine Negative (Negative); Urine Appearance Clear (Clear); Urine Color Yellow (Yellow)
[2021-10-26 16:28] VITALS: BP 133/86
[2021-10-26] MEDS ORDERED: carvediloL 6.25 MG TABLET PO SCH (17:00)
[2021-10-27] MEDS ORDERED: CHOLECALCIFEROL 1,000 UNIT TABLET PO SCH (09:00)
== END 2021-10-26 16:54 | disposition left against medical advice (07) | DRG 439 ==
LOC: N.ED 15:38 → N.EDINP 17:52 → N.5E 18:56
PROVIDERS: ADMIT Internal Medicine; ATTEND Internal Medicine

== ENCOUNTER 2022-04-03 20:01 | Inpatient (IN) ==
[2022-04-03] MEDS ORDERED: ONDANSETRON 4 MG/2 ML VIAL IV ONE (23:25)
[2022-04-03] MEDS ORDERED: SODIUM CHLORIDE 0.9% 1,000 ML IV STA (23:25)
[2022-04-03] MEDS ORDERED: fentaNYL 100 MCG/2 ML VIAL IV STA (23:25)
[2022-04-03 23:59] LABS: Basophils % 0.2 % (0.0-0.8); Eosinophils # 0.5 10*3/uL (0.0-0.87); Eosinophils % 4.6 % (0.00-10.9); Hematocrit 33.2 VOL% (42.0-52.0); Hemoglobin 10.3 GM/DL (14.0-18.0); Immature Granulocytes % 0.4 %; Immature Granulocytes Absolute 0.04 #; Lymphocytes # 1.7 10*3/uL (1.4-4.0); Lymphocytes % 16.1 % (21.2-54.2); Mean Corpuscular Volume 71.6 FL (87-102); Mean Platelet Volume 8.8 FL (9.6-12.0); Monocytes # 0.8 10*3/uL (0.11-0.8); Monocytes % 7.7 % (1.7-12.7); Platelet Count 705 T/CUMM (130-400); Red Blood Count 4.64 MC/CUMM (3.8-5.5); Red Cell Distribution Width 19.6 % (9.3-17.3); White Blood Count 10.3 T/CUMM (4-12)
[2022-04-04 00:19] LABS: Alanine Aminotransferase 20 U/L (16-61); Albumin 2.8 G/DL (3.4-5.0); Alkaline Phosphatase 153 U/L (45-117); Aspartate Amino Transferase 31 U/L (0-37); Bilirubin,Total < 0.39 MG/DL (0.20-1.00); Blood Urea Nitrogen 7 MG/DL (7-18); Calcium 8.6 MG/DL (8.5-10.1); Carbon Dioxide 23 MMOL/L (21-32); Chloride 103 MMOL/L (98-107); Glucose 108 MG/DL (74-106); Osmolality,Calculated 268.1 MOS/KG (273-304); Potassium 3.8 MMOL/L (3.5-5.1); Sodium 135 MMOL/L (136-145); Total Protein 7.6 G/DL (6.4-8.2)
[2022-04-04 01:07] LABS: Platelet Estimate Increased; Target Cells 1+
[2022-04-04 01:09] LABS: Hypochromia Slight; Polychromasia Slight
[2022-04-04 01:21] LABS: Bilirubin,Urine Negative (Negative); Blood, Urine Negative (Negative); Calcium Oxalate Crystals,Urine Occasional /HPF (Few); Glucose,Urine (UA) Negative (Negative); Ketones,Urine 5 mg/dL (Negative); Mucus,Urine Many /LPF (Occasional); Nitrite,Urine Negative (Negative); Protein,Urine 30 mg/dL (Negative); RBC,Urine 1 /HPF (0-4); Squamous Epithelial Cell,Urine Occasional /HPF (0-10); Urine Appearance CLEAR (Clear); Urine Color Yellow (Yellow); Urine Specific Gravity 1.026 (1.001-1.035); Urine Urobilinogen < 2.0 eU/dL (<2.0)
[2022-04-04] MEDS ORDERED: HYDROmorphone 1 MG/1 ML SYRINGE IV STA (01:21)
[2022-04-04] MEDS ORDERED: ONDANSETRON 4 MG/2 ML VIAL IV ONE (01:21)
[2022-04-04] MEDS ORDERED: hydrALAZINE 20 MG/1 ML VIAL IV PRN (03:26)
[2022-04-04] MEDS ORDERED: ONDANSETRON 4 MG/2 ML VIAL IV PRN (03:26)
[2022-04-04] MEDS ORDERED: GLUCAGON 1 MG VIAL IM PRN (03:26)
[2022-04-04] MEDS ORDERED: SODIUM CHLORIDE 0.9% 1,000 ML IV SCH (03:30)
[2022-04-04] MEDS ORDERED: oxyCODONE IR 5 MG TABLET PO PRN (03:32)
[2022-04-04] MEDS ORDERED: DEXTROSE 10% 250 ML BAG IV PRN (03:42)
[2022-04-04] MEDS: INSULIN LISPRO 100 UNIT/ML SUBCUT SCH ×4 (07:38→21:39)
[2022-04-04] MEDS: LACTATED RINGERS 1,000 ML IV SCH ×3 (08:35→23:48)
[2022-04-04] MEDS: HYDROmorphone 1 MG/1 ML SYRINGE IV PRN ×4 (08:40→21:35)
[2022-04-04] MEDS ORDERED: amLODIPine 5 MG TABLET PO SCH (09:00)
[2022-04-04 09:10] LABS: Basophils % 0.4 % (0.0-0.8); Eosinophils # 0.5 10*3/uL (0.0-0.87); Eosinophils % 4.7 % (0.00-10.9); Hematocrit 27.1 VOL% (42.0-52.0); Hemoglobin 8.2 GM/DL (14.0-18.0); Immature Granulocytes % 0.5 %; Immature Granulocytes Absolute 0.05 #; Lymphocytes # 1.5 10*3/uL (1.4-4.0); Lymphocytes % 14.8 % (21.2-54.2); Mean Corpuscular HGB Conc 30.3 GM/DL (32-36); Mean Corpuscular Volume 72.7 FL (87-102); Mean Platelet Volume 9.3 FL (9.6-12.0); Monocytes % 10.1 % (1.7-12.7); Neutrophils % 69.5 % (38.7-73.9); Platelet Count 600 T/CUMM (130-400); Red Blood Count 3.73 MC/CUMM (3.8-5.5); Red Cell Distribution Width 19.4 % (9.3-17.3); White Blood Count 9.8 T/CUMM (4-12)
[2022-04-04] MEDS: FERROUS SULFATE 325 MG TABLET PO SCH (09:11)
[2022-04-04] MEDS: FOLIC ACID INJ 1 MG in SYRINGE 1 EACH IV SCH (09:18)
[2022-04-04] MEDS: MAGNESIUM OXIDE 400 MG TABLET PO SCH (09:21)
[2022-04-04] MEDS: MULTIVITAMIN (BEROCCA) TABLET PO SCH (09:21)
[2022-04-04] MEDS: LIPASE PO SCH ×3 (09:21→21:39)
[2022-04-04] MEDS: PROTEASE PO SCH ×3 (09:21→21:39)
[2022-04-04] MEDS: AMYLASE PO SCH ×3 (09:21→21:39)
[2022-04-04 09:26] LABS: Albumin 2.1 G/DL (3.4-5.0); Bilirubin,Total 0.4 MG/DL (0.20-1.00); Calcium 7.7 MG/DL (8.5-10.1); Potassium 4.2 MMOL/L (3.5-5.1); Risk Ratio 4.73; Total Protein 5.8 G/DL (6.4-8.2); VLDL Cholesterol 13.4 MG/DL
[2022-04-04] MEDS: THIAMINE 200 MG/2 ML VIAL IV SCH (09:27)
[2022-04-04 11:29] LABS: Barbiturates Screen,Urine Negative (Negative); Benzodiazepines Screen,Urine Negative (Negative); Cannabinoid Screen,Urine Negative (Negative); Opiate Screen,Urine Positive (Negative); Phencyclidine Screen,Urine Negative (Negative)
[2022-04-04] MEDS ORDERED: INFLUENZA VIRUS VACCINE 0.5 ML SYRINGE IM ONE (12:42)
[2022-04-05] MEDS: HYDROmorphone 1 MG/1 ML SYRINGE IV PRN ×4 (03:27→20:36)
[2022-04-05 05:45] LABS: Basophils % 0.4 % (0.0-0.8); Eosinophils # 0.6 10*3/uL (0.0-0.87); Eosinophils % 5.7 % (0.00-10.9); Hemoglobin 7.5 GM/DL (14.0-18.0); Immature Granulocytes % 0.4 %; Immature Granulocytes Absolute 0.04 #; Lymphocytes # 1.1 10*3/uL (1.4-4.0); Lymphocytes % 10.1 % (21.2-54.2); Mean Corpuscular Volume 74.2 FL (87-102); Mean Platelet Volume 9.3 FL (9.6-12.0); Monocytes # 0.9 10*3/uL (0.11-0.8); Monocytes % 8.7 % (1.7-12.7); Neutrophils % 74.7 % (38.7-73.9); Platelet Count 592 T/CUMM (130-400); Red Blood Count 3.37 MC/CUMM (3.8-5.5); Red Cell Distribution Width 19.3 % (9.3-17.3); White Blood Count 10.5 T/CUMM (4-12)
[2022-04-05 06:06] LABS: % Iron Saturation 5.7 % (18-50); Ferritin 117.5 ng/mL (26-388)
[2022-04-05 06:09] LABS: Bilirubin,Total 0.4 MG/DL (0.20-1.00); Calcium 8.2 MG/DL (8.5-10.1); Osmolality,Calculated 266.1 MOS/KG (273-304); Potassium 4.1 MMOL/L (3.5-5.1); Total Protein 5.5 G/DL (6.4-8.2)
[2022-04-05] MEDS: LACTATED RINGERS 1,000 ML IV SCH ×3 (06:33→20:39)
[2022-04-05] MEDS: INSULIN LISPRO 100 UNIT/ML SUBCUT SCH ×4 (07:15→20:37)
[2022-04-05 07:32] LABS: INR 1.2; PT Patient Result 12.9 SECS (10.1-12.1)
[2022-04-05 10:09] LABS: Neutrophils,Peritoneal Fluid 90 %
[2022-04-05 10:13] LABS: RBC,Peritoneal Fluid 629 T/CUMM
[2022-04-05] MEDS: MAGNESIUM OXIDE 400 MG TABLET PO SCH (10:14)
[2022-04-05] MEDS: MULTIVITAMIN (BEROCCA) TABLET PO SCH (10:14)
[2022-04-05] MEDS: AMYLASE PO SCH ×3 (10:15→20:37)
[2022-04-05] MEDS: LIPASE PO SCH ×3 (10:15→20:37)
[2022-04-05] MEDS: FERROUS SULFATE 325 MG TABLET PO SCH (10:15)
[2022-04-05] MEDS: PROTEASE PO SCH ×3 (10:15→20:37)
[2022-04-05] MEDS: FOLIC ACID INJ 1 MG in SYRINGE 1 EACH IV SCH (10:24)
[2022-04-05] MEDS: THIAMINE 200 MG/2 ML VIAL IV SCH (10:25)
[2022-04-05] MEDS: PANTOPRAZOLE 40 MG VIAL IV SCH (10:27)
[2022-04-05] MEDS ORDERED: HYDROmorphone 1 MG/1 ML SYRINGE IV PRN (15:17)
[2022-04-05] MEDS: cefTRIAXone 1,000 MG in SODIUM CHLORIDE 0.9% 100 ML IV SCH (16:25)
[2022-04-06] MEDS: HYDROmorphone 1 MG/1 ML SYRINGE IV PRN ×6 (00:32→22:26)
[2022-04-06] MEDS: LACTATED RINGERS 1,000 ML IV SCH ×5 (00:33→20:34)
[2022-04-06 06:07] LABS: Basophils % 0.4 % (0.0-0.8); Eosinophils # 0.7 10*3/uL (0.0-0.87); Eosinophils % 6.4 % (0.00-10.9); Hematocrit 25.5 VOL% (42.0-52.0); Hemoglobin 7.6 GM/DL (14.0-18.0); Immature Granulocytes % 0.4 %; Immature Granulocytes Absolute 0.04 #; Lymphocytes # 1.1 10*3/uL (1.4-4.0); Lymphocytes % 9.9 % (21.2-54.2); Mean Corpuscular HGB Conc 29.8 GM/DL (32-36); Mean Corpuscular Volume 73.5 FL (87-102); Mean Platelet Volume 9.1 FL (9.6-12.0); Monocytes # 0.8 10*3/uL (0.11-0.8); Monocytes % 7.7 % (1.7-12.7); Neutrophils % 75.2 % (38.7-73.9); Platelet Count 618 T/CUMM (130-400); Red Blood Count 3.47 MC/CUMM (3.8-5.5); Red Cell Distribution Width 19.6 % (9.3-17.3)
[2022-04-06 06:27] LABS: Calcium 8.3 MG/DL (8.5-10.1); Osmolality,Calculated 269.8 MOS/KG (273-304); Potassium 3.7 MMOL/L (3.5-5.1)
[2022-04-06] MEDS: INSULIN LISPRO 100 UNIT/ML SUBCUT SCH ×4 (08:17→20:29)
[2022-04-06] MEDS: MULTIVITAMIN (BEROCCA) TABLET PO SCH (08:41)
[2022-04-06] MEDS: MAGNESIUM OXIDE 400 MG TABLET PO SCH (08:41)
[2022-04-06] MEDS: FOLIC ACID INJ 1 MG in SYRINGE 1 EACH IV SCH (08:41)
[2022-04-06] MEDS: FERROUS SULFATE 325 MG TABLET PO SCH (08:41)
[2022-04-06] MEDS: PANTOPRAZOLE 40 MG VIAL IV SCH (08:44)
[2022-04-06] MEDS: THIAMINE 200 MG/2 ML VIAL IV SCH (08:46)
[2022-04-06] MEDS: PROTEASE PO SCH ×3 (08:50→20:34)
[2022-04-06] MEDS: AMYLASE PO SCH ×3 (08:50→20:34)
[2022-04-06] MEDS: LIPASE PO SCH ×3 (08:50→20:34)
[2022-04-06] MEDS: POLYETHYLENE GLYCOL POWDER 17 GM PACK PO SCH (12:00)
[2022-04-06] MEDS ORDERED: MAGNESIUM SULF RIDER 2 GM/50 ML PREMIX IV ONE ×2 (12:00→16:00)
[2022-04-06] MEDS: cefTRIAXone 1,000 MG in SODIUM CHLORIDE 0.9% 100 ML IV SCH (16:11)
[2022-04-07] MEDS: HYDROmorphone 1 MG/1 ML SYRINGE IV PRN ×5 (02:23→20:07)
[2022-04-07] MEDS: LACTATED RINGERS 1,000 ML IV SCH ×5 (02:35→21:23)
[2022-04-07 05:32] LABS: Basophils # 0.1 10*3/uL (0.0-0.2); Basophils % 0.5 % (0.0-0.8); Eosinophils # 0.9 10*3/uL (0.0-0.87); Eosinophils % 6.8 % (0.00-10.9); Hematocrit 24.7 VOL% (42.0-52.0); Hemoglobin 7.5 GM/DL (14.0-18.0); Immature Granulocytes % 0.6 %; Immature Granulocytes Absolute 0.08 #; Lymphocytes # 1.6 10*3/uL (1.4-4.0); Lymphocytes % 12.5 % (21.2-54.2); Mean Corpuscular HGB Conc 30.4 GM/DL (32-36); Mean Corpuscular Volume 74.6 FL (87-102); Mean Platelet Volume 8.9 FL (9.6-12.0); Monocytes # 1.1 10*3/uL (0.11-0.8); Monocytes % 8.7 % (1.7-12.7); Neutrophils % 70.9 % (38.7-73.9); Platelet Count 549 T/CUMM (130-400); Red Blood Count 3.31 MC/CUMM (3.8-5.5); Red Cell Distribution Width 19.7 % (9.3-17.3); White Blood Count 12.8 T/CUMM (4-12)
[2022-04-07 05:57] LABS: Calcium 8.5 MG/DL (8.5-10.1); Potassium 3.8 MMOL/L (3.5-5.1)
[2022-04-07] MEDS: POLYETHYLENE GLYCOL POWDER 17 GM PACK PO SCH (08:27)
[2022-04-07] MEDS: INSULIN LISPRO 100 UNIT/ML SUBCUT SCH ×4 (08:27→21:10)
[2022-04-07] MEDS: MAGNESIUM OXIDE 400 MG TABLET PO SCH (08:27)
[2022-04-07] MEDS: FOLIC ACID 1 MG TABLET PO SCH (08:27)
[2022-04-07] MEDS: PROTEASE PO SCH ×3 (08:28→21:12)
[2022-04-07] MEDS: MULTIVITAMIN (BEROCCA) TABLET PO SCH (08:28)
[2022-04-07] MEDS: AMYLASE PO SCH ×3 (08:28→21:12)
[2022-04-07] MEDS: THIAMINE 100 MG TABLET PO SCH (08:28)
[2022-04-07] MEDS: LIPASE PO SCH ×3 (08:28→21:12)
[2022-04-07] MEDS: PANTOPRAZOLE 40 MG VIAL IV SCH (08:28)
[2022-04-07] MEDS: FERROUS SULFATE 325 MG TABLET PO SCH ×2 (08:28→18:29)
[2022-04-07] MEDS ORDERED: MAGNESIUM SULF RIDER 2 GM/50 ML PREMIX IV ONE (12:00)
[2022-04-07] MEDS: cefTRIAXone 1,000 MG in SODIUM CHLORIDE 0.9% 100 ML IV SCH (15:23)
[2022-04-07 21:00] LABS: Neutrophils,Peritoneal Fluid 97 %
[2022-04-07 21:05] LABS: RBC,Peritoneal Fluid 91 T/CUMM
[2022-04-07] MEDS: ALUMINUM/MAGNES/SIMETH MAX STR 30 ML UDCUP PO PRN (21:08)
[2022-04-07] MEDS: DOCUSATE SODIUM 100 MG CAPSULE PO SCH (21:09)
[2022-04-08] MEDS: HYDROmorphone 1 MG/1 ML SYRINGE IV PRN ×6 (00:04→21:57)
[2022-04-08 05:49] LABS: Basophils # 0.1 10*3/uL (0.0-0.2); Basophils % 0.4 % (0.0-0.8); Eosinophils # 0.8 10*3/uL (0.0-0.87); Eosinophils % 6.5 % (0.00-10.9); Hematocrit 23.3 VOL% (42.0-52.0); Hemoglobin 7.1 GM/DL (14.0-18.0); Immature Granulocytes % 0.6 %; Immature Granulocytes Absolute 0.07 #; Lymphocytes # 1.2 10*3/uL (1.4-4.0); Lymphocytes % 10.5 % (21.2-54.2); Mean Corpuscular HGB Conc 30.5 GM/DL (32-36); Mean Corpuscular Volume 74.4 FL (87-102); Mean Platelet Volume 9.1 FL (9.6-12.0); Monocytes # 1.1 10*3/uL (0.11-0.8); Monocytes % 9.4 % (1.7-12.7); Neutrophils % 72.6 % (38.7-73.9); Platelet Count 495 T/CUMM (130-400); Red Blood Count 3.13 MC/CUMM (3.8-5.5); Red Cell Distribution Width 19.9 % (9.3-17.3); White Blood Count 11.7 T/CUMM (4-12)
[2022-04-08 06:03] LABS: Calcium 7.9 MG/DL (8.5-10.1); Potassium 4.2 MMOL/L (3.5-5.1)
[2022-04-08] MEDS: ALUMINUM/MAGNES/SIMETH MAX STR 30 ML UDCUP PO PRN (06:43)
[2022-04-08] MEDS: INSULIN LISPRO 100 UNIT/ML SUBCUT SCH ×4 (08:12→21:23)
[2022-04-08] MEDS ORDERED: AZITHROMYCIN 250 MG TABLET PO SCH (09:00)
[2022-04-08] MEDS: MULTIVITAMIN (BEROCCA) TABLET PO SCH (09:08)
[2022-04-08] MEDS: DOCUSATE SODIUM 100 MG CAPSULE PO SCH ×2 (09:08→21:15)
[2022-04-08] MEDS: FOLIC ACID 1 MG TABLET PO SCH (09:08)
[2022-04-08] MEDS: PANTOPRAZOLE 40 MG VIAL IV SCH (09:08)
[2022-04-08] MEDS: THIAMINE 100 MG TABLET PO SCH (09:08)
[2022-04-08] MEDS: FERROUS SULFATE 325 MG TABLET PO SCH ×2 (09:08→16:57)
[2022-04-08] MEDS: MAGNESIUM OXIDE 400 MG TABLET PO SCH (09:09)
[2022-04-08] MEDS: POLYETHYLENE GLYCOL POWDER 17 GM PACK PO SCH (09:22)
[2022-04-08] MEDS: AMYLASE PO SCH ×3 (10:11→21:23)
[2022-04-08] MEDS: LIPASE PO SCH ×3 (10:11→21:23)
[2022-04-08] MEDS: PROTEASE PO SCH ×3 (10:11→21:23)
[2022-04-08] MEDS: LACTATED RINGERS 1,000 ML IV SCH ×2 (10:37→16:39)
[2022-04-08] MEDS ORDERED: SODIUM CHLORIDE 0.9% 1,000 ML IV PRN (13:10)
[2022-04-08] MEDS ORDERED: IMIPENEM/CILASTATIN 500 MG in SODIUM CHLORIDE 0.9% 100 ML IV SCH (13:30)
[2022-04-08] MEDS: MEROPENEM 500 MG in SODIUM CHLORIDE 0.9% 100 ML IV SCH ×2 (13:58→21:22)
[2022-04-08] MEDS ORDERED: GENTAMICIN INJ 80 MG/50 ML PREMIX IV ONE (14:00)
[2022-04-08] MEDS: ALBUTEROL/IPRATROPIUM 3 ML NEB RESP TX SCH ×3 (14:15→23:54)
[2022-04-09] MEDS: HYDROmorphone 1 MG/1 ML SYRINGE IV PRN ×5 (01:55→20:56)
[2022-04-09] MEDS: MEROPENEM 500 MG in SODIUM CHLORIDE 0.9% 100 ML IV SCH ×4 (02:45→21:01)
[2022-04-09] MEDS: ALBUTEROL/IPRATROPIUM 3 ML NEB RESP TX SCH ×6 (03:09→20:38)
[2022-04-09 06:12] LABS: Basophils # 0.1 10*3/uL (0.0-0.2); Basophils % 0.4 % (0.0-0.8); Eosinophils # 0.4 10*3/uL (0.0-0.87); Eosinophils % 2.7 % (0.00-10.9); Hematocrit 38.1 VOL% (42.0-52.0); Hemoglobin 11.6 GM/DL (14.0-18.0); Immature Granulocytes % 0.5 %; Immature Granulocytes Absolute 0.07 #; Lymphocytes # 1.2 10*3/uL (1.4-4.0); Lymphocytes % 8.6 % (21.2-54.2); Mean Corpuscular HGB Conc 30.4 GM/DL (32-36); Mean Corpuscular Volume 79.5 FL (87-102); Mean Platelet Volume 8.9 FL (9.6-12.0); Monocytes # 1.1 10*3/uL (0.11-0.8); Monocytes % 7.8 % (1.7-12.7); Platelet Count 398 T/CUMM (130-400); Red Blood Count 4.79 MC/CUMM (3.8-5.5); Red Cell Distribution Width 20.7 % (9.3-17.3)
[2022-04-09 06:21] LABS: Calcium 8.6 MG/DL (8.5-10.1); Osmolality,Calculated 266.1 MOS/KG (273-304); Potassium 3.9 MMOL/L (3.5-5.1)
[2022-04-09] MEDS: INSULIN LISPRO 100 UNIT/ML SUBCUT SCH ×4 (09:12→20:58)
[2022-04-09] MEDS: DOCUSATE SODIUM 100 MG CAPSULE PO SCH ×2 (09:58→20:55)
[2022-04-09] MEDS: POLYETHYLENE GLYCOL POWDER 17 GM PACK PO SCH (09:58)
[2022-04-09] MEDS: MULTIVITAMIN (BEROCCA) TABLET PO SCH (09:58)
[2022-04-09] MEDS: THIAMINE 100 MG TABLET PO SCH (09:58)
[2022-04-09] MEDS: FOLIC ACID 1 MG TABLET PO SCH (09:58)
[2022-04-09] MEDS: FERROUS SULFATE 325 MG TABLET PO SCH ×2 (09:58→17:37)
[2022-04-09] MEDS: MAGNESIUM OXIDE 400 MG TABLET PO SCH (09:58)
[2022-04-09] MEDS: CHOLECALCIFEROL 1,000 UNIT TABLET PO SCH (09:58)
[2022-04-09] MEDS: PANTOPRAZOLE 40 MG VIAL IV SCH (09:59)
[2022-04-09] MEDS ORDERED: GENTAMICIN INJ 80 MG/50 ML PREMIX IV ONE (17:00)
[2022-04-09] MEDS: LIPASE/PROTEASE/AMYLASE 4,200 UNITS CAPSULE PO SCH ×2 (17:29→18:05)
[2022-04-09] MEDS: LIPASE PO SCH (18:39)
[2022-04-09] MEDS: PROTEASE PO SCH (18:39)
[2022-04-09] MEDS: AMYLASE PO SCH (18:39)
[2022-04-09 21:17] LABS: Barbiturates Screen,Urine Negative (Negative); Benzodiazepines Screen,Urine Negative (Negative); Cannabinoid Screen,Urine Negative (Negative); Opiate Screen,Urine Positive (Negative); Phencyclidine Screen,Urine Negative (Negative)
[2022-04-10] MEDS: ALBUTEROL/IPRATROPIUM 3 ML NEB RESP TX SCH ×7 (00:09→19:18)
[2022-04-10] MEDS: HYDROmorphone 1 MG/1 ML SYRINGE IV PRN ×4 (00:57→20:28)
[2022-04-10] MEDS: MEROPENEM 500 MG in SODIUM CHLORIDE 0.9% 100 ML IV SCH ×3 (03:47→19:25)
[2022-04-10 06:01] LABS: Basophils # 0.1 10*3/uL (0.0-0.2); Basophils % 0.4 % (0.0-0.8); Eosinophils # 0.8 10*3/uL (0.0-0.87); Eosinophils % 5.6 % (0.00-10.9); Hematocrit 34.3 VOL% (42.0-52.0); Hemoglobin 10.9 GM/DL (14.0-18.0); Immature Granulocytes % 0.6 %; Immature Granulocytes Absolute 0.09 #; Lymphocytes # 1.3 10*3/uL (1.4-4.0); Lymphocytes % 9.2 % (21.2-54.2); Mean Corpuscular HGB Conc 31.8 GM/DL (32-36); Mean Corpuscular Volume 75.7 FL (87-102); Mean Platelet Volume 9.2 FL (9.6-12.0); Monocytes # 1.4 10*3/uL (0.11-0.8); Monocytes % 9.6 % (1.7-12.7); Neutrophils % 74.6 % (38.7-73.9); Platelet Count 417 T/CUMM (130-400); Red Blood Count 4.53 MC/CUMM (3.8-5.5); Red Cell Distribution Width 21.2 % (9.3-17.3); White Blood Count 14.5 T/CUMM (4-12)
[2022-04-10 06:26] LABS: Calcium 7.9 MG/DL (8.5-10.1); Potassium 4.2 MMOL/L (3.5-5.1)
[2022-04-10] MEDS ORDERED: MAGNESIUM SULF RIDER 2 GM/50 ML PREMIX IV ONE (08:06)
[2022-04-10] MEDS: DOCUSATE SODIUM 100 MG CAPSULE PO SCH ×2 (09:41→20:23)
[2022-04-10] MEDS: FOLIC ACID 1 MG TABLET PO SCH (09:41)
[2022-04-10] MEDS: FERROUS SULFATE 325 MG TABLET PO SCH ×2 (09:41→17:56)
[2022-04-10] MEDS: MAGNESIUM OXIDE 400 MG TABLET PO SCH (09:41)
[2022-04-10] MEDS: MULTIVITAMIN (BEROCCA) TABLET PO SCH (09:41)
[2022-04-10] MEDS: CHOLECALCIFEROL 1,000 UNIT TABLET PO SCH (09:41)
[2022-04-10] MEDS: THIAMINE 100 MG TABLET PO SCH (09:42)
[2022-04-10] MEDS: LIPASE/PROTEASE/AMYLASE 4,200 UNITS CAPSULE PO SCH ×3 (09:42→17:57)
[2022-04-10] MEDS: PANTOPRAZOLE 40 MG VIAL IV SCH (09:43)
[2022-04-10] MEDS: POLYETHYLENE GLYCOL POWDER 17 GM PACK PO SCH (09:43)
[2022-04-10] MEDS: INSULIN LISPRO 100 UNIT/ML SUBCUT SCH ×4 (10:39→20:29)
[2022-04-10] MEDS: FERRIC GLUCONATE COMPLEX 125 MG in SODIUM CHLORIDE 0.9% 100 ML IV SCH (13:36)
[2022-04-11] MEDS: ALBUTEROL/IPRATROPIUM 3 ML NEB RESP TX SCH ×3 (00:10→20:15)
[2022-04-11] MEDS: MEROPENEM 500 MG in SODIUM CHLORIDE 0.9% 100 ML IV SCH ×4 (01:26→18:41)
[2022-04-11 06:00] LABS: Basophils # 0.1 10*3/uL (0.0-0.2); Basophils % 0.4 % (0.0-0.8); Eosinophils # 0.7 10*3/uL (0.0-0.87); Eosinophils % 4.6 % (0.00-10.9); Hematocrit 33.4 VOL% (42.0-52.0); Hemoglobin 10.7 GM/DL (14.0-18.0); Immature Granulocytes % 0.4 %; Immature Granulocytes Absolute 0.07 #; Lymphocytes # 1.6 10*3/uL (1.4-4.0); Lymphocytes % 9.9 % (21.2-54.2); Mean Platelet Volume 9.5 FL (9.6-12.0); Monocytes # 1.4 10*3/uL (0.11-0.8); Monocytes % 8.7 % (1.7-12.7); Platelet Count 455 T/CUMM (130-400); Red Blood Count 4.34 MC/CUMM (3.8-5.5); Red Cell Distribution Width 21.6 % (9.3-17.3); White Blood Count 15.9 T/CUMM (4-12)
[2022-04-11 06:22] LABS: Calcium 8.2 MG/DL (8.5-10.1)
[2022-04-11] MEDS: INSULIN LISPRO 100 UNIT/ML SUBCUT SCH ×4 (07:30→20:07)
[2022-04-11] MEDS: HYDROmorphone 1 MG/1 ML SYRINGE IV PRN ×4 (08:41→22:34)
[2022-04-11] MEDS: FOLIC ACID 1 MG TABLET PO SCH (08:43)
[2022-04-11] MEDS: PANTOPRAZOLE 40 MG VIAL IV SCH (08:43)
[2022-04-11] MEDS: CHOLECALCIFEROL 1,000 UNIT TABLET PO SCH (08:43)
[2022-04-11] MEDS: THIAMINE 100 MG TABLET PO SCH (08:43)
[2022-04-11] MEDS: FERROUS SULFATE 325 MG TABLET PO SCH ×2 (08:43→17:55)
[2022-04-11] MEDS: MAGNESIUM OXIDE 400 MG TABLET PO SCH (08:43)
[2022-04-11] MEDS: MULTIVITAMIN (BEROCCA) TABLET PO SCH (08:43)
[2022-04-11] MEDS: FERRIC GLUCONATE COMPLEX 125 MG in SODIUM CHLORIDE 0.9% 100 ML IV SCH (08:44)
[2022-04-11] MEDS: LIPASE/PROTEASE/AMYLASE 4,200 UNITS CAPSULE PO SCH ×3 (08:52→17:55)
[2022-04-11] MEDS: DOCUSATE SODIUM 100 MG CAPSULE PO SCH ×2 (09:22→20:07)
[2022-04-11] MEDS: POLYETHYLENE GLYCOL POWDER 17 GM PACK PO SCH (09:22)
[2022-04-11] MEDS ORDERED: LACTULOSE 20 GM/30 ML UDCUP PO PRN (10:27)
[2022-04-11] MEDS: LACTATED RINGERS 1,000 ML IV SCH (12:46)
[2022-04-12] MEDS: ALBUTEROL/IPRATROPIUM 3 ML NEB RESP TX SCH ×5 (00:33→23:05)
[2022-04-12] MEDS: MEROPENEM 500 MG in SODIUM CHLORIDE 0.9% 100 ML IV SCH ×4 (01:38→21:50)
[2022-04-12] MEDS: HYDROmorphone 1 MG/1 ML SYRINGE IV PRN ×5 (04:46→22:27)
[2022-04-12 05:29] LABS: Basophils % 0.3 % (0.0-0.8); Eosinophils % 7.4 % (0.00-10.9); Hematocrit 35.1 VOL% (42.0-52.0); Immature Granulocytes % 0.6 %; Immature Granulocytes Absolute 0.08 #; Lymphocytes # 1.6 10*3/uL (1.4-4.0); Lymphocytes % 11.6 % (21.2-54.2); Mean Corpuscular HGB Conc 31.3 GM/DL (32-36); Mean Corpuscular Volume 78.2 FL (87-102); Mean Platelet Volume 9.6 FL (9.6-12.0); Monocytes # 1.2 10*3/uL (0.11-0.8); Monocytes % 9.1 % (1.7-12.7); Platelet Count 477 T/CUMM (130-400); Red Blood Count 4.49 MC/CUMM (3.8-5.5); Red Cell Distribution Width 22.4 % (9.3-17.3); White Blood Count 13.5 T/CUMM (4-12)
[2022-04-12 05:51] LABS: Alanine Aminotransferase 17 U/L (16-61); Albumin 1.7 G/DL (3.4-5.0); Alkaline Phosphatase 93 U/L (45-117); Aspartate Amino Transferase 25 U/L (0-37); Bilirubin,Total < 0.39 MG/DL (0.20-1.00); Blood Urea Nitrogen 5 MG/DL (7-18); Carbon Dioxide 28 MMOL/L (21-32); Chloride 105 MMOL/L (98-107); Glucose 112 MG/DL (74-106); Potassium 4.1 MMOL/L (3.5-5.1); Sodium 136 MMOL/L (136-145); Total Protein 5.4 G/DL (6.4-8.2)
[2022-04-12] MEDS: INSULIN LISPRO 100 UNIT/ML SUBCUT SCH ×4 (07:40→21:12)
[2022-04-12] MEDS: FOLIC ACID 1 MG TABLET PO SCH (08:36)
[2022-04-12] MEDS: LIPASE/PROTEASE/AMYLASE 4,200 UNITS CAPSULE PO SCH ×3 (08:36→16:50)
[2022-04-12] MEDS: THIAMINE 100 MG TABLET PO SCH (08:36)
[2022-04-12] MEDS: FERROUS SULFATE 325 MG TABLET PO SCH ×2 (08:36→16:50)
[2022-04-12] MEDS: MULTIVITAMIN (BEROCCA) TABLET PO SCH (08:36)
[2022-04-12] MEDS: MAGNESIUM OXIDE 400 MG TABLET PO SCH (08:37)
[2022-04-12] MEDS: DOCUSATE SODIUM 100 MG CAPSULE PO SCH ×2 (08:37→21:50)
[2022-04-12] MEDS: PANTOPRAZOLE 40 MG VIAL IV SCH (08:38)
[2022-04-12] MEDS: FERRIC GLUCONATE COMPLEX 125 MG in SODIUM CHLORIDE 0.9% 100 ML IV SCH (09:51)
[2022-04-12] MEDS ORDERED: ALBUTEROL/IPRATROPIUM 3 ML NEB RESP TX PRN (12:50)
[2022-04-12] MEDS: POLYETHYLENE GLYCOL POWDER 17 GM PACK PO SCH (14:03)
[2022-04-12] MEDS: CHOLECALCIFEROL 1,000 UNIT TABLET PO SCH (14:04)
[2022-04-12] MEDS: ALUMINUM/MAGNES/SIMETH MAX STR 30 ML UDCUP PO PRN (16:50)
[2022-04-13] MEDS: MEROPENEM 500 MG in SODIUM CHLORIDE 0.9% 100 ML IV SCH ×4 (01:33→20:31)
[2022-04-13] MEDS: HYDROmorphone 1 MG/1 ML SYRINGE IV PRN ×4 (03:15→20:33)
[2022-04-13 05:56] LABS: Basophils # 0.1 10*3/uL (0.0-0.2); Basophils % 0.6 % (0.0-0.8); Eosinophils # 1.4 10*3/uL (0.0-0.87); Eosinophils % 9.9 % (0.00-10.9); Hematocrit 34.8 VOL% (42.0-52.0); Hemoglobin 10.9 GM/DL (14.0-18.0); Immature Granulocytes % 0.4 %; Immature Granulocytes Absolute 0.05 #; Lymphocytes # 1.7 10*3/uL (1.4-4.0); Lymphocytes % 12.3 % (21.2-54.2); Mean Corpuscular HGB Conc 31.3 GM/DL (32-36); Mean Corpuscular Volume 77.7 FL (87-102); Mean Platelet Volume 9.5 FL (9.6-12.0); Monocytes # 1.4 10*3/uL (0.11-0.8); Neutrophils % 66.8 % (38.7-73.9); Platelet Count 481 T/CUMM (130-400); Red Blood Count 4.48 MC/CUMM (3.8-5.5); Red Cell Distribution Width 22.5 % (9.3-17.3); White Blood Count 13.9 T/CUMM (4-12)
[2022-04-13 06:13] LABS: Albumin 1.6 G/DL (3.4-5.0); Bilirubin,Total 0.4 MG/DL (0.20-1.00); Osmolality,Calculated 273.5 MOS/KG (273-304); Potassium 4.4 MMOL/L (3.5-5.1); Total Protein 5.6 G/DL (6.4-8.2)
[2022-04-13] MEDS: INSULIN LISPRO 100 UNIT/ML SUBCUT SCH ×4 (07:30→20:55)
[2022-04-13] MEDS: FERROUS SULFATE 325 MG TABLET PO SCH ×2 (08:25→16:33)
[2022-04-13] MEDS: LIPASE/PROTEASE/AMYLASE 4,200 UNITS CAPSULE PO SCH ×3 (08:25→16:33)
[2022-04-13] MEDS: THIAMINE 100 MG TABLET PO SCH (08:26)
[2022-04-13] MEDS: CHOLECALCIFEROL 1,000 UNIT TABLET PO SCH (08:26)
[2022-04-13] MEDS: FOLIC ACID 1 MG TABLET PO SCH (08:26)
[2022-04-13] MEDS: MAGNESIUM OXIDE 400 MG TABLET PO SCH (08:26)
[2022-04-13] MEDS: POLYETHYLENE GLYCOL POWDER 17 GM PACK PO SCH (08:26)
[2022-04-13] MEDS: MULTIVITAMIN (BEROCCA) TABLET PO SCH (08:26)
[2022-04-13] MEDS: DOCUSATE SODIUM 100 MG CAPSULE PO SCH ×2 (08:26→20:31)
[2022-04-13] MEDS: PANTOPRAZOLE 40 MG VIAL IV SCH (09:24)
[2022-04-13] MEDS: FERRIC GLUCONATE COMPLEX 125 MG in SODIUM CHLORIDE 0.9% 100 ML IV SCH (13:39)
[2022-04-13] MEDS: LACTATED RINGERS 1,000 ML IV SCH ×2 (16:27→16:34)
[2022-04-14] MEDS: LACTATED RINGERS 1,000 ML IV SCH ×2 (01:18→08:03)
[2022-04-14] MEDS: HYDROmorphone 1 MG/1 ML SYRINGE IV PRN ×5 (01:21→23:00)
[2022-04-14] MEDS: MEROPENEM 500 MG in SODIUM CHLORIDE 0.9% 100 ML IV SCH ×4 (01:22→21:13)
[2022-04-14 05:39] LABS: Basophils # 0.1 10*3/uL (0.0-0.2); Basophils % 0.5 % (0.0-0.8); Eosinophils # 1.2 10*3/uL (0.0-0.87); Eosinophils % 8.2 % (0.00-10.9); Hematocrit 35.2 VOL% (42.0-52.0); Hemoglobin 11.2 GM/DL (14.0-18.0); Immature Granulocytes % 0.5 %; Immature Granulocytes Absolute 0.07 #; Lymphocytes # 1.5 10*3/uL (1.4-4.0); Lymphocytes % 9.8 % (21.2-54.2); Mean Corpuscular HGB Conc 31.8 GM/DL (32-36); Mean Corpuscular Volume 77.9 FL (87-102); Mean Platelet Volume 9.4 FL (9.6-12.0); Monocytes # 1.2 10*3/uL (0.11-0.8); Monocytes % 7.9 % (1.7-12.7); Neutrophils % 73.1 % (38.7-73.9); Platelet Count 503 T/CUMM (130-400); Red Blood Count 4.52 MC/CUMM (3.8-5.5); Red Cell Distribution Width 22.7 % (9.3-17.3); White Blood Count 15.1 T/CUMM (4-12)
[2022-04-14 05:57] LABS: Albumin 1.7 G/DL (3.4-5.0); Bilirubin,Total 0.4 MG/DL (0.20-1.00); Calcium 8.2 MG/DL (8.5-10.1); Osmolality,Calculated 272.7 MOS/KG (273-304); Total Protein 5.8 G/DL (6.4-8.2)
[2022-04-14] MEDS: INSULIN LISPRO 100 UNIT/ML SUBCUT SCH ×4 (08:03→21:13)
[2022-04-14] MEDS: PANTOPRAZOLE 40 MG VIAL IV SCH (08:27)
[2022-04-14] MEDS: FERRIC GLUCONATE COMPLEX 125 MG in SODIUM CHLORIDE 0.9% 100 ML IV SCH (08:27)
[2022-04-14] MEDS: LIPASE/PROTEASE/AMYLASE 4,200 UNITS CAPSULE PO SCH ×3 (08:28→16:21)
[2022-04-14] MEDS: POLYETHYLENE GLYCOL POWDER 17 GM PACK PO SCH (08:28)
[2022-04-14] MEDS: CHOLECALCIFEROL 1,000 UNIT TABLET PO SCH (08:28)
[2022-04-14] MEDS: THIAMINE 100 MG TABLET PO SCH (08:28)
[2022-04-14] MEDS: DOCUSATE SODIUM 100 MG CAPSULE PO SCH ×2 (08:28→21:13)
[2022-04-14] MEDS: FOLIC ACID 1 MG TABLET PO SCH (08:28)
[2022-04-14] MEDS: FERROUS SULFATE 325 MG TABLET PO SCH ×2 (08:29→16:21)
[2022-04-14] MEDS: MULTIVITAMIN (BEROCCA) TABLET PO SCH (08:29)
[2022-04-14] MEDS: MAGNESIUM OXIDE 400 MG TABLET PO SCH (08:29)
[2022-04-14 14:50] LABS: Neutrophils,Peritoneal Fluid 59 %; RBC,Peritoneal Fluid < 1 T/CUMM
[2022-04-14 15:25] LABS: Amylase,Peritoneal Fluid 115 U/L; Glucose,Peritoneal Fluid 109 MG/DL; LDH,Peritoneal Fluid 281 U/L; Total Protein,Peritoneal Fluid 3.3 G/DL
[2022-04-15] MEDS: MEROPENEM 500 MG in SODIUM CHLORIDE 0.9% 100 ML IV SCH ×4 (01:59→21:15)
[2022-04-15] MEDS: HYDROmorphone 1 MG/1 ML SYRINGE IV PRN ×5 (02:40→21:13)
[2022-04-15 06:30] LABS: Basophils % 0.3 % (0.0-0.8); Eosinophils # 1.3 10*3/uL (0.0-0.87); Eosinophils % 8.8 % (0.00-10.9); Hematocrit 37.1 VOL% (42.0-52.0); Hemoglobin 11.9 GM/DL (14.0-18.0); Immature Granulocytes % 0.3 %; Immature Granulocytes Absolute 0.05 #; Lymphocytes # 1.5 10*3/uL (1.4-4.0); Lymphocytes % 10.1 % (21.2-54.2); Mean Corpuscular HGB Conc 32.1 GM/DL (32-36); Mean Corpuscular Volume 78.1 FL (87-102); Mean Platelet Volume 9.4 FL (9.6-12.0); Monocytes # 1.1 10*3/uL (0.11-0.8); Monocytes % 7.3 % (1.7-12.7); Neutrophils % 73.2 % (38.7-73.9); Platelet Count 498 T/CUMM (130-400); Red Blood Count 4.75 MC/CUMM (3.8-5.5); Red Cell Distribution Width 23.1 % (9.3-17.3)
[2022-04-15 06:52] LABS: Alanine Aminotransferase 14 U/L (16-61); Albumin 1.5 G/DL (3.4-5.0); Alkaline Phosphatase 96 U/L (45-117); Aspartate Amino Transferase 17 U/L (0-37); Bilirubin,Total < 0.39 MG/DL (0.20-1.00); Blood Urea Nitrogen 5 MG/DL (7-18); Carbon Dioxide 25 MMOL/L (21-32); Chloride 103 MMOL/L (98-107); Glucose 120 MG/DL (74-106); Osmolality,Calculated 267.1 MOS/KG (273-304); Potassium 4.4 MMOL/L (3.5-5.1); Sodium 135 MMOL/L (136-145); Total Protein 5.3 G/DL (6.4-8.2)
[2022-04-15 06:55] LABS: Anisocytosis 1+; Hypochromia 1+; Microcytosis 1+; Platelet Estimate Increased; Target Cells Few
[2022-04-15] MEDS: FERROUS SULFATE 325 MG TABLET PO SCH ×2 (08:30→17:49)
[2022-04-15] MEDS: LIPASE/PROTEASE/AMYLASE 4,200 UNITS CAPSULE PO SCH ×3 (08:30→17:49)
[2022-04-15] MEDS: FOLIC ACID 1 MG TABLET PO SCH (08:30)
[2022-04-15] MEDS: POLYETHYLENE GLYCOL POWDER 17 GM PACK PO SCH (08:30)
[2022-04-15] MEDS: MULTIVITAMIN (BEROCCA) TABLET PO SCH (08:31)
[2022-04-15] MEDS: CHOLECALCIFEROL 1,000 UNIT TABLET PO SCH (08:31)
[2022-04-15] MEDS: THIAMINE 100 MG TABLET PO SCH (08:31)
[2022-04-15] MEDS: DOCUSATE SODIUM 100 MG CAPSULE PO SCH ×2 (08:31→21:15)
[2022-04-15] MEDS: MAGNESIUM OXIDE 400 MG TABLET PO SCH (08:31)
[2022-04-15] MEDS: PANTOPRAZOLE 40 MG VIAL IV SCH (08:32)
[2022-04-15] MEDS: INSULIN LISPRO 100 UNIT/ML SUBCUT SCH ×4 (08:33→21:28)
[2022-04-15 14:23] LABS: AFP Tumor < 2.2 NG/ML (0-8); Carcinoembryonic Antigen < 0.50 NG/ML (0.0-5.0)
[2022-04-16] MEDS: HYDROmorphone 1 MG/1 ML SYRINGE IV PRN ×7 (01:30→11:35)
[2022-04-16] MEDS: MEROPENEM 500 MG in SODIUM CHLORIDE 0.9% 100 ML IV SCH ×4 (02:36→19:46)
[2022-04-16] MEDS ORDERED: LIDOCAINE MPF 1% /EPI 30 ML VIAL ONE (08:15)
[2022-04-16] MEDS ORDERED: BUPIVACAINE MPF 0.25% 10 ML VIAL ONE (08:15)
[2022-04-16] MEDS ORDERED: ROCURONIUM 50 MG/5 ML VIAL IV ONE (08:19)
[2022-04-16] MEDS ORDERED: SUCCINYLCHOLINE 200 MG/10 ML VIAL ONE (08:19)
[2022-04-16] MEDS ORDERED: fentaNYL 100 MCG/2 ML VIAL ONE ×3 (08:19→10:42)
[2022-04-16] MEDS ORDERED: SEVOFLURANE 1 UNIT/15 MINUTE INH ONE (08:19)
[2022-04-16] MEDS ORDERED: propofoL 200 MG/20 ML VIAL IV ONE (08:19)
[2022-04-16] MEDS ORDERED: ONDANSETRON 4 MG/2 ML VIAL ONE (08:19)
[2022-04-16] MEDS ORDERED: LIDOCAINE 2% 5 ML VIAL ONE (08:19)
[2022-04-16] MEDS ORDERED: MIDAZOLAM 2 MG/2 ML VIAL ONE (08:20)
[2022-04-16] MEDS: INSULIN LISPRO 100 UNIT/ML SUBCUT SCH ×4 (08:28→20:19)
[2022-04-16 09:07] LABS: Basophils % 0.3 % (0.0-0.8); Eosinophils # 1.1 10*3/uL (0.0-0.87); Eosinophils % 8.6 % (0.00-10.9); Hematocrit 34.5 VOL% (42.0-52.0); Hemoglobin 10.8 GM/DL (14.0-18.0); Immature Granulocytes % 0.3 %; Immature Granulocytes Absolute 0.04 #; Lymphocytes # 1.3 10*3/uL (1.4-4.0); Lymphocytes % 10.4 % (21.2-54.2); Mean Corpuscular HGB Conc 31.3 GM/DL (32-36); Mean Corpuscular Volume 78.6 FL (87-102); Mean Platelet Volume 9.7 FL (9.6-12.0); Monocytes # 1.1 10*3/uL (0.11-0.8); Neutrophils % 71.4 % (38.7-73.9); Platelet Count 544 T/CUMM (130-400); Red Blood Count 4.39 MC/CUMM (3.8-5.5); Red Cell Distribution Width 22.9 % (9.3-17.3); White Blood Count 12.5 T/CUMM (4-12)
[2022-04-16 09:22] LABS: Calcium 8.4 MG/DL (8.5-10.1); Potassium 4.4 MMOL/L (3.5-5.1)
[2022-04-16] MEDS ORDERED: KETAMINE 500 MG/10 ML VIAL ONE (09:43)
[2022-04-16] MEDS ORDERED: LACTATED RINGERS 1,000 ML IV ONE (10:16)
[2022-04-16] MEDS ORDERED: METOPROLOL TARTRATE 5 MG/5 ML VIAL IV ONE (10:42)
[2022-04-16] MEDS ORDERED: SUGAMMADEX 200 MG/2 ML VIAL IV ONE (10:52)
[2022-04-16] MEDS: LIPASE/PROTEASE/AMYLASE 4,200 UNITS CAPSULE PO SCH ×3 (11:20→17:21)
[2022-04-16] MEDS ORDERED: PROMETHAZINE 25 MG/1 ML VIAL ONE (11:21)
[2022-04-16] MEDS ORDERED: diphenhydrAMINE 50 MG/1 ML VIAL IV PRN (11:31)
[2022-04-16] MEDS ORDERED: ONDANSETRON 4 MG/2 ML VIAL IV PRN (11:31)
[2022-04-16] MEDS ORDERED: PROMETHAZINE INJ 25 MG in SODIUM CHLORIDE 0.9% 50 ML IV PRN (11:31)
[2022-04-16] MEDS ORDERED: MEPERIDINE 25 MG/1 ML VIAL IV PRN (11:31)
[2022-04-16 11:39] LABS: Platelet Estimate Increased; Poikilocytosis Slight; Target Cells Few
[2022-04-16 11:46] LABS: Bilirubin,Urine Negative (Negative); Blood, Urine Negative (Negative); Glucose,Urine (UA) Negative (Negative); Hyaline Casts,Urine 8 /LPF (0-3); Ketones,Urine 15 mg/dL (Negative); Mucus,Urine Occasional /LPF (Occasional); Nitrite,Urine Negative (Negative); Protein,Urine Trace mg/dL (Negative); RBC,Urine 5 /HPF (0-4); Squamous Epithelial Cell,Urine Occasional /HPF (0-10); Urine Appearance Clear (Clear); Urine Color Yellow (Yellow); Urine Specific Gravity 1.025 (1.001-1.035); Urine Urobilinogen 0.2 eU/dL (<2.0)
[2022-04-16] MEDS: DOCUSATE SODIUM 100 MG CAPSULE PO SCH ×2 (14:07→19:45)
[2022-04-16] MEDS: POLYETHYLENE GLYCOL POWDER 17 GM PACK PO SCH (14:07)
[2022-04-16] MEDS: PANTOPRAZOLE 40 MG TABLET PO SCH (14:07)
[2022-04-16] MEDS: THIAMINE 100 MG TABLET PO SCH (14:07)
[2022-04-16] MEDS: FOLIC ACID 1 MG TABLET PO SCH (14:07)
[2022-04-16] MEDS: CHOLECALCIFEROL 1,000 UNIT TABLET PO SCH (14:07)
[2022-04-16] MEDS: FERROUS SULFATE 325 MG TABLET PO SCH ×2 (14:07→17:21)
[2022-04-16] MEDS: MULTIVITAMIN (BEROCCA) TABLET PO SCH (14:07)
[2022-04-16] MEDS: MAGNESIUM OXIDE 400 MG TABLET PO SCH (14:07)
[2022-04-16] MEDS: KETOROLAC 30 MG/1 ML VIAL IV PRN (17:42)
[2022-04-17] MEDS: MEROPENEM 500 MG in SODIUM CHLORIDE 0.9% 100 ML IV SCH ×4 (01:08→20:56)
[2022-04-17] MEDS: KETOROLAC 30 MG/1 ML VIAL IV PRN ×2 (02:41→13:42)
[2022-04-17 05:52] LABS: Basophils # 0.1 10*3/uL (0.0-0.2); Basophils % 0.4 % (0.0-0.8); Eosinophils # 0.9 10*3/uL (0.0-0.87); Eosinophils % 7.5 % (0.00-10.9); Hematocrit 34.9 VOL% (42.0-52.0); Hemoglobin 10.8 GM/DL (14.0-18.0); Immature Granulocytes % 0.6 %; Immature Granulocytes Absolute 0.07 #; Lymphocytes # 1.3 10*3/uL (1.4-4.0); Lymphocytes % 10.9 % (21.2-54.2); Mean Corpuscular HGB Conc 30.9 GM/DL (32-36); Mean Platelet Volume 9.7 FL (9.6-12.0); Monocytes # 0.9 10*3/uL (0.11-0.8); Monocytes % 7.4 % (1.7-12.7); Neutrophils % 73.2 % (38.7-73.9); Platelet Count 576 T/CUMM (130-400); Red Blood Count 4.42 MC/CUMM (3.8-5.5); Red Cell Distribution Width 23.5 % (9.3-17.3); White Blood Count 12.1 T/CUMM (4-12)
[2022-04-17 06:19] LABS: Calcium 8.4 MG/DL (8.5-10.1); Osmolality,Calculated 272.8 MOS/KG (273-304); Potassium 4.1 MMOL/L (3.5-5.1)
[2022-04-17] MEDS: INSULIN LISPRO 100 UNIT/ML SUBCUT SCH ×4 (07:49→20:59)
[2022-04-17] MEDS: FOLIC ACID 1 MG TABLET PO SCH (08:52)
[2022-04-17] MEDS: FERROUS SULFATE 325 MG TABLET PO SCH ×2 (08:52→17:55)
[2022-04-17] MEDS: MAGNESIUM OXIDE 400 MG TABLET PO SCH (08:52)
[2022-04-17] MEDS: THIAMINE 100 MG TABLET PO SCH (08:52)
[2022-04-17] MEDS: DOCUSATE SODIUM 100 MG CAPSULE PO SCH ×2 (08:53→20:55)
[2022-04-17] MEDS: PANTOPRAZOLE 40 MG TABLET PO SCH (08:53)
[2022-04-17] MEDS: CHOLECALCIFEROL 1,000 UNIT TABLET PO SCH (08:53)
[2022-04-17] MEDS: LIPASE/PROTEASE/AMYLASE 4,200 UNITS CAPSULE PO SCH ×3 (08:53→17:56)
[2022-04-17] MEDS: MULTIVITAMIN (BEROCCA) TABLET PO SCH (08:53)
[2022-04-17] MEDS: POLYETHYLENE GLYCOL POWDER 17 GM PACK PO SCH (08:54)
[2022-04-17] MEDS ORDERED: BISACODYL 5 MG TABLET PO PRN (11:42)
[2022-04-17] MEDS: ALUMINUM/MAGNES/SIMETH MAX STR 30 ML UDCUP PO PRN (21:01)
[2022-04-18] MEDS: MEROPENEM 500 MG in SODIUM CHLORIDE 0.9% 100 ML IV SCH ×4 (02:45→20:20)
[2022-04-18 05:33] LABS: Basophils # 0.1 10*3/uL (0.0-0.2); Basophils % 0.7 % (0.0-0.8); Eosinophils # 1.3 10*3/uL (0.0-0.87); Hematocrit 34.9 VOL% (42.0-52.0); Immature Granulocytes % 0.5 %; Immature Granulocytes Absolute 0.07 #; Lymphocytes # 1.1 10*3/uL (1.4-4.0); Lymphocytes % 8.8 % (21.2-54.2); Mean Corpuscular HGB Conc 31.5 GM/DL (32-36); Mean Platelet Volume 9.3 FL (9.6-12.0); Monocytes # 0.9 10*3/uL (0.11-0.8); Monocytes % 6.8 % (1.7-12.7); Neutrophils % 73.2 % (38.7-73.9); Platelet Count 589 T/CUMM (130-400); Red Blood Count 4.42 MC/CUMM (3.8-5.5); Red Cell Distribution Width 23.6 % (9.3-17.3)
[2022-04-18 06:00] LABS: Calcium 8.1 MG/DL (8.5-10.1); Osmolality,Calculated 276.5 MOS/KG (273-304); Potassium 4.4 MMOL/L (3.5-5.1)
[2022-04-18] MEDS: INSULIN LISPRO 100 UNIT/ML SUBCUT SCH ×4 (08:03→20:20)
[2022-04-18] MEDS: LIPASE/PROTEASE/AMYLASE 4,200 UNITS CAPSULE PO SCH ×3 (09:19→16:08)
[2022-04-18] MEDS: FOLIC ACID 1 MG TABLET PO SCH (09:19)
[2022-04-18] MEDS: CHOLECALCIFEROL 1,000 UNIT TABLET PO SCH (09:19)
[2022-04-18] MEDS: THIAMINE 100 MG TABLET PO SCH (09:19)
[2022-04-18] MEDS: PANTOPRAZOLE 40 MG TABLET PO SCH (09:19)
[2022-04-18] MEDS: MULTIVITAMIN (BEROCCA) TABLET PO SCH (09:19)
[2022-04-18] MEDS: DOCUSATE SODIUM 100 MG CAPSULE PO SCH ×2 (09:20→20:20)
[2022-04-18] MEDS: FERROUS SULFATE 325 MG TABLET PO SCH ×2 (09:20→16:08)
[2022-04-18] MEDS: POLYETHYLENE GLYCOL POWDER 17 GM PACK PO SCH (09:20)
[2022-04-18] MEDS: MAGNESIUM OXIDE 400 MG TABLET PO SCH (09:20)
[2022-04-18] MEDS: KETOROLAC 30 MG/1 ML VIAL IV PRN (13:20)
[2022-04-19] MEDS: MEROPENEM 500 MG in SODIUM CHLORIDE 0.9% 100 ML IV SCH ×4 (01:20→20:19)
[2022-04-19] MEDS: KETOROLAC 30 MG/1 ML VIAL IV PRN ×2 (08:28→17:20)
[2022-04-19] MEDS: FERROUS SULFATE 325 MG TABLET PO SCH ×2 (08:36→17:19)
[2022-04-19] MEDS: THIAMINE 100 MG TABLET PO SCH (08:36)
[2022-04-19] MEDS: MULTIVITAMIN (BEROCCA) TABLET PO SCH (08:36)
[2022-04-19] MEDS: LIPASE/PROTEASE/AMYLASE 4,200 UNITS CAPSULE PO SCH ×3 (08:36→17:19)
[2022-04-19] MEDS: DOCUSATE SODIUM 100 MG CAPSULE PO SCH ×2 (08:36→20:21)
[2022-04-19] MEDS: FOLIC ACID 1 MG TABLET PO SCH (08:37)
[2022-04-19] MEDS: PANTOPRAZOLE 40 MG TABLET PO SCH (08:37)
[2022-04-19] MEDS: CHOLECALCIFEROL 1,000 UNIT TABLET PO SCH (08:37)
[2022-04-19] MEDS: MAGNESIUM OXIDE 400 MG TABLET PO SCH (08:37)
[2022-04-19] MEDS: POLYETHYLENE GLYCOL POWDER 17 GM PACK PO SCH (08:38)
[2022-04-19] MEDS: INSULIN LISPRO 100 UNIT/ML SUBCUT SCH ×4 (08:42→20:22)
[2022-04-20] MEDS: MEROPENEM 500 MG in SODIUM CHLORIDE 0.9% 100 ML IV SCH ×3 (01:10→15:09)
[2022-04-20] MEDS: INSULIN LISPRO 100 UNIT/ML SUBCUT SCH ×2 (07:30→12:07)
[2022-04-20] MEDS: CHOLECALCIFEROL 1,000 UNIT TABLET PO SCH (08:30)
[2022-04-20] MEDS: THIAMINE 100 MG TABLET PO SCH (08:30)
[2022-04-20] MEDS: MULTIVITAMIN (BEROCCA) TABLET PO SCH (08:31)
[2022-04-20] MEDS: DOCUSATE SODIUM 100 MG CAPSULE PO SCH (08:31)
[2022-04-20] MEDS: LIPASE/PROTEASE/AMYLASE 4,200 UNITS CAPSULE PO SCH ×2 (08:31→12:40)
[2022-04-20] MEDS: PANTOPRAZOLE 40 MG TABLET PO SCH (08:31)
[2022-04-20] MEDS: MAGNESIUM OXIDE 400 MG TABLET PO SCH (08:31)
[2022-04-20] MEDS: FERROUS SULFATE 325 MG TABLET PO SCH (08:31)
[2022-04-20] MEDS: FOLIC ACID 1 MG TABLET PO SCH (08:31)
[2022-04-20] MEDS: POLYETHYLENE GLYCOL POWDER 17 GM PACK PO SCH (08:40)
[2022-04-20 11:22] VITALS: BP 132/46
== END 2022-04-20 15:34 | disposition home or self-care (01) | DRG 987 ==
LOC: N.ED 20:01 → N.EDINP 20:01 → SUATTDRO 04-04 03:22 → N.3E 04-04 10:45
PROVIDERS: ADMIT Emergency Medicine; ATTEND Internal Medicine

== ENCOUNTER 2022-05-05 17:10 | Inpatient (IN) ==
[2022-05-05] MEDS ORDERED: SODIUM CHLORIDE 0.9% 500 ML IV STA (20:06)
[2022-05-05] MEDS ORDERED: ONDANSETRON 4 MG/2 ML VIAL IV STA (20:06)
[2022-05-05] MEDS ORDERED: KETOROLAC 30 MG/1 ML VIAL IV STA (20:06)
[2022-05-05 20:32] LABS: Basophils # 0.1 10*3/uL (0.0-0.2); Basophils % 0.6 % (0.0-0.8); Eosinophils # 0.6 10*3/uL (0.0-0.87); Eosinophils % 5.1 % (0.00-10.9); Hematocrit 31.6 VOL% (42.0-52.0); Hemoglobin 9.9 GM/DL (14.0-18.0); Immature Granulocytes % 0.4 %; Immature Granulocytes Absolute 0.05 #; Lymphocytes # 1.6 10*3/uL (1.4-4.0); Mean Corpuscular HGB Conc 31.3 GM/DL (32-36); Mean Platelet Volume 9.1 FL (9.6-12.0); Monocytes # 0.8 10*3/uL (0.11-0.8); Monocytes % 7.2 % (1.7-12.7); Neutrophils % 72.7 % (38.7-73.9); Platelet Count 477 T/CUMM (130-400); Red Cell Distribution Width 23.8 % (9.3-17.3); White Blood Count 11.3 T/CUMM (4-12)
[2022-05-05 20:53] LABS: Hyaline Casts,Urine 1 /LPF (0-3); Mucus,Urine Occasional /LPF (Occasional); Squamous Epithelial Cell,Urine Occasional /HPF (0-10)
[2022-05-05 20:55] LABS: Bilirubin,Urine Negative (Negative); Blood, Urine Negative (Negative); Glucose,Urine (UA) Negative (Negative); Ketones,Urine 15 mg/dL (Negative); Nitrite,Urine Negative (Negative); Urine Appearance Clear (Clear); Urine Color Yellow (Yellow); Urine Urobilinogen 0.2 eU/dL (<2.0)
[2022-05-05 21:23] LABS: Alanine Aminotransferase 42 U/L (16-61); Albumin 1.6 G/DL (3.4-5.0); Alkaline Phosphatase 218 U/L (45-117); Amylase > 1300 U/L (25-115); Aspartate Amino Transferase 38 U/L (0-37); Bilirubin,Total < 0.39 MG/DL (0.20-1.00); Blood Urea Nitrogen 7 MG/DL (7-18); Calcium 8.6 MG/DL (8.5-10.1); Carbon Dioxide 27 MMOL/L (21-32); Chloride 104 MMOL/L (98-107); Glucose 99 MG/DL (74-106); Osmolality,Calculated 270.8 MOS/KG (273-304); Potassium 4.2 MMOL/L (3.5-5.1); Sodium 137 MMOL/L (136-145); Total Protein 6.3 G/DL (6.4-8.2)
[2022-05-05] MEDS ORDERED: HYDROmorphone 1 MG/1 ML SYRINGE IV STA (22:05)
[2022-05-05 23:03] LABS: Urine Specific Gravity >= 1.030 (1.001-1.035)
[2022-05-05 23:05] LABS: Protein,Urine 30 mg/dL (Negative)
[2022-05-05] MEDS ORDERED: NICOTINE 21 MG/24 HR PATCH TRANSDERM PRN (23:12)
[2022-05-05] MEDS ORDERED: diphenhydrAMINE CAP 25 MG CAPSULE PO PRN (23:12)
[2022-05-05] MEDS ORDERED: hydrALAZINE 20 MG/1 ML VIAL IV PRN (23:12)
[2022-05-05] MEDS ORDERED: guaiFENesin/DM ER 600-30 MG TABLET PO PRN (23:12)
[2022-05-05] MEDS: SODIUM CHLORIDE 0.9% 1,000 ML IV SCH (23:33)
[2022-05-05] MEDS: cefTRIAXone 1,000 MG in SODIUM CHLORIDE 0.9% 100 ML IV SCH (23:33)
[2022-05-06] MEDS: HYDROmorphone 1 MG/1 ML SYRINGE IV PRN ×5 (04:22→20:55)
[2022-05-06 06:01] LABS: Basophils # 0.1 10*3/uL (0.0-0.2); Basophils % 1.1 % (0.0-0.8); Eosinophils # 0.8 10*3/uL (0.0-0.87); Eosinophils % 6.7 % (0.00-10.9); Hematocrit 33.6 VOL% (42.0-52.0); Hemoglobin 10.3 GM/DL (14.0-18.0); Immature Granulocytes % 0.4 %; Immature Granulocytes Absolute 0.05 #; Lymphocytes # 1.9 10*3/uL (1.4-4.0); Lymphocytes % 15.4 % (21.2-54.2); Mean Corpuscular HGB Conc 30.7 GM/DL (32-36); Mean Platelet Volume 9.2 FL (9.6-12.0); Monocytes % 8.5 % (1.7-12.7); Neutrophils % 67.9 % (38.7-73.9); Platelet Count 535 T/CUMM (130-400); Red Cell Distribution Width 24.1 % (9.3-17.3)
[2022-05-06 06:19] LABS: Calcium 8.5 MG/DL (8.5-10.1); Osmolality,Calculated 276.4 MOS/KG (273-304); Potassium 4.7 MMOL/L (3.5-5.1)
[2022-05-06 06:28] LABS: Platelet Estimate Increased; Target Cells Slight
[2022-05-06] MEDS: FUROSEMIDE 40 MG/4 ML VIAL IV SCH (12:36)
[2022-05-06 14:18] LABS: Barbiturates Screen,Urine Negative (Negative); Benzodiazepines Screen,Urine Negative (Negative); Cannabinoid Screen,Urine Negative (Negative); Opiate Screen,Urine Positive (Negative); Phencyclidine Screen,Urine Negative (Negative)
[2022-05-06] MEDS ORDERED: AMYLASE PO SCH (15:00)
[2022-05-06] MEDS ORDERED: LIPASE PO SCH (15:00)
[2022-05-06] MEDS ORDERED: [UNRECOGNIZED DRUG - OTHER] PO SCH (15:00)
[2022-05-06] MEDS ORDERED: PROTEASE PO SCH (15:00)
[2022-05-06] MEDS: SODIUM CHLORIDE 0.9% 1,000 ML IV SCH (16:49)
[2022-05-06] MEDS: PROTEASE PO SCH (21:00)
[2022-05-06] MEDS: LIPASE PO SCH (21:00)
[2022-05-06] MEDS: AMYLASE PO SCH (21:00)
[2022-05-06] MEDS: [UNRECOGNIZED DRUG - OTHER] PO SCH (21:00)
[2022-05-06] MEDS: cefTRIAXone 1,000 MG in SODIUM CHLORIDE 0.9% 100 ML IV SCH (23:34)
[2022-05-07] MEDS: HYDROmorphone 1 MG/1 ML SYRINGE IV PRN ×6 (01:51→23:14)
[2022-05-07 06:29] LABS: Basophils # 0.1 10*3/uL (0.0-0.2); Basophils % 0.9 % (0.0-0.8); Eosinophils # 0.7 10*3/uL (0.0-0.87); Hematocrit 34.2 VOL% (42.0-52.0); Hemoglobin 10.7 GM/DL (14.0-18.0); Immature Granulocytes % 0.4 %; Immature Granulocytes Absolute 0.05 #; Lymphocytes # 1.9 10*3/uL (1.4-4.0); Lymphocytes % 16.4 % (21.2-54.2); Mean Corpuscular HGB Conc 31.3 GM/DL (32-36); Monocytes % 8.5 % (1.7-12.7); Neutrophils % 67.8 % (38.7-73.9); Platelet Count 571 T/CUMM (130-400); Red Blood Count 4.12 MC/CUMM (3.8-5.5); White Blood Count 11.8 T/CUMM (4-12)
[2022-05-07 06:35] LABS: INR 1.1; PT Patient Result 12.1 SECS (10.1-12.1)
[2022-05-07 06:49] LABS: Alanine Aminotransferase 32 U/L (16-61); Albumin 1.7 G/DL (3.4-5.0); Alkaline Phosphatase 226 U/L (45-117); Aspartate Amino Transferase 26 U/L (0-37); Bilirubin,Total < 0.39 MG/DL (0.20-1.00); Blood Urea Nitrogen 9 MG/DL (7-18); Carbon Dioxide 28 MMOL/L (21-32); Chloride 104 MMOL/L (98-107); Glucose 109 MG/DL (74-106); Osmolality,Calculated 274.7 MOS/KG (273-304); Potassium 3.9 MMOL/L (3.5-5.1); Sodium 138 MMOL/L (136-145); Total Protein 6.5 G/DL (6.4-8.2)
[2022-05-07 06:57] LABS: Platelet Estimate Increased; Target Cells Few
[2022-05-07 06:58] LABS: Anisocytosis 2+
[2022-05-07 09:40] LABS: Thyroid Stimulating Hormone 6.2 uIU/ml (0.358-3.74)
[2022-05-07] MEDS: THIAMINE 100 MG TABLET PO SCH (14:35)
[2022-05-07] MEDS: amLODIPine 5 MG TABLET PO SCH (14:35)
[2022-05-07] MEDS: MAGNESIUM OXIDE 400 MG TABLET PO SCH (14:35)
[2022-05-07] MEDS: FERROUS SULFATE 325 MG TABLET PO SCH (14:35)
[2022-05-07] MEDS: CHOLECALCIFEROL 1,000 UNIT TABLET PO SCH (14:36)
[2022-05-07] MEDS: POLYETHYLENE GLYCOL POWDER 17 GM PACK PO SCH (14:36)
[2022-05-07] MEDS: FOLIC ACID 1 MG TABLET PO SCH (14:36)
[2022-05-07] MEDS: FUROSEMIDE 40 MG/4 ML VIAL IV SCH (14:37)
[2022-05-07] MEDS: PROTEASE PO SCH ×2 (14:47→23:10)
[2022-05-07] MEDS: AMYLASE PO SCH ×2 (14:47→23:10)
[2022-05-07] MEDS: [UNRECOGNIZED DRUG - OTHER] PO SCH ×2 (14:47→23:10)
[2022-05-07] MEDS: LIPASE PO SCH ×2 (14:47→23:10)
[2022-05-07] MEDS: SODIUM CHLORIDE 0.9% 1,000 ML IV SCH (15:53)
[2022-05-07] MEDS: cefTRIAXone 1,000 MG in SODIUM CHLORIDE 0.9% 100 ML IV SCH (23:45)
[2022-05-08] MEDS: HYDROmorphone 1 MG/1 ML SYRINGE IV PRN ×5 (03:50→21:51)
[2022-05-08 05:05] LABS: Basophils # 0.1 10*3/uL (0.0-0.2); Basophils % 0.7 % (0.0-0.8); Eosinophils # 0.4 10*3/uL (0.0-0.87); Eosinophils % 3.3 % (0.00-10.9); Hematocrit 32.4 VOL% (42.0-52.0); Hemoglobin 10.3 GM/DL (14.0-18.0); Immature Granulocytes % 0.4 %; Immature Granulocytes Absolute 0.05 #; Lymphocytes # 1.3 10*3/uL (1.4-4.0); Lymphocytes % 10.7 % (21.2-54.2); Mean Corpuscular HGB Conc 31.8 GM/DL (32-36); Mean Corpuscular Volume 80.4 FL (87-102); Mean Platelet Volume 9.2 FL (9.6-12.0); Monocytes # 1.2 10*3/uL (0.11-0.8); Monocytes % 9.7 % (1.7-12.7); Neutrophils % 75.2 % (38.7-73.9); Platelet Count 498 T/CUMM (130-400); Red Blood Count 4.03 MC/CUMM (3.8-5.5); Red Cell Distribution Width 23.5 % (9.3-17.3)
[2022-05-08 06:33] LABS: Alanine Aminotransferase 32 U/L (16-61); Albumin 1.8 G/DL (3.4-5.0); Alkaline Phosphatase 241 U/L (45-117); Aspartate Amino Transferase 65 U/L (0-37); Bilirubin,Total < 0.39 MG/DL (0.20-1.00); Blood Urea Nitrogen 9 MG/DL (7-18); Calcium 8.4 MG/DL (8.5-10.1); Carbon Dioxide 26 MMOL/L (21-32); Chloride 103 MMOL/L (98-107); Glucose 146 MG/DL (74-106); Potassium 3.8 MMOL/L (3.5-5.1); Sodium 136 MMOL/L (136-145); Total Protein 6.5 G/DL (6.4-8.2)
[2022-05-08] MEDS: SODIUM CHLORIDE 0.9% 1,000 ML IV SCH (07:04)
[2022-05-08] MEDS: FERROUS SULFATE 325 MG TABLET PO SCH (09:11)
[2022-05-08] MEDS: THIAMINE 100 MG TABLET PO SCH (09:11)
[2022-05-08] MEDS: FOLIC ACID 1 MG TABLET PO SCH (09:11)
[2022-05-08] MEDS: CHOLECALCIFEROL 1,000 UNIT TABLET PO SCH (09:12)
[2022-05-08] MEDS: MAGNESIUM OXIDE 400 MG TABLET PO SCH (09:12)
[2022-05-08] MEDS: FUROSEMIDE 40 MG/4 ML VIAL IV SCH (09:12)
[2022-05-08] MEDS: amLODIPine 5 MG TABLET PO SCH (09:12)
[2022-05-08] MEDS: LIPASE PO SCH ×3 (09:47→21:16)
[2022-05-08] MEDS: AMYLASE PO SCH ×3 (09:47→21:16)
[2022-05-08] MEDS: POLYETHYLENE GLYCOL POWDER 17 GM PACK PO SCH (09:47)
[2022-05-08] MEDS: [UNRECOGNIZED DRUG - OTHER] PO SCH ×3 (09:47→21:16)
[2022-05-08] MEDS: PROTEASE PO SCH ×3 (09:47→21:16)
[2022-05-08] MEDS: MAGNESIUM HYDROXIDE SUSP 30 ML UDCUP PO PRN (16:59)
[2022-05-08] MEDS: cefTRIAXone 1,000 MG in SODIUM CHLORIDE 0.9% 100 ML IV SCH (23:00)
[2022-05-09] MEDS: HYDROmorphone 1 MG/1 ML SYRINGE IV PRN ×5 (02:02→21:28)
[2022-05-09 05:31] LABS: Basophils # 0.1 10*3/uL (0.0-0.2); Basophils % 0.4 % (0.0-0.8); Eosinophils # 0.3 10*3/uL (0.0-0.87); Eosinophils % 2.1 % (0.00-10.9); Hematocrit 31.8 VOL% (42.0-52.0); Immature Granulocytes % 0.5 %; Immature Granulocytes Absolute 0.06 #; Lymphocytes # 1.5 10*3/uL (1.4-4.0); Lymphocytes % 11.6 % (21.2-54.2); Mean Corpuscular HGB Conc 31.4 GM/DL (32-36); Mean Corpuscular Volume 80.3 FL (87-102); Mean Platelet Volume 9.5 FL (9.6-12.0); Monocytes # 1.3 10*3/uL (0.11-0.8); Monocytes % 10.4 % (1.7-12.7); Platelet Count 506 T/CUMM (130-400); Red Blood Count 3.96 MC/CUMM (3.8-5.5); Red Cell Distribution Width 23.5 % (9.3-17.3); White Blood Count 12.9 T/CUMM (4-12)
[2022-05-09 06:06] LABS: Alanine Aminotransferase 40 U/L (16-61); Albumin 1.6 G/DL (3.4-5.0); Alkaline Phosphatase 231 U/L (45-117); Aspartate Amino Transferase 176 U/L (0-37); Bilirubin,Total < 0.39 MG/DL (0.20-1.00); Blood Urea Nitrogen 9 MG/DL (7-18); Calcium 8.6 MG/DL (8.5-10.1); Carbon Dioxide 29 MMOL/L (21-32); Chloride 102 MMOL/L (98-107); Glucose 119 MG/DL (74-106); Potassium 3.8 MMOL/L (3.5-5.1); Sodium 136 MMOL/L (136-145); Total Protein 6.4 G/DL (6.4-8.2)
[2022-05-09 07:41] LABS: Anisocytosis 1+; Hypochromia 1+; Microcytosis 1+
[2022-05-09 07:42] LABS: Ovalocytes Slight; Platelet Estimate Increased
[2022-05-09] MEDS: amLODIPine 5 MG TABLET PO SCH (09:28)
[2022-05-09] MEDS: MAGNESIUM HYDROXIDE SUSP 30 ML UDCUP PO PRN (09:28)
[2022-05-09] MEDS: DOCUSATE SODIUM 100 MG CAPSULE PO SCH ×2 (09:28→21:43)
[2022-05-09] MEDS: FOLIC ACID 1 MG TABLET PO SCH (09:37)
[2022-05-09] MEDS: LIPASE PO SCH ×3 (09:37→20:51)
[2022-05-09] MEDS: FERROUS SULFATE 325 MG TABLET PO SCH (09:37)
[2022-05-09] MEDS: [UNRECOGNIZED DRUG - OTHER] PO SCH ×3 (09:37→20:51)
[2022-05-09] MEDS: PROTEASE PO SCH ×3 (09:37→20:51)
[2022-05-09] MEDS: AMYLASE PO SCH ×3 (09:37→20:51)
[2022-05-09] MEDS: POLYETHYLENE GLYCOL POWDER 17 GM PACK PO SCH (09:38)
[2022-05-09] MEDS: CHOLECALCIFEROL 1,000 UNIT TABLET PO SCH (09:38)
[2022-05-09] MEDS: MAGNESIUM OXIDE 400 MG TABLET PO SCH (09:38)
[2022-05-09] MEDS: THIAMINE 100 MG TABLET PO SCH (09:38)
[2022-05-09] MEDS: ACETAMINOPHEN 325 MG TABLET PO PRN (13:31)
[2022-05-09] MEDS ORDERED: FUROSEMIDE 40 MG/4 ML VIAL IV ONE (14:59)
[2022-05-09] MEDS ORDERED: ASPIRIN 325 MG TABLET PO STA (16:40)
[2022-05-09] MEDS ORDERED: ENOXAPARIN 60 MG/0.6 ML SYRINGE SUBCUT STA (16:40)
[2022-05-09] MEDS ORDERED: TIROFIBAN IV ONE ×3 (17:40→18:04)
[2022-05-09 17:53] LABS: Arterial Base Excess iSTAT 4 MMOL/L (-2.5-2.5); Arterial Bicarbonate iSTAT 28.4 MMOL/L (20-26); Arterial O2 Saturation iSTAT 95 % (95-100); Arterial PCO2 iSTAT 39 MM HG (35-48); Arterial PO2 iSTAT 68 MM HG (80-95); Arterial Total CO2 iSTAT 30 MMO/L (23-27); Arterial pH iSTAT 7.474 (7.35-7.45)
[2022-05-09] MEDS ORDERED: MIDAZOLAM 2 MG/2 ML VIAL ONE (18:02)
[2022-05-09] MEDS ORDERED: HYDROmorphone 1 MG/1 ML SYRINGE ONE ×2 (18:02→18:26)
[2022-05-09] MEDS ORDERED: VERAPAMIL 5 MG/2 ML VIAL ONE (18:14)
[2022-05-09] MEDS ORDERED: NITROGLYCERIN DRIP 50 MG/250 ML BOTTLE IV ONE (18:14)
[2022-05-09] MEDS ORDERED: ENOXAPARIN 60 MG/0.6 ML SYRINGE ONE (18:22)
[2022-05-09] MEDS: IBUPROFEN 400 MG TABLET PO SCH (21:28)
[2022-05-09] MEDS: ENOXAPARIN 80 MG/0.8 ML SYRINGE SUBCUT SCH (21:28)
[2022-05-09] MEDS: ZALEPLON 5 MG CAPSULE PO PRN (21:42)
[2022-05-09] MEDS: LEVALBUTEROL 1.25 MG/3 ML NEB RESP TX SCH (23:41)
[2022-05-10] MEDS: cefTRIAXone 1,000 MG in SODIUM CHLORIDE 0.9% 100 ML IV SCH (00:15)
[2022-05-10] MEDS: ACETAMINOPHEN 325 MG TABLET PO PRN (00:31)
[2022-05-10] MEDS: HYDROmorphone 1 MG/1 ML SYRINGE IV PRN ×6 (01:34→20:15)
[2022-05-10] MEDS: IBUPROFEN 400 MG TABLET PO SCH ×3 (02:20→15:21)
[2022-05-10 04:38] LABS: Basophils % 0.3 % (0.0-0.8); Eosinophils # 0.1 10*3/uL (0.0-0.87); Eosinophils % 0.7 % (0.00-10.9); Hemoglobin 9.5 GM/DL (14.0-18.0); Immature Granulocytes % 0.4 %; Immature Granulocytes Absolute 0.06 #; Lymphocytes # 1.1 10*3/uL (1.4-4.0); Lymphocytes % 8.3 % (21.2-54.2); Mean Corpuscular HGB Conc 31.7 GM/DL (32-36); Mean Corpuscular Volume 81.7 FL (87-102); Mean Platelet Volume 9.5 FL (9.6-12.0); Monocytes # 1.3 10*3/uL (0.11-0.8); Monocytes % 9.7 % (1.7-12.7); Neutrophils % 80.6 % (38.7-73.9); Platelet Count 463 T/CUMM (130-400); Red Blood Count 3.67 MC/CUMM (3.8-5.5); Red Cell Distribution Width 23.5 % (9.3-17.3); White Blood Count 13.7 T/CUMM (4-12)
[2022-05-10 04:48] LABS: INR 1.2; PT Patient Result 12.9 SECS (10.1-12.1)
[2022-05-10 04:59] LABS: Hypochromia 1+; Microcytosis 1+
[2022-05-10 05:00] LABS: Anisocytosis 1+; Platelet Estimate Increased; Target Cells Few
[2022-05-10 05:12] LABS: Albumin 1.4 G/DL (3.4-5.0); Bilirubin,Total 0.4 MG/DL (0.20-1.00); Osmolality,Calculated 275.8 MOS/KG (273-304); Potassium 3.7 MMOL/L (3.5-5.1); Total Protein 5.6 G/DL (6.4-8.2)
[2022-05-10] MEDS: TIROFIBAN 5,000 MCG/100 ML PREMIX IV SCH ×2 (07:08→15:21)
[2022-05-10] MEDS: LEVALBUTEROL 1.25 MG/3 ML NEB RESP TX SCH ×3 (07:34→23:46)
[2022-05-10] MEDS: INSULIN LISPRO 100 UNIT/ML SUBCUT SCH ×4 (08:56→20:26)
[2022-05-10] MEDS: DOCUSATE SODIUM 100 MG CAPSULE PO SCH ×2 (09:04→20:25)
[2022-05-10] MEDS: LIPASE PO SCH ×3 (09:04→20:26)
[2022-05-10] MEDS: [UNRECOGNIZED DRUG - OTHER] PO SCH ×3 (09:04→20:26)
[2022-05-10] MEDS: FERROUS SULFATE 325 MG TABLET PO SCH (09:04)
[2022-05-10] MEDS: AMYLASE PO SCH ×3 (09:04→20:26)
[2022-05-10] MEDS: THIAMINE 100 MG TABLET PO SCH (09:04)
[2022-05-10] MEDS: CHOLECALCIFEROL 1,000 UNIT TABLET PO SCH (09:04)
[2022-05-10] MEDS: PROTEASE PO SCH ×3 (09:04→20:26)
[2022-05-10] MEDS: FOLIC ACID 1 MG TABLET PO SCH (09:04)
[2022-05-10] MEDS: POLYETHYLENE GLYCOL POWDER 17 GM PACK PO SCH (09:05)
[2022-05-10] MEDS: MAGNESIUM OXIDE 400 MG TABLET PO SCH (09:24)
[2022-05-10] MEDS: ENOXAPARIN 80 MG/0.8 ML SYRINGE SUBCUT SCH (09:24)
[2022-05-10] MEDS ORDERED: HYDROmorphone 1 MG/1 ML SYRINGE IV ONE (09:45)
[2022-05-10] MEDS: HEPARIN DRIP 25,000 UNITS/500 ML PREMIX IV SCH (13:13)
[2022-05-10 15:23] LABS: INR 1.2; PT Patient Result 12.6 SECS (10.1-12.1)
[2022-05-11] MEDS: cefTRIAXone 1,000 MG in SODIUM CHLORIDE 0.9% 100 ML IV SCH (00:05)
[2022-05-11] MEDS: HYDROmorphone 1 MG/1 ML SYRINGE IV PRN ×6 (00:20→21:15)
[2022-05-11] MEDS: ZALEPLON 5 MG CAPSULE PO PRN ×2 (00:20→21:15)
[2022-05-11] MEDS ORDERED: HEPARIN 5,000 UNIT/1 ML VIAL IV ONE (00:36)
[2022-05-11 05:12] LABS: Basophils % 0.3 % (0.0-0.8); Eosinophils # 0.3 10*3/uL (0.0-0.87); Eosinophils % 2.1 % (0.00-10.9); Hemoglobin 9.6 GM/DL (14.0-18.0); Immature Granulocytes % 0.5 %; Immature Granulocytes Absolute 0.06 #; Lymphocytes # 1.2 10*3/uL (1.4-4.0); Lymphocytes % 9.8 % (21.2-54.2); Mean Corpuscular Volume 80.6 FL (87-102); Mean Platelet Volume 9.6 FL (9.6-12.0); Monocytes # 1.2 10*3/uL (0.11-0.8); Monocytes % 9.3 % (1.7-12.7); Platelet Count 447 T/CUMM (130-400); Red Blood Count 3.72 MC/CUMM (3.8-5.5); Red Cell Distribution Width 23.1 % (9.3-17.3); White Blood Count 12.6 T/CUMM (4-12)
[2022-05-11 05:35] LABS: Alanine Aminotransferase 27 U/L (16-61); Albumin 1.5 G/DL (3.4-5.0); Alkaline Phosphatase 230 U/L (45-117); Aspartate Amino Transferase 57 U/L (0-37); Bilirubin,Total < 0.39 MG/DL (0.20-1.00); Blood Urea Nitrogen 11 MG/DL (7-18); Calcium 8.4 MG/DL (8.5-10.1); Carbon Dioxide 30 MMOL/L (21-32); Chloride 100 MMOL/L (98-107); Glucose 141 MG/DL (74-106); Osmolality,Calculated 268.2 MOS/KG (273-304); Sodium 134 MMOL/L (136-145); Total Protein 6.1 G/DL (6.4-8.2)
[2022-05-11] MEDS: LEVALBUTEROL 1.25 MG/3 ML NEB RESP TX SCH ×3 (06:57→23:50)
[2022-05-11] MEDS: INSULIN LISPRO 100 UNIT/ML SUBCUT SCH ×4 (07:41→21:23)
[2022-05-11] MEDS: DOCUSATE SODIUM 100 MG CAPSULE PO SCH ×3 (07:57→21:23)
[2022-05-11] MEDS: MAGNESIUM OXIDE 400 MG TABLET PO SCH ×2 (07:57→08:16)
[2022-05-11] MEDS: CHOLECALCIFEROL 1,000 UNIT TABLET PO SCH ×2 (07:57→08:16)
[2022-05-11] MEDS: FERROUS SULFATE 325 MG TABLET PO SCH (08:03)
[2022-05-11] MEDS: PROTEASE PO SCH ×3 (08:03→21:40)
[2022-05-11] MEDS: THIAMINE 100 MG TABLET PO SCH (08:03)
[2022-05-11] MEDS: FOLIC ACID 1 MG TABLET PO SCH (08:03)
[2022-05-11] MEDS: [UNRECOGNIZED DRUG - OTHER] PO SCH ×3 (08:03→21:40)
[2022-05-11] MEDS: LIPASE PO SCH ×3 (08:03→21:40)
[2022-05-11] MEDS: AMYLASE PO SCH ×3 (08:03→21:40)
[2022-05-11] MEDS: POLYETHYLENE GLYCOL POWDER 17 GM PACK PO SCH (08:03)
[2022-05-11 15:44] VITALS: BP 116/75
[2022-05-11] MEDS: HEPARIN DRIP 25,000 UNITS/500 ML PREMIX IV SCH (17:27)
[2022-05-11 20:21] LABS: Neutrophils,Peritoneal Fluid 86 %
[2022-05-11 20:22] LABS: RBC,Peritoneal Fluid 26760 T/CUMM
[2022-05-11 20:30] LABS: Glucose,Peritoneal Fluid 106 MG/DL; LDH,Peritoneal Fluid 425 U/L; Total Protein,Peritoneal Fluid 3.9 G/DL
[2022-05-11 20:34] LABS: Amylase,Peritoneal Fluid > 1300 U/L
[2022-05-12] MEDS: cefTRIAXone 1,000 MG in SODIUM CHLORIDE 0.9% 100 ML IV SCH ×2 (00:14→22:42)
[2022-05-12] MEDS: HYDROmorphone 1 MG/1 ML SYRINGE IV PRN ×2 (01:08→05:00)
[2022-05-12] MEDS: ZALEPLON 5 MG CAPSULE PO PRN ×3 (01:18→21:32)
[2022-05-12] MEDS: MAGNESIUM HYDROXIDE SUSP 30 ML UDCUP PO PRN (01:18)
[2022-05-12 05:26] LABS: Basophils % 0.4 % (0.0-0.8); Eosinophils # 0.6 10*3/uL (0.0-0.87); Eosinophils % 5.1 % (0.00-10.9); Hemoglobin 8.7 GM/DL (14.0-18.0); Immature Granulocytes % 0.4 %; Immature Granulocytes Absolute 0.04 #; Lymphocytes # 1.3 10*3/uL (1.4-4.0); Lymphocytes % 11.8 % (21.2-54.2); Mean Corpuscular HGB Conc 32.2 GM/DL (32-36); Mean Corpuscular Volume 81.6 FL (87-102); Mean Platelet Volume 9.9 FL (9.6-12.0); Monocytes # 0.9 10*3/uL (0.11-0.8); Monocytes % 7.7 % (1.7-12.7); Neutrophils % 74.6 % (38.7-73.9); Platelet Count 421 T/CUMM (130-400); Red Blood Count 3.31 MC/CUMM (3.8-5.5); Red Cell Distribution Width 23.1 % (9.3-17.3); White Blood Count 11.3 T/CUMM (4-12)
[2022-05-12] MEDS: INSULIN LISPRO 100 UNIT/ML SUBCUT SCH ×2 (07:41→13:03)
[2022-05-12] MEDS: LEVALBUTEROL 1.25 MG/3 ML NEB RESP TX SCH ×2 (07:46→14:19)
[2022-05-12] MEDS: HEPARIN DRIP 25,000 UNITS/500 ML PREMIX IV SCH (08:48)
[2022-05-12] MEDS: DOCUSATE SODIUM 100 MG CAPSULE PO SCH ×2 (08:51→20:22)
[2022-05-12] MEDS: MAGNESIUM OXIDE 400 MG TABLET PO SCH (08:51)
[2022-05-12] MEDS: THIAMINE 100 MG TABLET PO SCH (08:52)
[2022-05-12] MEDS: CHOLECALCIFEROL 1,000 UNIT TABLET PO SCH (08:52)
[2022-05-12] MEDS: FERROUS SULFATE 325 MG TABLET PO SCH (08:52)
[2022-05-12] MEDS: FOLIC ACID 1 MG TABLET PO SCH (08:52)
[2022-05-12] MEDS: PROTEASE PO SCH ×3 (10:07→20:22)
[2022-05-12] MEDS: AMYLASE PO SCH ×3 (10:07→20:22)
[2022-05-12] MEDS: [UNRECOGNIZED DRUG - OTHER] PO SCH ×3 (10:07→20:22)
[2022-05-12] MEDS: LIPASE PO SCH ×3 (10:07→20:22)
[2022-05-12] MEDS: POLYETHYLENE GLYCOL POWDER 17 GM PACK PO SCH (10:24)
[2022-05-12] MEDS: APIXABAN 5 MG TABLET PO SCH ×2 (12:35→20:22)
[2022-05-12] MEDS: ACETAMINOPHEN 325 MG TABLET PO PRN ×2 (16:50→22:42)
[2022-05-12] MEDS: ONDANSETRON 4 MG/2 ML VIAL IV PRN (20:22)
[2022-05-13] MEDS: LEVALBUTEROL 1.25 MG/3 ML NEB RESP TX SCH ×3 (00:12→14:06)
[2022-05-13] MEDS: ONDANSETRON 4 MG/2 ML VIAL IV PRN (03:05)
[2022-05-13] MEDS: ACETAMINOPHEN 325 MG TABLET PO PRN ×2 (04:40→11:15)
[2022-05-13 06:13] LABS: Basophils % 0.3 % (0.0-0.8); Eosinophils # 0.6 10*3/uL (0.0-0.87); Eosinophils % 5.2 % (0.00-10.9); Hematocrit 25.7 VOL% (42.0-52.0); Hemoglobin 8.2 GM/DL (14.0-18.0); Immature Granulocytes % 0.5 %; Immature Granulocytes Absolute 0.06 #; Lymphocytes # 1.1 10*3/uL (1.4-4.0); Lymphocytes % 9.3 % (21.2-54.2); Mean Corpuscular HGB Conc 31.9 GM/DL (32-36); Mean Corpuscular Volume 81.8 FL (87-102); Mean Platelet Volume 9.6 FL (9.6-12.0); Monocytes # 0.9 10*3/uL (0.11-0.8); Monocytes % 7.9 % (1.7-12.7); Neutrophils % 76.8 % (38.7-73.9); Platelet Count 390 T/CUMM (130-400); Red Blood Count 3.14 MC/CUMM (3.8-5.5); Red Cell Distribution Width 22.7 % (9.3-17.3); White Blood Count 11.3 T/CUMM (4-12)
[2022-05-13 06:31] LABS: Osmolality,Calculated 276.7 MOS/KG (273-304)
[2022-05-13 06:31] LABS: Hypochromia 1+; Microcytosis 1+; Target Cells Few
[2022-05-13] MEDS: POLYETHYLENE GLYCOL POWDER 17 GM PACK PO SCH (08:54)
[2022-05-13] MEDS: FOLIC ACID 1 MG TABLET PO SCH (08:54)
[2022-05-13] MEDS: FERROUS SULFATE 325 MG TABLET PO SCH (08:54)
[2022-05-13] MEDS: CHOLECALCIFEROL 1,000 UNIT TABLET PO SCH (08:55)
[2022-05-13] MEDS: APIXABAN 5 MG TABLET PO SCH (08:55)
[2022-05-13] MEDS: DOCUSATE SODIUM 100 MG CAPSULE PO SCH (08:55)
[2022-05-13] MEDS: THIAMINE 100 MG TABLET PO SCH (08:56)
[2022-05-13] MEDS: MAGNESIUM OXIDE 400 MG TABLET PO SCH (08:56)
[2022-05-13] MEDS: AMYLASE PO SCH (09:27)
[2022-05-13] MEDS: [UNRECOGNIZED DRUG - OTHER] PO SCH (09:27)
[2022-05-13] MEDS: PROTEASE PO SCH (09:27)
[2022-05-13] MEDS: LIPASE PO SCH (09:27)
[2022-05-13] MEDS ORDERED: METOPROLOL TARTRATE 25 MG TABLET PO SCH (11:00)
== END 2022-05-13 14:48 | disposition home or self-care (01) | DRG 371 ==
LOC: EDUNIT# → EDBD → N.ED 17:10 → N.EDINP 23:12 → SUATTDRO 23:12 → N.3E 23:52 → N.ICU 05-09 17:49
PROVIDERS: ADMIT Emergency Medicine; ATTEND Hospitalist
PROC: CLCCHCL (ICD-10-PCS; 2022-05-09 18:30)

== ENCOUNTER 2022-05-14 16:59 | Inpatient (IN) ==
[2022-05-14] MEDS ORDERED: PIPERACILLIN/TAZOBACTAM 3,375 MG in SODIUM CHLORIDE 0.9% 100 ML IV STA (19:28)
[2022-05-14] MEDS ORDERED: PANTOPRAZOLE 40 MG VIAL IV STA (19:28)
[2022-05-14] MEDS ORDERED: HYDROmorphone 1 MG/1 ML SYRINGE IV STA ×2 (19:28→21:38)
[2022-05-14] MEDS ORDERED: ONDANSETRON 4 MG/2 ML VIAL IV STA (19:28)
[2022-05-14 20:29] LABS: Basophils % 0.3 % (0.0-0.8); Eosinophils # 0.4 10*3/uL (0.0-0.87); Eosinophils % 3.1 % (0.00-10.9); Hematocrit 30.3 VOL% (42.0-52.0); Hemoglobin 9.5 GM/DL (14.0-18.0); Immature Granulocytes % 0.5 %; Immature Granulocytes Absolute 0.06 #; Lymphocytes # 1.2 10*3/uL (1.4-4.0); Lymphocytes % 9.9 % (21.2-54.2); Mean Corpuscular HGB Conc 31.4 GM/DL (32-36); Mean Corpuscular Volume 82.8 FL (87-102); Mean Platelet Volume 9.4 FL (9.6-12.0); Monocytes # 0.8 10*3/uL (0.11-0.8); Monocytes % 6.7 % (1.7-12.7); Neutrophils % 79.5 % (38.7-73.9); Platelet Count 473 T/CUMM (130-400); Red Blood Count 3.66 MC/CUMM (3.8-5.5); Red Cell Distribution Width 22.5 % (9.3-17.3); White Blood Count 12.4 T/CUMM (4-12)
[2022-05-14 20:52] LABS: Alanine Aminotransferase 31 U/L (16-61); Albumin 1.5 G/DL (3.4-5.0); Alkaline Phosphatase 310 U/L (45-117); Aspartate Amino Transferase 34 U/L (0-37); Bilirubin,Total < 0.39 MG/DL (0.20-1.00); Blood Urea Nitrogen 10 MG/DL (7-18); Calcium 8.6 MG/DL (8.5-10.1); Carbon Dioxide 28 MMOL/L (21-32); Chloride 103 MMOL/L (98-107); Glucose 107 MG/DL (74-106); Osmolality,Calculated 273.7 MOS/KG (273-304); Potassium 4.6 MMOL/L (3.5-5.1); Sodium 138 MMOL/L (136-145); Total Protein 5.7 G/DL (6.4-8.2)
[2022-05-14 21:09] LABS: Amylase 628 U/L (25-115)
[2022-05-14 21:18] LABS: Hypochromia Slight; Platelet Estimate Increased
[2022-05-14 21:19] LABS: Anisocytosis 1+; Polychromasia Few; Target Cells Slight
[2022-05-14 21:20] LABS: Macrocytosis 1+
[2022-05-14] MEDS ORDERED: ACETAMINOPHEN 325 MG TABLET PO PRN (21:56)
[2022-05-14] MEDS ORDERED: hydrALAZINE 20 MG/1 ML VIAL IV PRN (21:56)
[2022-05-14] MEDS ORDERED: APIXABAN 5 MG PO SCH (22:13)
[2022-05-14] MEDS ORDERED: FUROSEMIDE 40 MG/4 ML VIAL IV STA (22:13)
[2022-05-14] MEDS: CIPROFLOXACIN 500 MG TABLET PO SCH (22:41)
[2022-05-14] MEDS: METOPROLOL TARTRATE 25 MG TABLET PO SCH (22:41)
[2022-05-14] MEDS ORDERED: ALBUTEROL 2.5 MG/3 ML NEB RESP TX ONE ×2 (23:07→23:50)
[2022-05-14 23:34] LABS: Bacteria,Urine Occasional /HPF (Few); Mucus,Urine Occasional /LPF (Occasional); Squamous Epithelial Cell,Urine Occasional /HPF (0-10)
[2022-05-14 23:35] LABS: Bilirubin,Urine Negative (Negative); Blood, Urine Negative (Negative); Glucose,Urine (UA) Negative (Negative); Ketones,Urine Negative (Negative); Nitrite,Urine Negative (Negative); Protein,Urine Negative (Negative); Urine Appearance Clear (Clear); Urine Color Yellow (Yellow); Urine Specific Gravity 1.015 (1.001-1.035); Urine Urobilinogen 0.2 eU/dL (<2.0)
[2022-05-14 23:43] LABS: Barbiturates Screen,Urine Negative (Negative); Benzodiazepines Screen,Urine Negative (Negative); Cannabinoid Screen,Urine Negative (Negative); Opiate Screen,Urine Positive (Negative); Phencyclidine Screen,Urine Negative (Negative)
[2022-05-14] MEDS: HYDROmorphone 1 MG/1 ML SYRINGE IV PRN (23:47)
[2022-05-15] MEDS: cefTRIAXone 2,000 MG in SODIUM CHLORIDE 0.9% 100 ML IV SCH (00:06)
[2022-05-15] MEDS: MELATONIN 3 MG TABLET PO PRN (01:42)
[2022-05-15] MEDS: ALBUTEROL 2.5 MG/3 ML NEB RESP TX SCH ×4 (04:32→19:07)
[2022-05-15 06:20] LABS: Basophils # 0.1 10*3/uL (0.0-0.2); Basophils % 0.5 % (0.0-0.8); Eosinophils # 0.7 10*3/uL (0.0-0.87); Eosinophils % 6.7 % (0.00-10.9); Hematocrit 27.2 VOL% (42.0-52.0); Hemoglobin 8.5 GM/DL (14.0-18.0); Immature Granulocytes % 0.4 %; Immature Granulocytes Absolute 0.04 #; Lymphocytes # 1.4 10*3/uL (1.4-4.0); Lymphocytes % 12.8 % (21.2-54.2); Mean Corpuscular HGB Conc 31.3 GM/DL (32-36); Mean Corpuscular Volume 82.2 FL (87-102); Mean Platelet Volume 9.3 FL (9.6-12.0); Monocytes # 0.9 10*3/uL (0.11-0.8); Monocytes % 8.4 % (1.7-12.7); Neutrophils % 71.2 % (38.7-73.9); Platelet Count 467 T/CUMM (130-400); Red Blood Count 3.31 MC/CUMM (3.8-5.5); Red Cell Distribution Width 22.2 % (9.3-17.3); White Blood Count 10.6 T/CUMM (4-12)
[2022-05-15 06:41] LABS: Hypochromia 1+; Microcytosis Slight
[2022-05-15 06:42] LABS: Platelet Estimate Increased
[2022-05-15] MEDS: HYDROmorphone 1 MG/1 ML SYRINGE IV PRN ×4 (06:44→20:41)
[2022-05-15 06:53] LABS: Alanine Aminotransferase 27 U/L (16-61); Albumin 1.4 G/DL (3.4-5.0); Alkaline Phosphatase 278 U/L (45-117); Aspartate Amino Transferase 32 U/L (0-37); Bilirubin,Total < 0.39 MG/DL (0.20-1.00); Blood Urea Nitrogen 6 MG/DL (7-18); Calcium 8.5 MG/DL (8.5-10.1); Carbon Dioxide 28 MMOL/L (21-32); Chloride 104 MMOL/L (98-107); Glucose 123 MG/DL (74-106); Osmolality,Calculated 273.7 MOS/KG (273-304); Sodium 138 MMOL/L (136-145); Total Protein 6.2 G/DL (6.4-8.2)
[2022-05-15] MEDS: MULTIVITAMIN (BEROCCA) TABLET PO SCH (09:29)
[2022-05-15] MEDS: CIPROFLOXACIN 500 MG TABLET PO SCH (09:29)
[2022-05-15] MEDS: DOCUSATE SODIUM 100 MG CAPSULE PO SCH ×4 (09:33→20:43)
[2022-05-15] MEDS: FERROUS SULFATE 325 MG TABLET PO SCH (09:37)
[2022-05-15] MEDS: PANCRELIPASE PO SCH ×3 (09:38→20:43)
[2022-05-15] MEDS: THIAMINE 100 MG TABLET PO SCH (09:38)
[2022-05-15] MEDS: METOPROLOL TARTRATE 25 MG TABLET PO SCH ×2 (09:38→20:37)
[2022-05-15] MEDS: POLYETHYLENE GLYCOL POWDER 17 GM PACK PO SCH (09:38)
[2022-05-15] MEDS: PANTOPRAZOLE 40 MG TABLET PO SCH (09:38)
[2022-05-15] MEDS: FOLIC ACID 1 MG TABLET PO SCH (09:38)
[2022-05-15] MEDS: guaiFENesin/DM ER 600-30 MG TABLET PO SCH ×2 (09:38→20:37)
[2022-05-15] MEDS: MAGNESIUM OXIDE 400 MG TABLET PO SCH (09:38)
[2022-05-15] MEDS: CHOLECALCIFEROL 1,000 UNIT TABLET PO SCH (09:39)
[2022-05-15] MEDS: ENOXAPARIN 60 MG/0.6 ML SYRINGE SUBCUT SCH (20:37)
[2022-05-15] MEDS ORDERED: APIXABAN 5 MG TABLET PO SCH (22:45)
[2022-05-16] MEDS: cefTRIAXone 2,000 MG in SODIUM CHLORIDE 0.9% 100 ML IV SCH ×2 (00:10→23:00)
[2022-05-16] MEDS: ALBUTEROL 2.5 MG/3 ML NEB RESP TX SCH ×4 (00:23→20:39)
[2022-05-16] MEDS: HYDROmorphone 1 MG/1 ML SYRINGE IV PRN ×4 (01:25→21:50)
[2022-05-16] MEDS: ENOXAPARIN 60 MG/0.6 ML SYRINGE SUBCUT SCH ×2 (09:20→21:10)
[2022-05-16] MEDS: PANCRELIPASE PO SCH ×3 (09:20→21:10)
[2022-05-16] MEDS: FERROUS SULFATE 325 MG TABLET PO SCH (09:20)
[2022-05-16] MEDS: DOCUSATE SODIUM 100 MG CAPSULE PO SCH ×4 (09:20→21:10)
[2022-05-16] MEDS: MULTIVITAMIN (BEROCCA) TABLET PO SCH (09:20)
[2022-05-16] MEDS: METOPROLOL TARTRATE 25 MG TABLET PO SCH ×2 (09:20→21:10)
[2022-05-16] MEDS: FOLIC ACID 1 MG TABLET PO SCH (09:20)
[2022-05-16] MEDS: POLYETHYLENE GLYCOL POWDER 17 GM PACK PO SCH (09:20)
[2022-05-16] MEDS: MAGNESIUM OXIDE 400 MG TABLET PO SCH (09:20)
[2022-05-16] MEDS: guaiFENesin/DM ER 600-30 MG TABLET PO SCH ×2 (09:21→21:10)
[2022-05-16] MEDS: PANTOPRAZOLE 40 MG TABLET PO SCH (09:21)
[2022-05-16] MEDS: CHOLECALCIFEROL 1,000 UNIT TABLET PO SCH (09:21)
[2022-05-16] MEDS: THIAMINE 100 MG TABLET PO SCH (09:21)
[2022-05-16] MEDS: ONDANSETRON 4 MG/2 ML VIAL IV PRN (11:23)
[2022-05-17] MEDS: ALBUTEROL 2.5 MG/3 ML NEB RESP TX SCH ×5 (01:52→20:45)
[2022-05-17] MEDS: HYDROmorphone 1 MG/1 ML SYRINGE IV PRN ×5 (03:15→20:28)
[2022-05-17] MEDS: PANCRELIPASE PO SCH ×3 (08:36→20:28)
[2022-05-17] MEDS: METOPROLOL TARTRATE 25 MG TABLET PO SCH ×2 (08:38→20:27)
[2022-05-17] MEDS: PANTOPRAZOLE 40 MG TABLET PO SCH (08:40)
[2022-05-17] MEDS: FOLIC ACID 1 MG TABLET PO SCH (08:40)
[2022-05-17] MEDS: CHOLECALCIFEROL 1,000 UNIT TABLET PO SCH (08:40)
[2022-05-17] MEDS: guaiFENesin/DM ER 600-30 MG TABLET PO SCH ×2 (08:40→20:27)
[2022-05-17] MEDS: DOCUSATE SODIUM 100 MG CAPSULE PO SCH ×4 (08:42→22:42)
[2022-05-17] MEDS: THIAMINE 100 MG TABLET PO SCH (08:42)
[2022-05-17] MEDS: POLYETHYLENE GLYCOL POWDER 17 GM PACK PO SCH (08:42)
[2022-05-17] MEDS: MULTIVITAMIN (BEROCCA) TABLET PO SCH (08:42)
[2022-05-17] MEDS: MAGNESIUM OXIDE 400 MG TABLET PO SCH (08:42)
[2022-05-17] MEDS: FERROUS SULFATE 325 MG TABLET PO SCH (08:42)
[2022-05-17] MEDS: NICOTINE 21 MG/24 HR PATCH TRANSDERM SCH (15:36)
[2022-05-17] MEDS: MELATONIN 3 MG TABLET PO PRN (20:27)
[2022-05-17] MEDS: cefTRIAXone 2,000 MG in SODIUM CHLORIDE 0.9% 100 ML IV SCH (23:26)
[2022-05-18] MEDS: HYDROmorphone 1 MG/1 ML SYRINGE IV PRN ×6 (00:13→20:59)
[2022-05-18] MEDS ORDERED: BISACODYL 5 MG TABLET PO PRN (00:17)
[2022-05-18] MEDS: ALBUTEROL 2.5 MG/3 ML NEB RESP TX SCH ×4 (01:34→18:02)
[2022-05-18 04:23] LABS: Basophils % 0.3 % (0.0-0.8); Eosinophils # 0.2 10*3/uL (0.0-0.87); Eosinophils % 2.1 % (0.00-10.9); Hematocrit 30.5 VOL% (42.0-52.0); Hemoglobin 9.1 GM/DL (14.0-18.0); Immature Granulocytes % 0.4 %; Immature Granulocytes Absolute 0.04 #; Lymphocytes # 1.4 10*3/uL (1.4-4.0); Lymphocytes % 13.8 % (21.2-54.2); Mean Corpuscular HGB Conc 29.8 GM/DL (32-36); Mean Corpuscular Volume 85.9 FL (87-102); Mean Platelet Volume 10.4 FL (9.6-12.0); Monocytes # 0.7 10*3/uL (0.11-0.8); Monocytes % 7.2 % (1.7-12.7); Neutrophils % 76.2 % (38.7-73.9); Platelet Count 379 T/CUMM (130-400); Red Blood Count 3.55 MC/CUMM (3.8-5.5); Red Cell Distribution Width 21.9 % (9.3-17.3); White Blood Count 10.3 T/CUMM (4-12)
[2022-05-18 04:51] LABS: Calcium 7.9 MG/DL (8.5-10.1); Osmolality,Calculated 273.7 MOS/KG (273-304); Potassium 4.5 MMOL/L (3.5-5.1)
[2022-05-18] MEDS: METOPROLOL TARTRATE 25 MG TABLET PO SCH ×2 (08:18→20:58)
[2022-05-18] MEDS: CHOLECALCIFEROL 1,000 UNIT TABLET PO SCH (08:18)
[2022-05-18] MEDS: PANTOPRAZOLE 40 MG TABLET PO SCH (08:18)
[2022-05-18] MEDS: MAGNESIUM OXIDE 400 MG TABLET PO SCH (08:18)
[2022-05-18] MEDS: MULTIVITAMIN (BEROCCA) TABLET PO SCH (08:18)
[2022-05-18] MEDS: THIAMINE 100 MG TABLET PO SCH (08:18)
[2022-05-18] MEDS: guaiFENesin/DM ER 600-30 MG TABLET PO SCH ×2 (08:18→20:58)
[2022-05-18] MEDS: DOCUSATE SODIUM 100 MG CAPSULE PO SCH ×2 (08:18→20:58)
[2022-05-18] MEDS: POLYETHYLENE GLYCOL POWDER 17 GM PACK PO SCH (08:19)
[2022-05-18] MEDS: FERROUS SULFATE 325 MG TABLET PO SCH (08:19)
[2022-05-18] MEDS: FOLIC ACID 1 MG TABLET PO SCH (08:19)
[2022-05-18] MEDS: PANCRELIPASE PO SCH (08:23)
[2022-05-18] MEDS: NICOTINE 21 MG/24 HR PATCH TRANSDERM SCH (08:23)
[2022-05-18] MEDS: LIPASE/PROTEASE/AMYLASE 4,200 UNITS CAPSULE PO SCH ×2 (12:34→16:58)
[2022-05-18 15:19] LABS: Amylase,Peritoneal Fluid > 1300 U/L
[2022-05-18 16:11] LABS: Neutrophils,Peritoneal Fluid 77 %; RBC,Peritoneal Fluid 13163 T/CUMM
[2022-05-19] MEDS: cefTRIAXone 2,000 MG in SODIUM CHLORIDE 0.9% 100 ML IV SCH (00:22)
[2022-05-19] MEDS: HYDROmorphone 1 MG/1 ML SYRINGE IV PRN ×6 (00:55→21:50)
[2022-05-19] MEDS: ALBUTEROL 2.5 MG/3 ML NEB RESP TX SCH ×4 (02:24→20:10)
[2022-05-19 06:14] LABS: Basophils % 0.4 % (0.0-0.8); Eosinophils # 0.4 10*3/uL (0.0-0.87); Eosinophils % 4.1 % (0.00-10.9); Hematocrit 30.4 VOL% (42.0-52.0); Hemoglobin 9.5 GM/DL (14.0-18.0); Immature Granulocytes % 0.3 %; Immature Granulocytes Absolute 0.03 #; Lymphocytes # 1.8 10*3/uL (1.4-4.0); Lymphocytes % 17.9 % (21.2-54.2); Mean Corpuscular HGB Conc 31.3 GM/DL (32-36); Mean Corpuscular Volume 85.2 FL (87-102); Monocytes # 0.9 10*3/uL (0.11-0.8); Neutrophils % 68.3 % (38.7-73.9); Platelet Count 664 T/CUMM (130-400); Red Blood Count 3.57 MC/CUMM (3.8-5.5); Red Cell Distribution Width 21.6 % (9.3-17.3); White Blood Count 10.1 T/CUMM (4-12)
[2022-05-19 06:32] LABS: Calcium 8.7 MG/DL (8.5-10.1); Osmolality,Calculated 276.4 MOS/KG (273-304); Potassium 4.6 MMOL/L (3.5-5.1)
[2022-05-19] MEDS: THIAMINE 100 MG TABLET PO SCH (08:36)
[2022-05-19] MEDS: MULTIVITAMIN (BEROCCA) TABLET PO SCH (08:36)
[2022-05-19] MEDS: FOLIC ACID 1 MG TABLET PO SCH (08:36)
[2022-05-19] MEDS: MAGNESIUM OXIDE 400 MG TABLET PO SCH (08:36)
[2022-05-19] MEDS: CHOLECALCIFEROL 1,000 UNIT TABLET PO SCH (08:36)
[2022-05-19] MEDS: FERROUS SULFATE 325 MG TABLET PO SCH (08:36)
[2022-05-19] MEDS: DOCUSATE SODIUM 100 MG CAPSULE PO SCH ×2 (08:36→20:23)
[2022-05-19] MEDS: guaiFENesin/DM ER 600-30 MG TABLET PO SCH ×2 (08:36→20:23)
[2022-05-19] MEDS: LIPASE/PROTEASE/AMYLASE 4,200 UNITS CAPSULE PO SCH ×3 (08:36→18:13)
[2022-05-19] MEDS: PANTOPRAZOLE 40 MG TABLET PO SCH (08:37)
[2022-05-19] MEDS: METOPROLOL TARTRATE 25 MG TABLET PO SCH ×2 (08:37→20:23)
[2022-05-19] MEDS: NICOTINE 21 MG/24 HR PATCH TRANSDERM SCH (08:38)
[2022-05-19] MEDS: POLYETHYLENE GLYCOL POWDER 17 GM PACK PO SCH (08:38)
[2022-05-19] MEDS ORDERED: HEPARIN DRIP 25,000 UNITS/500 ML PREMIX IV SCH (14:30)
[2022-05-19] MEDS: MELATONIN 3 MG TABLET PO PRN (20:23)
[2022-05-19] MEDS ORDERED: HEPARIN 5,000 UNIT/1 ML VIAL IV ONE (20:27)
[2022-05-19] MEDS ORDERED: APIXABAN 5 MG TABLET PO SCH (21:00)
[2022-05-20] MEDS: cefTRIAXone 2,000 MG in SODIUM CHLORIDE 0.9% 100 ML IV SCH ×2 (00:20→23:12)
[2022-05-20] MEDS: ALBUTEROL 2.5 MG/3 ML NEB RESP TX SCH ×5 (00:22→23:49)
[2022-05-20] MEDS: HYDROmorphone 1 MG/1 ML SYRINGE IV PRN ×5 (01:20→20:46)
[2022-05-20 01:40] LABS: INR 1.2; PT Patient Result 13.3 SECS (10.1-12.1)
[2022-05-20] MEDS ORDERED: INDOMETHACIN SUPP 50 MG SUPP RECTAL ONE ×2 (06:54→08:00)
[2022-05-20] MEDS ORDERED: APIXABAN 5 MG TABLET PO SCH (09:00)
[2022-05-20] MEDS: DOCUSATE SODIUM 100 MG CAPSULE PO SCH ×2 (10:51→20:46)
[2022-05-20] MEDS: FERROUS SULFATE 325 MG TABLET PO SCH (10:51)
[2022-05-20] MEDS: METOPROLOL TARTRATE 25 MG TABLET PO SCH ×2 (10:51→20:46)
[2022-05-20] MEDS: LIPASE/PROTEASE/AMYLASE 4,200 UNITS CAPSULE PO SCH ×3 (10:51→16:39)
[2022-05-20] MEDS: MULTIVITAMIN (BEROCCA) TABLET PO SCH (10:51)
[2022-05-20] MEDS: FOLIC ACID 1 MG TABLET PO SCH (10:51)
[2022-05-20] MEDS: CHOLECALCIFEROL 1,000 UNIT TABLET PO SCH (10:52)
[2022-05-20] MEDS: THIAMINE 100 MG TABLET PO SCH (10:52)
[2022-05-20] MEDS: POLYETHYLENE GLYCOL POWDER 17 GM PACK PO SCH (10:52)
[2022-05-20] MEDS: PANTOPRAZOLE 40 MG TABLET PO SCH (10:52)
[2022-05-20] MEDS: MAGNESIUM OXIDE 400 MG TABLET PO SCH (10:52)
[2022-05-20] MEDS: guaiFENesin/DM ER 600-30 MG TABLET PO SCH ×2 (10:52→20:47)
[2022-05-20] MEDS: LACTATED RINGERS 1,000 ML IV SCH ×2 (11:47→12:59)
[2022-05-20] MEDS ORDERED: GLUCAGON 1 MG VIAL ONE (13:06)
[2022-05-20] MEDS ORDERED: PHENYLEPHRINE 1 MG/10 ML SYRINGE IV ONE ×2 (13:10→13:51)
[2022-05-20] MEDS ORDERED: SUCCINYLCHOLINE 200 MG/10 ML VIAL ONE (13:51)
[2022-05-20] MEDS ORDERED: LIDOCAINE 2% 5 ML VIAL ONE (13:51)
[2022-05-20] MEDS ORDERED: SEVOFLURANE 1 UNIT/15 MINUTE INH ONE (13:51)
[2022-05-20] MEDS: NICOTINE 21 MG/24 HR PATCH TRANSDERM SCH (17:27)
[2022-05-20] MEDS: MELATONIN 3 MG TABLET PO PRN (20:46)
[2022-05-21] MEDS: HYDROmorphone 1 MG/1 ML SYRINGE IV PRN ×4 (01:07→18:31)
[2022-05-21] MEDS: ALBUTEROL 2.5 MG/3 ML NEB RESP TX SCH ×3 (07:32→20:38)
[2022-05-21] MEDS ORDERED: INDOMETHACIN SUPP 50 MG SUPP RECTAL ONE (08:30)
[2022-05-21 09:06] LABS: Basophils % 0.3 % (0.0-0.8); Eosinophils # 0.3 10*3/uL (0.0-0.87); Eosinophils % 2.5 % (0.00-10.9); Hematocrit 31.6 VOL% (42.0-52.0); Hemoglobin 9.6 GM/DL (14.0-18.0); Immature Granulocytes % 0.6 %; Immature Granulocytes Absolute 0.06 #; Lymphocytes # 1.5 10*3/uL (1.4-4.0); Lymphocytes % 15.2 % (21.2-54.2); Mean Corpuscular HGB Conc 30.4 GM/DL (32-36); Mean Corpuscular Volume 85.6 FL (87-102); Mean Platelet Volume 8.9 FL (9.6-12.0); Monocytes # 0.8 10*3/uL (0.11-0.8); Monocytes % 7.5 % (1.7-12.7); Neutrophils % 73.9 % (38.7-73.9); Platelet Count 671 T/CUMM (130-400); Red Blood Count 3.69 MC/CUMM (3.8-5.5); Red Cell Distribution Width 21.2 % (9.3-17.3)
[2022-05-21 09:15] LABS: PT Patient Result 11.3 SECS (10.1-12.1)
[2022-05-21 09:19] LABS: Calcium 8.1 MG/DL (8.5-10.1); Osmolality,Calculated 275.5 MOS/KG (273-304); Potassium 4.5 MMOL/L (3.5-5.1)
[2022-05-21] MEDS ORDERED: SEVOFLURANE 1 UNIT/15 MINUTE INH ONE (11:34)
[2022-05-21] MEDS ORDERED: fentaNYL 100 MCG/2 ML VIAL ONE (11:34)
[2022-05-21] MEDS ORDERED: propofoL 200 MG/20 ML VIAL IV ONE (11:34)
[2022-05-21] MEDS ORDERED: MIDAZOLAM 2 MG/2 ML VIAL ONE (11:34)
[2022-05-21] MEDS ORDERED: NEOSTIGMINE 10 MG/10 ML VIAL ONE (11:34)
[2022-05-21] MEDS ORDERED: LIDOCAINE 2% 5 ML VIAL ONE (11:34)
[2022-05-21] MEDS ORDERED: PHENYLEPHRINE DRIP 20 MG/250 ML PREMIX IV ONE (11:35)
[2022-05-21] MEDS ORDERED: ONDANSETRON 4 MG/2 ML VIAL ONE (11:35)
[2022-05-21] MEDS ORDERED: SUCCINYLCHOLINE 200 MG/10 ML VIAL ONE (11:35)
[2022-05-21] MEDS ORDERED: GLYCOPYRROLATE 0.4 MG/2 ML VIAL ONE (11:35)
[2022-05-21] MEDS ORDERED: ROCURONIUM 50 MG/5 ML VIAL IV ONE (11:36)
[2022-05-21] MEDS: DOCUSATE SODIUM 100 MG CAPSULE PO SCH ×2 (13:09→21:33)
[2022-05-21] MEDS: LACTATED RINGERS 1,000 ML IV SCH ×2 (13:09→15:05)
[2022-05-21] MEDS: MULTIVITAMIN (BEROCCA) TABLET PO SCH (13:09)
[2022-05-21] MEDS: LIPASE/PROTEASE/AMYLASE 4,200 UNITS CAPSULE PO SCH ×2 (13:09→17:10)
[2022-05-21] MEDS: FERROUS SULFATE 325 MG TABLET PO SCH (13:09)
[2022-05-21] MEDS: guaiFENesin/DM ER 600-30 MG TABLET PO SCH ×2 (13:10→21:30)
[2022-05-21] MEDS: FOLIC ACID 1 MG TABLET PO SCH (13:10)
[2022-05-21] MEDS: NICOTINE 21 MG/24 HR PATCH TRANSDERM SCH (13:10)
[2022-05-21] MEDS: METOPROLOL TARTRATE 25 MG TABLET PO SCH ×2 (13:10→21:24)
[2022-05-21] MEDS: MAGNESIUM OXIDE 400 MG TABLET PO SCH (13:10)
[2022-05-21] MEDS: POLYETHYLENE GLYCOL POWDER 17 GM PACK PO SCH (13:10)
[2022-05-21] MEDS: PANTOPRAZOLE 40 MG TABLET PO SCH (13:11)
[2022-05-21] MEDS: THIAMINE 100 MG TABLET PO SCH (13:11)
[2022-05-21] MEDS: CHOLECALCIFEROL 1,000 UNIT TABLET PO SCH (13:11)
[2022-05-21] MEDS: MELATONIN 3 MG TABLET PO PRN (21:32)
[2022-05-22] MEDS: ALBUTEROL 2.5 MG/3 ML NEB RESP TX SCH ×4 (01:00→20:50)
[2022-05-22] MEDS: cefTRIAXone 2,000 MG in SODIUM CHLORIDE 0.9% 100 ML IV SCH (01:26)
[2022-05-22] MEDS: HYDROmorphone 1 MG/1 ML SYRINGE IV PRN ×6 (01:27→23:30)
[2022-05-22 05:31] LABS: Basophils # 0.1 10*3/uL (0.0-0.2); Basophils % 0.5 % (0.0-0.8); Eosinophils # 0.3 10*3/uL (0.0-0.87); Eosinophils % 2.6 % (0.00-10.9); Hemoglobin 9.4 GM/DL (14.0-18.0); Immature Granulocytes % 0.6 %; Immature Granulocytes Absolute 0.07 #; Lymphocytes # 1.3 10*3/uL (1.4-4.0); Lymphocytes % 10.6 % (21.2-54.2); Mean Corpuscular HGB Conc 30.3 GM/DL (32-36); Mean Corpuscular Volume 85.4 FL (87-102); Mean Platelet Volume 8.5 FL (9.6-12.0); Monocytes # 0.9 10*3/uL (0.11-0.8); Monocytes % 6.9 % (1.7-12.7); Neutrophils % 78.8 % (38.7-73.9); Platelet Count 658 T/CUMM (130-400); Red Blood Count 3.63 MC/CUMM (3.8-5.5); Red Cell Distribution Width 21.1 % (9.3-17.3); White Blood Count 12.5 T/CUMM (4-12)
[2022-05-22 05:51] LABS: Alanine Aminotransferase 20 U/L (16-61); Albumin 1.5 G/DL (3.4-5.0); Alkaline Phosphatase 204 U/L (45-117); Aspartate Amino Transferase 17 U/L (0-37); Bilirubin,Total < 0.39 MG/DL (0.20-1.00); Blood Urea Nitrogen 9 MG/DL (7-18); Calcium 8.5 MG/DL (8.5-10.1); Carbon Dioxide 25 MMOL/L (21-32); Chloride 106 MMOL/L (98-107); Glucose 153 MG/DL (74-106); Osmolality,Calculated 276.7 MOS/KG (273-304); Potassium 4.4 MMOL/L (3.5-5.1); Sodium 138 MMOL/L (136-145); Total Protein 6.1 G/DL (6.4-8.2)
[2022-05-22] MEDS: METOPROLOL TARTRATE 25 MG TABLET PO SCH ×2 (08:39→20:23)
[2022-05-22] MEDS: FOLIC ACID 1 MG TABLET PO SCH (08:39)
[2022-05-22] MEDS: LIPASE/PROTEASE/AMYLASE 4,200 UNITS CAPSULE PO SCH ×3 (08:39→17:53)
[2022-05-22] MEDS: FERROUS SULFATE 325 MG TABLET PO SCH (08:39)
[2022-05-22] MEDS: CHOLECALCIFEROL 1,000 UNIT TABLET PO SCH (08:39)
[2022-05-22] MEDS: NICOTINE 21 MG/24 HR PATCH TRANSDERM SCH (08:39)
[2022-05-22] MEDS: DOCUSATE SODIUM 100 MG CAPSULE PO SCH ×2 (08:39→20:23)
[2022-05-22] MEDS: MULTIVITAMIN (BEROCCA) TABLET PO SCH (08:39)
[2022-05-22] MEDS: PANTOPRAZOLE 40 MG TABLET PO SCH (08:39)
[2022-05-22] MEDS: POLYETHYLENE GLYCOL POWDER 17 GM PACK PO SCH (08:39)
[2022-05-22] MEDS: guaiFENesin/DM ER 600-30 MG TABLET PO SCH ×2 (08:39→20:23)
[2022-05-22] MEDS: THIAMINE 100 MG TABLET PO SCH (08:40)
[2022-05-22] MEDS: MAGNESIUM OXIDE 400 MG TABLET PO SCH (08:40)
[2022-05-22] MEDS ORDERED: APIXABAN 5 MG TABLET PO SCH (09:00)
[2022-05-22] MEDS: HEPARIN DRIP 25,000 UNITS/500 ML PREMIX IV SCH (13:23)
[2022-05-22] MEDS: LACTATED RINGERS 1,000 ML IV SCH (18:02)
[2022-05-22] MEDS ORDERED: HEPARIN 5,000 UNIT/1 ML VIAL IV ONE (19:57)
[2022-05-22] MEDS: MELATONIN 3 MG TABLET PO PRN (20:23)
[2022-05-23] MEDS: ALBUTEROL 2.5 MG/3 ML NEB RESP TX SCH ×4 (02:51→21:56)
[2022-05-23] MEDS: HYDROmorphone 1 MG/1 ML SYRINGE IV PRN ×5 (04:40→20:20)
[2022-05-23] MEDS: PANTOPRAZOLE 40 MG TABLET PO SCH (08:42)
[2022-05-23] MEDS: MAGNESIUM OXIDE 400 MG TABLET PO SCH (08:42)
[2022-05-23] MEDS: MULTIVITAMIN (BEROCCA) TABLET PO SCH (08:42)
[2022-05-23] MEDS: DOCUSATE SODIUM 100 MG CAPSULE PO SCH ×2 (08:42→20:18)
[2022-05-23] MEDS: CHOLECALCIFEROL 1,000 UNIT TABLET PO SCH (08:42)
[2022-05-23] MEDS: THIAMINE 100 MG TABLET PO SCH (08:42)
[2022-05-23] MEDS: POLYETHYLENE GLYCOL POWDER 17 GM PACK PO SCH (08:43)
[2022-05-23] MEDS: guaiFENesin/DM ER 600-30 MG TABLET PO SCH ×2 (08:43→20:18)
[2022-05-23] MEDS: METOPROLOL TARTRATE 25 MG TABLET PO SCH ×2 (08:43→20:18)
[2022-05-23] MEDS: FERROUS SULFATE 325 MG TABLET PO SCH (08:43)
[2022-05-23] MEDS: LIPASE/PROTEASE/AMYLASE 4,200 UNITS CAPSULE PO SCH ×3 (08:43→16:00)
[2022-05-23] MEDS: NICOTINE 21 MG/24 HR PATCH TRANSDERM SCH (08:44)
[2022-05-23] MEDS: FOLIC ACID 1 MG TABLET PO SCH (08:50)
[2022-05-23] MEDS: HEPARIN DRIP 25,000 UNITS/500 ML PREMIX IV SCH ×2 (10:06→11:00)
[2022-05-23] MEDS: LACTATED RINGERS 1,000 ML IV SCH (10:48)
[2022-05-23] MEDS: MELATONIN 3 MG TABLET PO PRN (20:18)
[2022-05-24] MEDS: HYDROmorphone 1 MG/1 ML SYRINGE IV PRN ×6 (00:29→20:58)
[2022-05-24] MEDS: ALBUTEROL 2.5 MG/3 ML NEB RESP TX SCH ×2 (02:50→07:00)
[2022-05-24] MEDS: HEPARIN DRIP 25,000 UNITS/500 ML PREMIX IV SCH ×2 (04:30→12:06)
[2022-05-24 06:06] LABS: Basophils % 0.3 % (0.0-0.8); Eosinophils # 0.3 10*3/uL (0.0-0.87); Eosinophils % 2.8 % (0.00-10.9); Hematocrit 27.3 VOL% (42.0-52.0); Hemoglobin 8.6 GM/DL (14.0-18.0); Immature Granulocytes % 0.4 %; Immature Granulocytes Absolute 0.04 #; Lymphocytes # 1.4 10*3/uL (1.4-4.0); Lymphocytes % 12.2 % (21.2-54.2); Mean Corpuscular HGB Conc 31.5 GM/DL (32-36); Mean Corpuscular Volume 83.2 FL (87-102); Mean Platelet Volume 8.9 FL (9.6-12.0); Monocytes # 0.8 10*3/uL (0.11-0.8); Monocytes % 7.2 % (1.7-12.7); Neutrophils % 77.1 % (38.7-73.9); Platelet Count 619 T/CUMM (130-400); Red Blood Count 3.28 MC/CUMM (3.8-5.5); Red Cell Distribution Width 20.2 % (9.3-17.3); White Blood Count 11.2 T/CUMM (4-12)
[2022-05-24 06:15] LABS: Alanine Aminotransferase 17 U/L (16-61); Albumin 1.4 G/DL (3.4-5.0); Alkaline Phosphatase 197 U/L (45-117); Aspartate Amino Transferase 20 U/L (0-37); Bilirubin,Total < 0.39 MG/DL (0.20-1.00); Blood Urea Nitrogen 8 MG/DL (7-18); Calcium 8.6 MG/DL (8.5-10.1); Carbon Dioxide 26 MMOL/L (21-32); Chloride 100 MMOL/L (98-107); Glucose 126 MG/DL (74-106); Osmolality,Calculated 265.4 MOS/KG (273-304); Sodium 133 MMOL/L (136-145); Total Protein 6.1 G/DL (6.4-8.2)
[2022-05-24] MEDS: LIPASE/PROTEASE/AMYLASE 4,200 UNITS CAPSULE PO SCH ×3 (09:19→16:46)
[2022-05-24] MEDS: MULTIVITAMIN (BEROCCA) TABLET PO SCH (09:19)
[2022-05-24] MEDS: FOLIC ACID 1 MG TABLET PO SCH (09:20)
[2022-05-24] MEDS: PANTOPRAZOLE 40 MG TABLET PO SCH (09:20)
[2022-05-24] MEDS: CHOLECALCIFEROL 1,000 UNIT TABLET PO SCH (09:20)
[2022-05-24] MEDS: FERROUS SULFATE 325 MG TABLET PO SCH (09:20)
[2022-05-24] MEDS: MAGNESIUM OXIDE 400 MG TABLET PO SCH (09:20)
[2022-05-24] MEDS: guaiFENesin/DM ER 600-30 MG TABLET PO SCH ×2 (09:20→20:59)
[2022-05-24] MEDS: METOPROLOL TARTRATE 25 MG TABLET PO SCH ×2 (09:20→20:59)
[2022-05-24] MEDS: DOCUSATE SODIUM 100 MG CAPSULE PO SCH ×2 (09:20→20:59)
[2022-05-24] MEDS: NICOTINE 21 MG/24 HR PATCH TRANSDERM SCH (09:20)
[2022-05-24] MEDS: POLYETHYLENE GLYCOL POWDER 17 GM PACK PO SCH (09:20)
[2022-05-24] MEDS: THIAMINE 100 MG TABLET PO SCH (09:20)
[2022-05-24] MEDS ORDERED: fentaNYL 100 MCG/2 ML VIAL ONE (13:11)
[2022-05-24] MEDS ORDERED: propofoL 200 MG/20 ML VIAL IV ONE (13:33)
[2022-05-24] MEDS ORDERED: SEVOFLURANE 1 UNIT/15 MINUTE INH ONE (13:33)
[2022-05-24] MEDS ORDERED: LIDOCAINE 2% 5 ML VIAL ONE (13:33)
[2022-05-24] MEDS ORDERED: ONDANSETRON 4 MG/2 ML VIAL ONE (13:33)
[2022-05-24] MEDS ORDERED: ROCURONIUM 50 MG/5 ML VIAL IV ONE (13:34)
[2022-05-24] MEDS ORDERED: SUCCINYLCHOLINE 200 MG/10 ML VIAL ONE (13:34)
[2022-05-24] MEDS ORDERED: ePHEDrine 50 MG/ML VIAL ONE (13:54)
[2022-05-24] MEDS ORDERED: SUGAMMADEX 200 MG/2 ML VIAL IV ONE (14:07)
[2022-05-24] MEDS ORDERED: PHENYLEPHRINE 1 MG/10 ML SYRINGE IV ONE (14:10)
[2022-05-24] MEDS: ONDANSETRON 4 MG/2 ML VIAL IV PRN (15:22)
[2022-05-24] MEDS: LEVALBUTEROL 1.25 MG/3 ML NEB RESP TX SCH ×2 (15:50→23:31)
[2022-05-25] MEDS: HYDROmorphone 1 MG/1 ML SYRINGE IV PRN ×6 (01:06→21:06)
[2022-05-25] MEDS: HEPARIN DRIP 25,000 UNITS/500 ML PREMIX IV SCH ×2 (06:46→22:45)
[2022-05-25] MEDS: LEVALBUTEROL 1.25 MG/3 ML NEB RESP TX SCH ×3 (07:29→23:54)
[2022-05-25] MEDS: FOLIC ACID 1 MG TABLET PO SCH (09:03)
[2022-05-25] MEDS: PANTOPRAZOLE 40 MG TABLET PO SCH (09:03)
[2022-05-25] MEDS: MULTIVITAMIN (BEROCCA) TABLET PO SCH (09:03)
[2022-05-25] MEDS: CHOLECALCIFEROL 1,000 UNIT TABLET PO SCH (09:04)
[2022-05-25] MEDS: THIAMINE 100 MG TABLET PO SCH (09:04)
[2022-05-25] MEDS: POLYETHYLENE GLYCOL POWDER 17 GM PACK PO SCH (09:04)
[2022-05-25] MEDS: DOCUSATE SODIUM 100 MG CAPSULE PO SCH ×2 (09:04→21:06)
[2022-05-25] MEDS: FERROUS SULFATE 325 MG TABLET PO SCH (09:04)
[2022-05-25] MEDS: MAGNESIUM OXIDE 400 MG TABLET PO SCH (09:04)
[2022-05-25] MEDS: LIPASE/PROTEASE/AMYLASE 4,200 UNITS CAPSULE PO SCH ×3 (09:04→16:34)
[2022-05-25] MEDS: guaiFENesin/DM ER 600-30 MG TABLET PO SCH ×2 (09:04→21:06)
[2022-05-25] MEDS: NICOTINE 21 MG/24 HR PATCH TRANSDERM SCH (09:54)
[2022-05-25] MEDS: METOPROLOL TARTRATE 25 MG TABLET PO SCH ×2 (09:54→21:06)
[2022-05-26] MEDS: HYDROmorphone 1 MG/1 ML SYRINGE IV PRN ×5 (00:54→23:04)
[2022-05-26 05:31] LABS: Basophils # 0.1 10*3/uL (0.0-0.2); Basophils % 0.6 % (0.0-0.8); Eosinophils # 0.8 10*3/uL (0.0-0.87); Eosinophils % 5.6 % (0.00-10.9); Hematocrit 29.8 VOL% (42.0-52.0); Hemoglobin 9.3 GM/DL (14.0-18.0); Immature Granulocytes % 0.4 %; Immature Granulocytes Absolute 0.06 #; Lymphocytes # 1.7 10*3/uL (1.4-4.0); Lymphocytes % 12.6 % (21.2-54.2); Mean Corpuscular HGB Conc 31.2 GM/DL (32-36); Mean Corpuscular Volume 84.7 FL (87-102); Mean Platelet Volume 8.8 FL (9.6-12.0); Monocytes # 0.8 10*3/uL (0.11-0.8); Monocytes % 6.2 % (1.7-12.7); Neutrophils % 74.6 % (38.7-73.9); Platelet Count 667 T/CUMM (130-400); Red Blood Count 3.52 MC/CUMM (3.8-5.5); Red Cell Distribution Width 19.9 % (9.3-17.3); White Blood Count 13.4 T/CUMM (4-12)
[2022-05-26 06:09] LABS: Calcium 8.9 MG/DL (8.5-10.1); Osmolality,Calculated 270.8 MOS/KG (273-304)
[2022-05-26] MEDS: METOPROLOL TARTRATE 25 MG TABLET PO SCH ×2 (09:17→20:18)
[2022-05-26] MEDS: CHOLECALCIFEROL 1,000 UNIT TABLET PO SCH (09:17)
[2022-05-26] MEDS: FOLIC ACID 1 MG TABLET PO SCH (09:17)
[2022-05-26] MEDS: guaiFENesin/DM ER 600-30 MG TABLET PO SCH ×2 (09:17→20:18)
[2022-05-26] MEDS: DOCUSATE SODIUM 100 MG CAPSULE PO SCH ×2 (09:17→20:18)
[2022-05-26] MEDS: THIAMINE 100 MG TABLET PO SCH (09:17)
[2022-05-26] MEDS: PANTOPRAZOLE 40 MG TABLET PO SCH (09:18)
[2022-05-26] MEDS: POLYETHYLENE GLYCOL POWDER 17 GM PACK PO SCH (09:18)
[2022-05-26] MEDS: FERROUS SULFATE 325 MG TABLET PO SCH (09:18)
[2022-05-26] MEDS: LIPASE/PROTEASE/AMYLASE 4,200 UNITS CAPSULE PO SCH ×3 (09:18→17:09)
[2022-05-26] MEDS: MULTIVITAMIN (BEROCCA) TABLET PO SCH (09:18)
[2022-05-26] MEDS: MAGNESIUM OXIDE 400 MG TABLET PO SCH (09:18)
[2022-05-26] MEDS: NICOTINE 21 MG/24 HR PATCH TRANSDERM SCH (09:24)
[2022-05-26] MEDS: LEVALBUTEROL 1.25 MG/3 ML NEB RESP TX SCH ×3 (10:11→22:33)
[2022-05-26] MEDS ORDERED: METOPROLOL TARTRATE 5 MG/5 ML VIAL IV ONE (12:36)
[2022-05-26] MEDS ORDERED: METOPROLOL TARTRATE 25 MG TABLET PO ONE (12:51)
[2022-05-26 14:14] LABS: Calcium 8.8 MG/DL (8.5-10.1); Osmolality,Calculated 264.5 MOS/KG (273-304); Potassium 4.6 MMOL/L (3.5-5.1)
[2022-05-26] MEDS: HEPARIN DRIP 25,000 UNITS/500 ML PREMIX IV SCH (15:49)
[2022-05-26] MEDS: MELATONIN 3 MG TABLET PO PRN (20:18)
[2022-05-27] MEDS: HYDROmorphone 1 MG/1 ML SYRINGE IV PRN ×5 (03:24→22:10)
[2022-05-27 05:22] LABS: Basophils # 0.1 10*3/uL (0.0-0.2); Basophils % 0.3 % (0.0-0.8); Eosinophils % 0.1 % (0.00-10.9); Hematocrit 31.5 VOL% (42.0-52.0); Hemoglobin 10.1 GM/DL (14.0-18.0); Immature Granulocytes % 0.6 %; Immature Granulocytes Absolute 0.15 #; Lymphocytes # 1.2 10*3/uL (1.4-4.0); Lymphocytes % 5.2 % (21.2-54.2); Mean Corpuscular HGB Conc 32.1 GM/DL (32-36); Mean Corpuscular Volume 81.6 FL (87-102); Mean Platelet Volume 10.3 FL (9.6-12.0); Monocytes # 1.6 10*3/uL (0.11-0.8); Neutrophils % 86.8 % (38.7-73.9); Platelet Count 485 T/CUMM (130-400); Red Blood Count 3.86 MC/CUMM (3.8-5.5); Red Cell Distribution Width 19.2 % (9.3-17.3); White Blood Count 23.3 T/CUMM (4-12)
[2022-05-27 05:32] LABS: Band Neutrophils 1 % (0-10); Hypochromia 1+; Lymphocytes 5 % (20-55); Total Cells Counted 100
[2022-05-27 05:33] LABS: Anisocytosis 1+; Microcytosis 1+; Polychromasia Slight
[2022-05-27 05:38] LABS: Calcium 8.3 MG/DL (8.5-10.1); Osmolality,Calculated 263.5 MOS/KG (273-304); Potassium 5.3 MMOL/L (3.5-5.1)
[2022-05-27] MEDS: LEVALBUTEROL 1.25 MG/3 ML NEB RESP TX SCH ×4 (07:50→23:50)
[2022-05-27] MEDS: LIPASE/PROTEASE/AMYLASE 4,200 UNITS CAPSULE PO SCH ×3 (08:55→17:01)
[2022-05-27] MEDS: guaiFENesin/DM ER 600-30 MG TABLET PO SCH ×2 (08:55→20:04)
[2022-05-27] MEDS: METOPROLOL TARTRATE 25 MG TABLET PO SCH ×2 (08:55→20:04)
[2022-05-27] MEDS: FERROUS SULFATE 325 MG TABLET PO SCH (08:56)
[2022-05-27] MEDS: MAGNESIUM OXIDE 400 MG TABLET PO SCH (08:56)
[2022-05-27] MEDS: DOCUSATE SODIUM 100 MG CAPSULE PO SCH ×2 (08:56→20:04)
[2022-05-27] MEDS: THIAMINE 100 MG TABLET PO SCH (08:56)
[2022-05-27] MEDS: FOLIC ACID 1 MG TABLET PO SCH (08:56)
[2022-05-27] MEDS: CHOLECALCIFEROL 1,000 UNIT TABLET PO SCH (08:56)
[2022-05-27] MEDS: MULTIVITAMIN (BEROCCA) TABLET PO SCH (08:56)
[2022-05-27] MEDS: POLYETHYLENE GLYCOL POWDER 17 GM PACK PO SCH (08:59)
[2022-05-27] MEDS: NICOTINE 21 MG/24 HR PATCH TRANSDERM SCH (08:59)
[2022-05-27] MEDS: PANTOPRAZOLE 40 MG TABLET PO SCH (08:59)
[2022-05-27] MEDS: HEPARIN DRIP 25,000 UNITS/500 ML PREMIX IV SCH (11:00)
[2022-05-27] MEDS ORDERED: SODIUM POLYSTYRENE SULFATE 15 GM/60 ML BOTTLE PO ONE (11:13)
[2022-05-27] MEDS: ASPIRIN EC 81 MG TABLET PO SCH (12:01)
[2022-05-28] MEDS: HEPARIN DRIP 25,000 UNITS/500 ML PREMIX IV SCH ×2 (02:25→19:52)
[2022-05-28] MEDS: HYDROmorphone 1 MG/1 ML SYRINGE IV PRN ×6 (02:28→22:55)
[2022-05-28 06:12] LABS: Calcium 7.9 MG/DL (8.5-10.1); Osmolality,Calculated 267.2 MOS/KG (273-304); Potassium 3.4 MMOL/L (3.5-5.1)
[2022-05-28 06:35] LABS: Basophils % 0.2 % (0.0-0.8); Eosinophils # 0.1 10*3/uL (0.0-0.87); Eosinophils % 0.6 % (0.00-10.9); Hemoglobin 7.8 GM/DL (14.0-18.0); Immature Granulocytes % 0.5 %; Immature Granulocytes Absolute 0.07 #; Lymphocytes # 1.3 10*3/uL (1.4-4.0); Lymphocytes % 8.7 % (21.2-54.2); Mean Corpuscular HGB Conc 31.2 GM/DL (32-36); Mean Corpuscular Volume 82.8 FL (87-102); Mean Platelet Volume 9.1 FL (9.6-12.0); Monocytes % 6.8 % (1.7-12.7); Neutrophils % 83.2 % (38.7-73.9); Platelet Count 481 T/CUMM (130-400); Red Blood Count 3.02 MC/CUMM (3.8-5.5); Red Cell Distribution Width 18.8 % (9.3-17.3); White Blood Count 14.8 T/CUMM (4-12)
[2022-05-28] MEDS: LEVALBUTEROL 1.25 MG/3 ML NEB RESP TX SCH ×2 (07:25→14:15)
[2022-05-28] MEDS: LIPASE/PROTEASE/AMYLASE 4,200 UNITS CAPSULE PO SCH ×3 (08:17→17:03)
[2022-05-28] MEDS: FERROUS SULFATE 325 MG TABLET PO SCH (08:18)
[2022-05-28] MEDS: MULTIVITAMIN (BEROCCA) TABLET PO SCH (08:18)
[2022-05-28] MEDS: ASPIRIN EC 81 MG TABLET PO SCH (08:18)
[2022-05-28] MEDS: DOCUSATE SODIUM 100 MG CAPSULE PO SCH ×2 (08:18→22:56)
[2022-05-28] MEDS: FOLIC ACID 1 MG TABLET PO SCH (08:18)
[2022-05-28] MEDS: METOPROLOL TARTRATE 25 MG TABLET PO SCH ×2 (08:18→22:56)
[2022-05-28] MEDS: MAGNESIUM OXIDE 400 MG TABLET PO SCH (08:19)
[2022-05-28] MEDS: NICOTINE 21 MG/24 HR PATCH TRANSDERM SCH (08:19)
[2022-05-28] MEDS: guaiFENesin/DM ER 600-30 MG TABLET PO SCH ×2 (08:19→22:56)
[2022-05-28] MEDS: THIAMINE 100 MG TABLET PO SCH (08:19)
[2022-05-28] MEDS: CHOLECALCIFEROL 1,000 UNIT TABLET PO SCH (08:19)
[2022-05-28] MEDS: PANTOPRAZOLE 40 MG TABLET PO SCH (08:19)
[2022-05-28] MEDS: POLYETHYLENE GLYCOL POWDER 17 GM PACK PO SCH (08:19)
[2022-05-28] MEDS ORDERED: POTASSIUM CHLORIDE 20 MEQ TABLET PO ONE (10:30)
[2022-05-28] MEDS: PANTOPRAZOLE 40 MG VIAL IV SCH ×2 (11:16→22:56)
[2022-05-28 11:22] LABS: Hematocrit 26.9 VOL% (42.0-52.0); Hemoglobin 8.3 GM/DL (14.0-18.0)
[2022-05-28 16:50] LABS: Hematocrit 28.9 VOL% (42.0-52.0); Hemoglobin 8.9 GM/DL (14.0-18.0)
[2022-05-28] MEDS: MELATONIN 3 MG TABLET PO PRN (22:56)
[2022-05-28 23:19] LABS: Hematocrit 27.1 VOL% (42.0-52.0); Hemoglobin 8.4 GM/DL (14.0-18.0)
[2022-05-29] MEDS: LEVALBUTEROL 1.25 MG/3 ML NEB RESP TX SCH ×4 (00:12→22:38)
[2022-05-29] MEDS: HYDROmorphone 1 MG/1 ML SYRINGE IV PRN ×6 (03:06→23:10)
[2022-05-29 06:33] LABS: Basophils % 0.1 % (0.0-0.8); Eosinophils % 0.3 % (0.00-10.9); Hemoglobin 8.1 GM/DL (14.0-18.0); Immature Granulocytes % 0.4 %; Immature Granulocytes Absolute 0.06 #; Lymphocytes % 6.4 % (21.2-54.2); Mean Corpuscular HGB Conc 31.2 GM/DL (32-36); Mean Corpuscular Volume 83.6 FL (87-102); Mean Platelet Volume 9.3 FL (9.6-12.0); Monocytes # 1.1 10*3/uL (0.11-0.8); Monocytes % 7.1 % (1.7-12.7); Neutrophils % 85.7 % (38.7-73.9); Platelet Count 571 T/CUMM (130-400); Red Blood Count 3.11 MC/CUMM (3.8-5.5); Red Cell Distribution Width 18.5 % (9.3-17.3); White Blood Count 15.4 T/CUMM (4-12)
[2022-05-29 07:07] LABS: Calcium 8.2 MG/DL (8.5-10.1); Osmolality,Calculated 269.1 MOS/KG (273-304); Potassium 3.5 MMOL/L (3.5-5.1)
[2022-05-29] MEDS: guaiFENesin/DM ER 600-30 MG TABLET PO SCH ×2 (09:59→22:17)
[2022-05-29] MEDS: CHOLECALCIFEROL 1,000 UNIT TABLET PO SCH (09:59)
[2022-05-29] MEDS: FERROUS SULFATE 325 MG TABLET PO SCH (09:59)
[2022-05-29] MEDS: LIPASE/PROTEASE/AMYLASE 4,200 UNITS CAPSULE PO SCH ×3 (09:59→17:21)
[2022-05-29] MEDS: THIAMINE 100 MG TABLET PO SCH (09:59)
[2022-05-29] MEDS: ASPIRIN EC 81 MG TABLET PO SCH (09:59)
[2022-05-29] MEDS: MULTIVITAMIN (BEROCCA) TABLET PO SCH (09:59)
[2022-05-29] MEDS: MAGNESIUM OXIDE 400 MG TABLET PO SCH (09:59)
[2022-05-29] MEDS: POLYETHYLENE GLYCOL POWDER 17 GM PACK PO SCH (10:00)
[2022-05-29] MEDS: FOLIC ACID 1 MG TABLET PO SCH (10:00)
[2022-05-29] MEDS: DOCUSATE SODIUM 100 MG CAPSULE PO SCH ×2 (10:00→22:17)
[2022-05-29] MEDS: METOPROLOL TARTRATE 25 MG TABLET PO SCH ×2 (10:00→22:17)
[2022-05-29] MEDS: NICOTINE 21 MG/24 HR PATCH TRANSDERM SCH (10:00)
[2022-05-29] MEDS: PANTOPRAZOLE 40 MG VIAL IV SCH ×2 (10:00→22:17)
[2022-05-29] MEDS: HEPARIN DRIP 25,000 UNITS/500 ML PREMIX IV SCH (13:50)
[2022-05-29] MEDS ORDERED: PHENYLEPH/MINERAL OIL/PETROLAT 57 GM TUBE TOP PRN (15:16)
[2022-05-30 02:51] LABS: Basophils # 0.1 10*3/uL (0.0-0.2); Basophils % 0.3 % (0.0-0.8); Eosinophils # 0.1 10*3/uL (0.0-0.87); Eosinophils % 0.5 % (0.00-10.9); Hematocrit 25.7 VOL% (42.0-52.0); Hemoglobin 7.9 GM/DL (14.0-18.0); Immature Granulocytes % 0.5 %; Immature Granulocytes Absolute 0.08 #; Lymphocytes # 1.1 10*3/uL (1.4-4.0); Lymphocytes % 6.6 % (21.2-54.2); Mean Corpuscular HGB Conc 30.7 GM/DL (32-36); Mean Corpuscular Volume 84.3 FL (87-102); Mean Platelet Volume 11.5 FL (9.6-12.0); Monocytes # 1.7 10*3/uL (0.11-0.8); Monocytes % 10.1 % (1.7-12.7); Platelet Count 421 T/CUMM (130-400); Red Blood Count 3.05 MC/CUMM (3.8-5.5); White Blood Count 16.5 T/CUMM (4-12)
[2022-05-30 02:52] LABS: Calcium 7.9 MG/DL (8.5-10.1); Osmolality,Calculated 265.2 MOS/KG (273-304); Potassium 3.4 MMOL/L (3.5-5.1)
[2022-05-30] MEDS: HYDROmorphone 1 MG/1 ML SYRINGE IV PRN ×5 (02:52→21:14)
[2022-05-30] MEDS: METOPROLOL TARTRATE 25 MG TABLET PO SCH ×2 (09:40→21:15)
[2022-05-30] MEDS: FERROUS SULFATE 325 MG TABLET PO SCH (09:40)
[2022-05-30] MEDS: FOLIC ACID 1 MG TABLET PO SCH (09:40)
[2022-05-30] MEDS: DOCUSATE SODIUM 100 MG CAPSULE PO SCH ×2 (09:40→21:15)
[2022-05-30] MEDS: ASPIRIN EC 81 MG TABLET PO SCH (09:40)
[2022-05-30] MEDS: MAGNESIUM OXIDE 400 MG TABLET PO SCH (09:40)
[2022-05-30] MEDS: PANTOPRAZOLE 40 MG VIAL IV SCH ×2 (09:40→21:15)
[2022-05-30] MEDS: CHOLECALCIFEROL 1,000 UNIT TABLET PO SCH (09:41)
[2022-05-30] MEDS: MULTIVITAMIN (BEROCCA) TABLET PO SCH (09:41)
[2022-05-30] MEDS: THIAMINE 100 MG TABLET PO SCH (09:41)
[2022-05-30] MEDS: guaiFENesin/DM ER 600-30 MG TABLET PO SCH ×2 (09:41→21:15)
[2022-05-30] MEDS: NICOTINE 21 MG/24 HR PATCH TRANSDERM SCH (09:42)
[2022-05-30] MEDS: POLYETHYLENE GLYCOL POWDER 17 GM PACK PO SCH (09:42)
[2022-05-30] MEDS: LIPASE/PROTEASE/AMYLASE 4,200 UNITS CAPSULE PO SCH ×3 (09:48→17:19)
[2022-05-30] MEDS: HEPARIN DRIP 25,000 UNITS/500 ML PREMIX IV SCH (17:21)
[2022-05-31] MEDS: HYDROmorphone 1 MG/1 ML SYRINGE IV PRN ×5 (01:24→20:18)
[2022-05-31] MEDS: HEPARIN DRIP 25,000 UNITS/500 ML PREMIX IV SCH ×2 (05:30→20:28)
[2022-05-31 05:32] LABS: Basophils # 0.1 10*3/uL (0.0-0.2); Basophils % 0.2 % (0.0-0.8); Eosinophils # 0.2 10*3/uL (0.0-0.87); Eosinophils % 0.8 % (0.00-10.9); Hematocrit 31.4 VOL% (42.0-52.0); Hemoglobin 9.6 GM/DL (14.0-18.0); Immature Granulocytes % 0.7 %; Immature Granulocytes Absolute 0.19 #; Lymphocytes # 1.1 10*3/uL (1.4-4.0); Mean Corpuscular HGB Conc 30.6 GM/DL (32-36); Mean Corpuscular Volume 84.6 FL (87-102); Mean Platelet Volume 9.5 FL (9.6-12.0); Monocytes # 1.9 10*3/uL (0.11-0.8); Neutrophils % 87.3 % (38.7-73.9); Platelet Count 753 T/CUMM (130-400); Red Blood Count 3.71 MC/CUMM (3.8-5.5); Red Cell Distribution Width 18.6 % (9.3-17.3); White Blood Count 26.4 T/CUMM (4-12)
[2022-05-31 05:44] LABS: Calcium 8.6 MG/DL (8.5-10.1); Osmolality,Calculated 267.1 MOS/KG (273-304); Potassium 3.5 MMOL/L (3.5-5.1)
[2022-05-31 06:01] LABS: Eosinophils 1 % (0-10); Lymphocytes 1 % (20-55); Platelet Estimate Increased; Total Cells Counted 100
[2022-05-31] MEDS: ASPIRIN EC 81 MG TABLET PO SCH (09:57)
[2022-05-31] MEDS: LIPASE/PROTEASE/AMYLASE 4,200 UNITS CAPSULE PO SCH ×3 (09:57→17:13)
[2022-05-31] MEDS: CHOLECALCIFEROL 1,000 UNIT TABLET PO SCH (09:57)
[2022-05-31] MEDS: FERROUS SULFATE 325 MG TABLET PO SCH (09:57)
[2022-05-31] MEDS: MULTIVITAMIN (BEROCCA) TABLET PO SCH (09:57)
[2022-05-31] MEDS: DOCUSATE SODIUM 100 MG CAPSULE PO SCH ×2 (09:57→20:19)
[2022-05-31] MEDS: MAGNESIUM OXIDE 400 MG TABLET PO SCH (09:58)
[2022-05-31] MEDS: POLYETHYLENE GLYCOL POWDER 17 GM PACK PO SCH (09:58)
[2022-05-31] MEDS: PANTOPRAZOLE 40 MG VIAL IV SCH ×2 (09:58→20:19)
[2022-05-31] MEDS: THIAMINE 100 MG TABLET PO SCH (09:58)
[2022-05-31] MEDS: FOLIC ACID 1 MG TABLET PO SCH (09:58)
[2022-05-31] MEDS: METOPROLOL TARTRATE 25 MG TABLET PO SCH ×3 (09:58→22:58)
[2022-05-31] MEDS: NICOTINE 21 MG/24 HR PATCH TRANSDERM SCH (09:59)
[2022-05-31] MEDS: guaiFENesin/DM ER 600-30 MG TABLET PO SCH ×2 (10:15→20:19)
[2022-05-31] MEDS ORDERED: MAGNESIUM SULF RIDER 2 GM/50 ML PREMIX IV ONE (13:30)
[2022-05-31] MEDS ORDERED: POTASSIUM CHLORIDE 20 MEQ TABLET PO ONE (13:30)
[2022-05-31] MEDS: SODIUM CHLORIDE 0.9% 1,000 ML IV SCH (14:56)
[2022-05-31] MEDS: MELATONIN 3 MG TABLET PO PRN (20:20)
[2022-06-01] MEDS: HYDROmorphone 1 MG/1 ML SYRINGE IV PRN ×6 (00:36→21:51)
[2022-06-01] MEDS: SODIUM CHLORIDE 0.9% 1,000 ML IV SCH ×2 (05:26→18:12)
[2022-06-01 06:04] LABS: Basophils % 0.2 % (0.0-0.8); Eosinophils # 0.4 10*3/uL (0.0-0.87); Eosinophils % 2.3 % (0.00-10.9); Hematocrit 25.3 VOL% (42.0-52.0); Hemoglobin 7.9 GM/DL (14.0-18.0); Immature Granulocytes % 1.1 %; Immature Granulocytes Absolute 0.19 #; Lymphocytes # 1.3 10*3/uL (1.4-4.0); Lymphocytes % 8.1 % (21.2-54.2); Mean Corpuscular HGB Conc 31.2 GM/DL (32-36); Mean Corpuscular Volume 84.3 FL (87-102); Mean Platelet Volume 9.7 FL (9.6-12.0); Monocytes # 1.7 10*3/uL (0.11-0.8); Monocytes % 10.4 % (1.7-12.7); Neutrophils % 77.9 % (38.7-73.9); Platelet Count 634 T/CUMM (130-400); Red Cell Distribution Width 18.3 % (9.3-17.3); White Blood Count 16.6 T/CUMM (4-12)
[2022-06-01 06:29] LABS: Osmolality,Calculated 270.8 MOS/KG (273-304); Potassium 3.3 MMOL/L (3.5-5.1)
[2022-06-01] MEDS ORDERED: POTASSIUM CHLORIDE 20 MEQ TABLET PO ONE (08:00)
[2022-06-01] MEDS: ASPIRIN EC 81 MG TABLET PO SCH (09:12)
[2022-06-01] MEDS: MAGNESIUM OXIDE 400 MG TABLET PO SCH (09:13)
[2022-06-01] MEDS: CHOLECALCIFEROL 1,000 UNIT TABLET PO SCH (09:13)
[2022-06-01] MEDS: DOCUSATE SODIUM 100 MG CAPSULE PO SCH ×2 (09:13→21:01)
[2022-06-01] MEDS: THIAMINE 100 MG TABLET PO SCH (09:13)
[2022-06-01] MEDS: guaiFENesin/DM ER 600-30 MG TABLET PO SCH ×2 (09:13→21:01)
[2022-06-01] MEDS: MULTIVITAMIN (BEROCCA) TABLET PO SCH (09:13)
[2022-06-01] MEDS: METOPROLOL TARTRATE 25 MG TABLET PO SCH ×2 (09:13→21:02)
[2022-06-01] MEDS: FOLIC ACID 1 MG TABLET PO SCH (09:13)
[2022-06-01] MEDS: LIPASE/PROTEASE/AMYLASE 4,200 UNITS CAPSULE PO SCH ×3 (09:13→16:40)
[2022-06-01] MEDS: FERROUS SULFATE 325 MG TABLET PO SCH (09:13)
[2022-06-01] MEDS: FUROSEMIDE 40 MG TABLET PO SCH (09:13)
[2022-06-01] MEDS: SPIRONOLACTONE 25 MG TABLET PO SCH (09:14)
[2022-06-01] MEDS: POLYETHYLENE GLYCOL POWDER 17 GM PACK PO SCH (09:14)
[2022-06-01] MEDS: PANTOPRAZOLE 40 MG VIAL IV SCH ×2 (09:15→20:59)
[2022-06-01] MEDS: NICOTINE 21 MG/24 HR PATCH TRANSDERM SCH (09:15)
[2022-06-01] MEDS: HEPARIN DRIP 25,000 UNITS/500 ML PREMIX IV SCH ×2 (11:59→22:30)
[2022-06-01] MEDS: MELATONIN 3 MG TABLET PO PRN (21:01)
[2022-06-02] MEDS: HYDROmorphone 1 MG/1 ML SYRINGE IV PRN ×3 (02:54→12:06)
[2022-06-02] MEDS: SODIUM CHLORIDE 0.9% 1,000 ML IV SCH ×2 (05:36→11:14)
[2022-06-02 06:05] LABS: Basophils % 0.2 % (0.0-0.8); Eosinophils # 0.5 10*3/uL (0.0-0.87); Eosinophils % 2.7 % (0.00-10.9); Hematocrit 25.2 VOL% (42.0-52.0); Hemoglobin 7.8 GM/DL (14.0-18.0); Immature Granulocytes % 0.5 %; Immature Granulocytes Absolute 0.09 #; Lymphocytes # 1.6 10*3/uL (1.4-4.0); Lymphocytes % 8.3 % (21.2-54.2); Mean Platelet Volume 9.6 FL (9.6-12.0); Monocytes # 2.3 10*3/uL (0.11-0.8); Monocytes % 12.3 % (1.7-12.7); Platelet Count 682 T/CUMM (130-400); Red Cell Distribution Width 18.3 % (9.3-17.3); White Blood Count 18.8 T/CUMM (4-12)
[2022-06-02 06:11] LABS: Bacteria,Urine Occasional /HPF (Few); Mucus,Urine Many /LPF (Occasional); RBC,Urine 2 /HPF (0-4); Squamous Epithelial Cell,Urine Occasional /HPF (0-10)
[2022-06-02 06:14] LABS: Bilirubin,Urine Negative (Negative); Blood, Urine Negative (Negative); Glucose,Urine (UA) Negative (Negative); Ketones,Urine 15 mg/dL (Negative); Nitrite,Urine Negative (Negative); Protein,Urine Trace mg/dL (Negative); Urine Appearance Clear (Clear); Urine Color Yellow (Yellow); Urine Urobilinogen 0.2 eU/dL (<2.0)
[2022-06-02 06:18] LABS: Calcium 7.8 MG/DL (8.5-10.1); Osmolality,Calculated 272.7 MOS/KG (273-304); Potassium 3.2 MMOL/L (3.5-5.1)
[2022-06-02 06:27] LABS: Eosinophils 3 % (0-10); Lymphocytes 7 % (20-55); Platelet Estimate Increased; Total Cells Counted 100
[2022-06-02 06:28] LABS: Hypochromia Slight; Microcytosis Slight
[2022-06-02 06:30] LABS: Barbiturates Screen,Urine Negative (Negative); Benzodiazepines Screen,Urine Negative (Negative); Cannabinoid Screen,Urine Negative (Negative); Opiate Screen,Urine Positive (Negative); Phencyclidine Screen,Urine Negative (Negative)
[2022-06-02] MEDS: POLYETHYLENE GLYCOL POWDER 17 GM PACK PO SCH (10:36)
[2022-06-02] MEDS: ASPIRIN EC 81 MG TABLET PO SCH (10:37)
[2022-06-02] MEDS: DOCUSATE SODIUM 100 MG CAPSULE PO SCH (10:37)
[2022-06-02] MEDS: FERROUS SULFATE 325 MG TABLET PO SCH (10:37)
[2022-06-02] MEDS: MULTIVITAMIN (BEROCCA) TABLET PO SCH (10:37)
[2022-06-02] MEDS: METOPROLOL TARTRATE 25 MG TABLET PO SCH (10:37)
[2022-06-02] MEDS: FUROSEMIDE 40 MG TABLET PO SCH (10:37)
[2022-06-02] MEDS: FOLIC ACID 1 MG TABLET PO SCH (10:37)
[2022-06-02] MEDS: SPIRONOLACTONE 25 MG TABLET PO SCH (10:37)
[2022-06-02] MEDS: LIPASE/PROTEASE/AMYLASE 4,200 UNITS CAPSULE PO SCH ×2 (10:37→12:03)
[2022-06-02] MEDS: THIAMINE 100 MG TABLET PO SCH (10:37)
[2022-06-02] MEDS: guaiFENesin/DM ER 600-30 MG TABLET PO SCH (10:38)
[2022-06-02] MEDS: MAGNESIUM OXIDE 400 MG TABLET PO SCH (10:38)
[2022-06-02] MEDS: CHOLECALCIFEROL 1,000 UNIT TABLET PO SCH (10:38)
[2022-06-02] MEDS: PANTOPRAZOLE 40 MG VIAL IV SCH (10:39)
[2022-06-02] MEDS: NICOTINE 21 MG/24 HR PATCH TRANSDERM SCH (10:40)
[2022-06-02 15:26] VITALS: BP 128/61
[2022-06-02] MEDS ORDERED: POLYETHYLENE GLYCOL POWDER 17 GM PACK PO SCH (21:00)
[2022-06-02] MEDS ORDERED: APIXABAN 5 MG TABLET PO SCH (21:00)
[2022-06-03] MEDS ORDERED: LINACLOTIDE 145 MCG CAPSULE PO SCH (07:30)
== END 2022-06-02 16:20 | disposition home or self-care (01) | DRG 371 ==
LOC: N.EDINP 16:59 → N.ED 16:59 → SUATTDRO 21:56 → N.EDINP 22:23 → N.2W 23:36 → SUATTDRO 05-17 11:27 → N.3E 05-17 16:36
PROVIDERS: ADMIT Hospitalist; ATTEND Hospitalist
PROC: ERCPWSP (ICD-10-PCS; 2022-05-21 11:05)